=== PATIENT | female | born 1980 | race Caucasian/White ===

== ENCOUNTER 2016-07-13 12:38 | Outpatient (CLI) | payer OTHER, MEDICAID | END 2016-07-13 12:39 | disposition home or self-care (01) | DX: Z20.5 Contact with and (suspected) exposure to viral hepatitis (principal); E03.9 Hypothyroidism, unspecified; R53.83 Other fatigue; G60.9 Hereditary and idiopathic neuropathy, unspecified ==

== ENCOUNTER 2016-11-27 09:36 | Outpatient (CLI) | payer OTHER | END 2016-11-27 09:37 | disposition home or self-care (01) | LOC: LAB.F 09:36 | PROVIDERS: ATTEND Physician Assistant Medical | DX: R53.83 Other fatigue (principal) | CPT/HCPCS: 36415; 84443 ==

== ENCOUNTER 2016-12-10 17:34 | Outpatient (CLI) | payer OTHER ==
--- NOTE | 2016-12-11 09:21 | XRAY Report ---
THREE-VIEW THORACIC SPINE: 12/10/2016 CLINICAL INDICATION: Back pain. FINDINGS: AP, lateral, swimmer's views of the thoracic spine demonstrate mild degenerative disk dise ase. There is no evidence of fracture. No paraspinal hematoma is seen. IMPRESSION: MILD DEGENERATIVE DISK DISEASE. NO EVIDENCE OF FRACTURE. JOB #: [id number] EXT JOB #:[id number]
== END 2016-12-10 17:35 | disposition home or self-care (01) ==
LOC: DI 17:34
PROVIDERS: ATTEND Physician Assistant Medical
DX: M54.6 Pain in thoracic spine (principal)
CPT/HCPCS: 72072

== ENCOUNTER 2016-12-17 12:39 | Outpatient (CLI) | payer OTHER ==
--- NOTE | 2016-12-17 17:49 | XRAY Report ---
THREE-VIEW CERVICAL SPINE: 12/17/2016 CLINICAL INDICATION: Neck pain. FINDINGS: AP, lateral, odontoid views of the cervical spine demonstrate minimal degenerative disk di sease, with tiny osteophytes. There is no evidence of acute fracture or subluxation. The prevertebr al soft tissues are unremarkable. IMPRESSION: MINIMAL DEGENERATIVE CHANGES. JOB #: [id number] EXT JOB #:[id number]
== END 2016-12-17 12:40 | disposition home or self-care (01) ==
LOC: DI 12:39
PROVIDERS: ATTEND Physician Assistant Medical
DX: M54.2 Cervicalgia (principal)
CPT/HCPCS: 72040

== ENCOUNTER 2017-01-07 11:13 | Emergency (ER) | payer OTHER, MEDICAID ==
--- NOTE | 2017-01-07 12:55 | ED Physician Documentation ---
PD HPI SKIN - Stated complaint Stated Complaint: LUMP L CALF, PX - Chief complaint Chief Complaint: Ext Problem - History obtained from History obtained from: Patient - History of Present Illness Timing - duration: Days (2-3) Timing - details: Gradual onset (she has felt a small lump under skin in the area in recent past, without noted injury to the area. It is more tender, red, swollen the past couple of days. No skin sores.), Still present Location: LLE (anterolateral lower leg.) Quality / character: Painful, Discolored (red) Associated symptoms: No: Fever, Myalgias, Joint pain Contributing factors: No: Insect bite /sting Similar symptoms before: Has not had sx before Recently seen: Not recently seen Review of Systems Constitutional: denies: Fever, Chills, Myalgias GI: denies: Nausea, Vomiting Neurologic: denies: Focal weakness, Numbness PD PAST MEDICAL HISTORY - Past Medical History Cardiovascular: Atrial fibrillation, Other Respiratory: Asthma Neuro: None Endocrine/Autoimmune: HyPOthyroidism, Other GI: Other 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 : 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 HEENT: Chronic vision loss Psych: None Musculoskeletal: None Derm: Other - Past Surgical History Past Surgical History: Yes General: Cholecystectomy, 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 Derm: Other - Present Medications Home Medications: Ambulatory Orders Medication Instructions Recorded Confirmed Albuterol [Ventolin Hfa] 2 puffs INH Q4H PRN 11/27/14 01/07/17 Biotin [Norberto Biotin] 10,000 mcg PO DAILY 11/27/14 01/07/17 Cholecalciferol (Vitamin D3) 1,000 unit PO DAILY 11/27/14 01/07/17 [Vitamin D3] Folic Acid 400 mcg PO DAILY 11/27/14 01/07/17 Garlic 1 each PO BID 11/27/14 01/07/17 Goldenseal/Echinacea Purpurea 2 cap PO BID 11/27/14 01/07/17 [Echinacea & Goldenseal Cap] Levothyroxine [Synthroid] 125 mcg PO DAILY 11/27/14 01/07/17 Lisinopril 10 mg PO DAILY 11/27/14 01/07/17 Milk Thistle 150 mg PO DAILY 11/27/14 01/07/17 Multivitamin/Iron/Folic Acid 1 each PO DAILY 11/27/14 01/07/17 [Multi-Day Plus Iron Tablet] [place]-3/Dha/Epa/Fish Oil [Fish Oil] 200 mg PO DAILY 11/27/14 01/07/17 Vitamin E 400 unit PO DAILY 11/27/14 01/07/17 metFORMIN [Glucophage] 1,500 mg PO DAILY 11/27/14 01/07/17 Atenolol 12.5 mg PO BID 01/07/17 01/07/17 Azithromycin [Zithromax] 250 mg PO DAILY #4 tablet 01/07/17 HYDROcod/ACETAM 5/325 [[place] 5/325] 1 tab PO Q6H PRN #15 tablet 01/07/17 Omeprazole [PriLOSEC] 20 mg PO BID 01/07/17 01/07/17 - Allergies Allergies/Adverse Reactions: Allergies Allergy/AdvReac Type Severity Reaction Status Date / Time tetanus and diphtheria Allergy Anaphylaxis Verified 01/07/17 11:53 toxoids [tetanus & diphtheria toxoids] amoxicillin AdvReac Unknown Rash Verified 01/07/17 11:53 haloperidol [From Haldol] AdvReac Unknown Hallucinati Verified 01/07/17 11:53 ons haloperidol lactate * AdvReac Unknown Hallucinati Verified 01/07/17 11:53 [From Haldol] ons prochlorperazine edisylate * AdvReac Unknown Hallucinati Verified 01/07/17 11:53 [From Compazine] ons prochlorperazine maleate * AdvReac Unknown Hallucinati Verified 01/07/17 11:53 [From Compazine] ons cephalexin monohydrate * AdvReac Edema Verified 01/07/17 13:52 [From Keflex] - Social History Does the pt smoke?: No Smoking Status: Never smoker Does the pt drink ETOH?: No Does the pt have substance abuse?: No - Immunizations Immunizations are current?: Yes - POLST Patient has POLST: No PD ED PE NORMAL - Vitals Vital signs reviewed: Yes - General General: Alert and oriented X 3, Well developed/nourished - Neck Neck: Supple, no meningeal sign, No adenopathy - Derm Derm: Normal color, Warm and dry - Extremities Extremities: Other (left anterolateral lower leg with firm area of tissue under skin but moveable and no fluctuance. Likely lipoma. U/S has that appearance, but also some cellulitic look and there is redness and swelling locally on exam. No fluctuance and on U/S no fluid collection. ) - Neuro Neuro: Alert and oriented X 3, No motor deficit, No sensory deficit Results - Vitals Vitals: Vital Signs - 24 hr 01/07/17 01/07/17 11:18 13:47 Temperature 36.6 C 36.0 C L Heart Rate 61 62 Respiratory 16 18 Rate Blood Pressure 121/59 L 141/85 H O2 Saturation 100 97 Oxygen O2 Source Room air PD MEDICAL DECISION MAKING - ED course Complexity details: considered differential (on bedside U/S the lump looks like lipoma, but there is redness and tenderness around it so apparent cellulitis. Spot check of calf/popliteal veins show good compression and flow. ), d/w patient Departure - Departure Disposition: 01 Home, Self Care Clinical Impression: Subcutaneous lipoma Cellulitis Qualifiers: Site of cellulitis: extremity Site of cellulitis of extremity: lower extremity Laterality: left Qualified Code(s): L03.116 - Cellulitis of left lower limb Condition: Stable Record reviewed to determine appropriate education?: Yes Instructions: ED Infec Skin Cellulitis Follow-Up: Shaunna John PA-C [Primary Care Provider] - Prescriptions: HYDROcod/ACETAM 5/325 [[place] 5/325] 1 tab PO Q6H PRN #15 tablet PRN Reason: Pain Azithromycin [Zithromax] 250 mg PO DAILY #4 tablet Comments: Warm moist towels to the area a few times a day for good blood flow. I think there is some infection along with inflammation to the area. Use cephalexin as directed as antibiotic. Use Tylenol or hydrocodone if needed for pains. I think there may be a small lump of fatty tissue underneath as well and this may take several weeks or more to go away as the lump. However the tenderness and swelling of it should decrease over the next few days. Discharge Date/Time: 01/07/17 14:01
[2017-01-07] MEDS ORDERED: DEXAMETHASONE 10 MG/ML VIAL PO STA (13:22)
[2017-01-07] MEDS ORDERED: CEPHALEXIN 250 MG CAPSULE PO STA (13:22)
[2017-01-07 13:48] VITALS: BP 141/85
[2017-01-07] MEDS ORDERED: CEPHALEXIN 250 MG CAPSULE PO ONE (13:49)
[2017-01-07] MEDS ORDERED: DEXAMETHASONE 10 MG/ML VIAL ONE (13:49)
[2017-01-07] MEDS ORDERED: AZITHROMYCIN 250 MG TABLET PO STA (13:54)
[2017-01-07] MEDS ORDERED: AZITHROMYCIN 250 MG TABLET PO ONE (14:02)
== END 2017-01-07 14:01 | disposition home or self-care (01) ==
LOC: ED 11:13
DX: D17.24 Benign lipomatous neoplasm of skin and subcutaneous tissue of left leg (principal); L03.116 Cellulitis of left lower limb; I48.91 Unspecified atrial fibrillation; J45.909 Unspecified asthma, uncomplicated; E03.9 Hypothyroidism, unspecified
CPT/HCPCS: 99283; A9270

== ENCOUNTER 2017-02-23 14:06 | Outpatient (CLI) | payer OTHER, MEDICAID ==
[2017-02-23 17:52] LABS: BASOPHILS # (AUTO) 0.1 10^3/uL (0.0-0.1); BASOPHILS % (AUTO) 1.1 %; EOSINOPHILS # (AUTO) 0.4 10^3/uL (0.0-0.7); EOSINOPHILS % (AUTO) 4.3 %; HCT - HEMATOCRIT 37.3 % (37.0-47.0); HGB - HEMOGLOBIN 12.9 g/dL (12.0-16.0); LYMPHOCYTES # (AUTO) 2.2 10^3/uL (1.5-3.5); LYMPHOCYTES % (AUTO) 25.8 %; MEAN CORPUSCULAR HEMOGLOBIN 31.4 pg (27.0-31.0); MEAN CORPUSCULAR HGB CONC 34.6 g/dL (32.0-36.0); MEAN CORPUSCULAR VOLUME 90.8 fL (81.0-99.0); MEAN PLATELET VOLUME 7.6 fL (7.9-10.8); MONOCYTES # (AUTO) 0.6 10^3/uL (0.0-1.0); MONOCYTES % (AUTO) 6.8 %; NEUTROPHILS # (AUTO) 5.4 10^3/uL (1.5-6.6); RED CELL DISTRIBUTION WIDTH 12.8 % (12.0-15.0); UNCORRECTED WHITE BLOOD COUNT 8.7 x10^3/uL; WHITE BLOOD COUNT 8.7 x10^3/uL (4.8-10.8)
[2017-02-23 18:49] LABS: ALBUMIN/GLOBULIN RATIO 1.5 (1.0-2.2); BILIRUBIN,TOTAL 0.5 mg/dL (0.2-1.0); BUN - BLOOD UREA NITROGEN 14 mg/dL (6-20); CALCIUM 9.4 mg/dL (8.5-10.3); CARBON DIOXIDE - CO2 25 mmol/L (21-32); CHLORIDE 103 mmol/L (101-111); CREATININE 0.8 mg/dL (0.4-1.0); GFR - MDRD 82 (>89); GLUCOSE 102 mg/dL (70-100); POTASSIUM 3.7 mmol/L (3.5-5.0); SODIUM 137 mmol/L (135-145); TOTAL PROTEIN 7.4 g/dL (6.7-8.2)
[2017-02-25 17:07] LABS: TEST RESULT REPORT
== END 2017-02-23 14:07 | disposition home or self-care (01) ==
LOC: LAB.F 14:06
PROVIDERS: ATTEND Internal Medicine
DX: R22.9 Localized swelling, mass and lump, unspecified (principal); R53.83 Other fatigue; D64.9 Anemia, unspecified
CPT/HCPCS: 36415; 80053; 81599; 82784; 82785; 83516; 84443; 85025; 85651; 86140

== ENCOUNTER 2017-03-15 02:59 | Inpatient (IN) | payer OTHER, MEDICAID ==
[2017-03-15] MEDS ORDERED: SODIUM CHLORIDE 0.9% 1,000 ML IV ONE ×2 (03:16→04:42)
[2017-03-15] MEDS ORDERED: ONDANSETRON 4 MG/2 ML VIAL IVP STA (03:16)
[2017-03-15] MEDS ORDERED: ONDANSETRON 4 MG/2 ML VIAL ONE (03:25)
[2017-03-15 03:44] LABS: BASOPHILS % (AUTO) 0.2 %; EOSINOPHILS # (AUTO) 0.4 10^3/uL (0.0-0.7); HCT - HEMATOCRIT 35.8 % (37.0-47.0); HGB - HEMOGLOBIN 12.3 g/dL (12.0-16.0); LYMPHOCYTES # (AUTO) 1.8 10^3/uL (1.5-3.5); LYMPHOCYTES % (AUTO) 13.7 %; MEAN CORPUSCULAR HEMOGLOBIN 31.1 pg (27.0-31.0); MEAN CORPUSCULAR HGB CONC 34.4 g/dL (32.0-36.0); MEAN CORPUSCULAR VOLUME 90.3 fL (81.0-99.0); MONOCYTES # (AUTO) 0.9 10^3/uL (0.0-1.0); MONOCYTES % (AUTO) 6.5 %; NEUTROPHILS # (AUTO) 10.1 10^3/uL (1.5-6.6); NEUTROPHILS % (AUTO) 76.6 %; RED BLOOD COUNT 3.96 10^6/uL (4.20-5.40); RED CELL DISTRIBUTION WIDTH 12.6 % (12.0-15.0); UNCORRECTED WHITE BLOOD COUNT 13.2 x10^3/uL; WHITE BLOOD COUNT 13.2 x10^3/uL (4.8-10.8)
--- NOTE | 2017-03-15 03:53 | ED Physician Documentation ---
PD HPI NVD - Stated complaint Stated Complaint: DIARRHEA - Chief complaint Chief Complaint: Abd Pain - History obtained from History obtained from: Patient - History of Present Illness Timing - onset: How many days ago (3) Timing - duration: Days (3) Timing - details: Gradual onset, Still present Associated symptoms: Abdominal pain, Near syncope / syncope, Loss of appetite, Weight loss Contributing factors: Sick contact (daughter was sick with diarrhea for one day about one week ago.) Improved by: Laying still Worsened by: Eating Similar symptoms before: Has not had sx before Recently seen: Not recently seen - Additonal information Additional information: 36 y/o female with little other history has developed acute diarrhea 3 days ago and this has been profound. She did get some relief with the use of immodium but today this has not helped at all and she has been to the bathroom 16 times. She has watery flow through diarrhea. Review of Systems Constitutional: reports: Chills, Fatigue, Sweats. denies: Fever Eyes: denies: Decreased vision Ears: denies: Ear pain Nose: denies: Rhinorrhea / runny nose, Congestion Throat: denies: Sore throat Cardiac: denies: Chest pain / pressure, Palpitations Respiratory: denies: Dyspnea, Cough GI: reports: Abdominal Pain, Nausea, Diarrhea. denies: Vomiting : denies: Dysuria, Frequency Skin: denies: Rash Musculoskeletal: reports: Back pain. denies: Neck pain Neurologic: reports: Generalized weakness, Near syncope. 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 Derm: Other - Present Medications Home Medications: Ambulatory Orders Medication Instructions Recorded Confirmed Albuterol [Ventolin Hfa] 2 puffs INH Q4H PRN 11/27/14 03/15/17 Biotin [Norberto Biotin] 10,000 mcg PO DAILY 11/27/14 03/15/17 Cholecalciferol (Vitamin D3) 1,000 unit PO DAILY 11/27/14 03/15/17 [Vitamin D3] Folic Acid 400 mcg PO DAILY 11/27/14 03/15/17 Garlic 1 each PO BID 11/27/14 03/15/17 Goldenseal/Echinacea Purpurea 2 cap PO BID 11/27/14 03/15/17 [Echinacea & Goldenseal Cap] Levothyroxine [Synthroid] 125 mcg PO DAILY 11/27/14 03/15/17 Lisinopril 10 mg PO DAILY 11/27/14 03/15/17 Milk Thistle 150 mg PO DAILY 11/27/14 03/15/17 Multivitamin/Iron/Folic Acid 1 each PO DAILY 11/27/14 03/15/17 [Multi-Day Plus Iron Tablet] [place]-3/Dha/Epa/Fish Oil [Fish Oil] 200 mg PO DAILY 11/27/14 03/15/17 Vitamin E 400 unit PO DAILY 11/27/14 03/15/17 metFORMIN [Glucophage] 1,500 mg PO DAILY 11/27/14 03/15/17 Omeprazole [PriLOSEC] 20 mg PO DAILY 01/07/17 03/15/17 - Allergies Allergies/Adverse Reactions: Allergies Allergy/AdvReac Type Severity Reaction Status Date / Time tetanus and diphtheria Allergy Anaphylaxis Verified 03/15/17 03:10 toxoids [tetanus & diphtheria toxoids] amoxicillin AdvReac Unknown Rash Verified 03/15/17 03:10 haloperidol [From Haldol] AdvReac Unknown Hallucinati Verified 03/15/17 03:10 ons haloperidol lactate * AdvReac Unknown Hallucinati Verified 03/15/17 03:10 [From Haldol] ons prochlorperazine edisylate * AdvReac Unknown Hallucinati Verified 03/15/17 03:10 [From Compazine] ons prochlorperazine maleate * AdvReac Unknown Hallucinati Verified 03/15/17 03:10 [From Compazine] ons cephalexin monohydrate * AdvReac Edema Verified 03/15/17 03:10 [From Keflex] - Social History Does the pt smoke?: No Smoking Status: Never smoker Does the pt drink ETOH?: No Does the pt have substance abuse?: No - Immunizations Immunizations are current?: Yes - POLST Patient has POLST: No PD ED PE NORMAL - Vitals Vital signs reviewed: Yes (tachy ) - General General: Well developed/nourished, Other (The patient appears pale and dry) - HEENT HEENT: Atraumatic, PERRL, EOMI, Other (dry mucous membranes) - Neck Neck: Supple, no meningeal sign, No bony TTP - Cardiac Cardiac: No murmur, Other (tachy to 110) - Respiratory Respiratory: No respiratory distress, Clear bilaterally - Abdomen Abdomen: Soft, Other (mild epigastric tenderness) - Back Back: No CVA TTP, No spinal TTP - Derm Derm: Normal color, Warm and dry, No rash - Extremities Extremities: No deformity, No edema - Neuro Neuro: No motor deficit, No sensory deficit Eye Opening: Spontaneous Motor: Obeys Commands Verbal: Oriented GCS Score: 15 - Psych Psych: Normal mood, Normal affect Results - Vitals Vitals: Vital Signs - 24 hr 03/15/17 03/15/17 03:02 04:36 Temperature 35.6 C L 36.5 C Heart Rate 103 H 95 Respiratory 18 18 Rate Blood Pressure 109/83 H 111/74 O2 Saturation 100 98 Oxygen O2 Source Room air - Labs Labs: Microbiology 03/15/17 03:24 Clostridium difficile (PCR) - Final Stool Laboratory Tests 03/15/17 03/15/17 03/15/17 03:35 03:35 03:35 WBC 13.2 H RBC 3.96 L Hgb 12.3 Hct 35.8 L MCV 90.3 MCH 31.1 H MCHC 34.4 RDW 12.6 Plt Count 304 MPV 7.0 L Neut # 10.1 H Lymph # 1.8 [place] # 0.9 Eos # 0.4 Baso # 0.0 Absolute Nucleated RBC 0.00 Nucleated RBC % 0.0 Sodium 135 Potassium 3.7 Chloride 105 Carbon Dioxide 20 L Anion Gap 10.0 BUN 17 Creatinine 0.8 Estimated GFR (MDRD) 82 L Glucose 105 H Calcium 8.6 Total Bilirubin 0.8 AST 27 ALT 38 Alkaline Phosphatase 44 Total Protein 7.2 Albumin 4.2 Globulin 3.0 Albumin/Globulin Ratio 1.4 Lipase 16 L HCG, Quant < 0.60 Urine Color Urine Clarity Urine pH Ur Specific [place] Urine Protein Urine Glucose (UA) Urine Ketones Urine Occult Blood Urine Nitrite Urine Bilirubin Urine Urobilinogen Ur Leukocyte Esterase Urine RBC Urine WBC Ur Squamous Epith Cells Urine Bacteria Ur Microscopic Review Urine Culture Comments Urine HCG, Qual 03/15/17 04:00 WBC RBC Hgb Hct MCV MCH MCHC RDW Plt Count MPV Neut # Lymph # [place] # Eos # Baso # Absolute Nucleated RBC Nucleated RBC % Sodium Potassium Chloride Carbon Dioxide Anion Gap BUN Creatinine Estimated GFR (MDRD) Glucose Calcium Total Bilirubin AST ALT Alkaline Phosphatase Total Protein Albumin Globulin Albumin/Globulin Ratio Lipase HCG, Quant Urine Color YELLOW Urine Clarity HAZY Urine pH 5.5 Ur Specific [place] 1.025 Urine Protein NEGATIVE Urine Glucose (UA) NEGATIVE Urine Ketones NEGATIVE Urine Occult Blood MODERATE H Urine Nitrite NEGATIVE Urine Bilirubin NEGATIVE Urine Urobilinogen 0.2 (NORMAL) Ur Leukocyte Esterase NEGATIVE Urine RBC 0-5 Urine WBC 0-3 Ur Squamous Epith Cells MOD Squamous H Urine Bacteria None Seen Ur Microscopic Review INDICATED Urine Culture Comments NOT INDICATED Urine HCG, Qual TNP Procedures - IVC sono (time) 0315 Bedside IVC sono: IVC measures (cm) (0.87), IVC collapsed c insp (cm) (complete) , Dehydration PD MEDICAL DECISION MAKING - ED course Complexity details: reviewed old records, reviewed results, re-evaluated patient , considered differential, d/w patient ED course: 36 y/o female with acute flow through diarrhea is dehydrated and is given IV saline. She is given Lomotil without improvement in her diarrhea she has numerous episodes in the emergency department's test specimen is obtained and she continues to have frequent watery stool. She is given a second dose of Lomotil and 2 mg of morphine intravenously and continues to have diarrhea following that. The patient does appear to be in some misery and she is admitted to observation under the care of Dr. López. Departure - Departure Disposition: ED Place in Observation Clinical Impression: Dehydration Diarrhea Qualifiers: Diarrhea type: infectious Qualified Code(s): A09 - Infectious gastroenteritis and colitis, unspecified
[2017-03-15 03:54] LABS: ALBUMIN/GLOBULIN RATIO 1.4 (1.0-2.2); BILIRUBIN,TOTAL 0.8 mg/dL (0.2-1.0); CALCIUM 8.6 mg/dL (8.5-10.3); CREATININE 0.8 mg/dL (0.4-1.0); POTASSIUM 3.7 mmol/L (3.5-5.0); TOTAL PROTEIN 7.2 g/dL (6.7-8.2)
[2017-03-15] MEDS ORDERED: DIPHENOX/ATROPINE 2.5/0.025 MG TABLET PO STA ×2 (04:03→04:56)
[2017-03-15 04:11] LABS: BILIRUBIN,URINE NEGATIVE (NEGATIVE); PH,URINE 5.5 PH (5.0-7.5)
[2017-03-15] MEDS ORDERED: DIPHENOX/ATROPINE 2.5/0.025 MG TABLET PO ONE ×2 (04:12→05:02)
[2017-03-15 04:19] LABS: UA w/ MICROSCOPIC CHARGE YES; UR CULTURE IF IND NOT INDICATED; WBC,URINE 0-3 /HPF (0-5)
[2017-03-15] MEDS ORDERED: MORPHINE 2 MG/ML SYRINGE IVP STA (04:57)
[2017-03-15] MEDS ORDERED: MORPHINE 2 MG/ML SYRINGE ONE (05:02)
[2017-03-15] MEDS ORDERED: ACETAMINOPHEN 325 MG TABLET PO PRN (06:07)
[2017-03-15] MEDS ORDERED: ONDANSETRON ODT 4 MG TABLET TL PRN (06:07)
--- NOTE | 2017-03-15 06:20 | HISTORY & PHYSICAL EXAMINATION ---
Chief Complaint - Chief Complaint Chief Complaint: Unremitting diarrhea for the last few days History of Present Illness - Admitted From Admitted From:: Emergency room - History Obtained From Records Reviewed: [facility] History obtained from: Patient and Dr. 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 She said a week ago her youngest child came home with diarrhea and it was a self resolved illness of only about 12 hours duration. About 2 days after that she came down with diarrhea. She is having diarrhea too numerous to count times. She has no appetite. A salty metallic taste in her mouth. Nausea but no emesis. While the diarrhea is not bloody, her bottom is become quite irritated and she has bright red blood when she wipes now and she thinks she has fissures or hemorrhoids. Her anus is become very tender. She has had some chills but no fever. No body rashes. The diarrhea is watery and clear. Mild generalized abdominal pain. In the emergency room she was evaluated by Dr. Blackmon and is normotensive, afebrile. White cell count is 13,000. Potassium creatinine are normal. Chloride is normal. Urinalysis is normal. Stool is negative for C. difficile toxin. She is received 2 L of normal saline, a dose of Lomotil, Zofran, and a single dose of morphine. In spite of this she is still gotten up close to a dozen times to have frequent small watery bowel movements. Dr. Blackmon would like her placed under observation for continued hydration and continued use of antimotility agents to get her diarrhea to slow down. History - Past Medical History Cardiovascular: reports: Atrial fibrillation (Paroxysmal. In the past she was using atenolol because her heart rate go up to 180. When atenolol ceased being made by the certified control systems technician she was changed to metoprolol. However metoprolol resulted in too many episodes of bradycardia and that was discontinued.), Other (Orthostatic hypotension) Respiratory: reports: Asthma (Seasonal, due to allergies, occasional use of oral steroids. As needed use of albuterol no more than 2 times a week. She has never been intubated for it.) Neuro: reports: Other (Dysautonomia variant. Manifestations of been her tachycardia and orthostatic hypotension so far ) Endocrine/Autoimmune: reports: HyPOthyroidism (Viki's), Other (Polycystic ovarian disease with morbid obesity, metabolic syndrome, insulin resistance.) GI: reports: Other (JOSUE. Uncle has of cirrhosis from that) EKG MANAGER: reports: Ovarian cysts (Dad is 62 years old and has severe alcoholism, diabetes, hypertension and hyperlipidemia), Other () : reports: None HEENT: reports: Chronic vision loss (And needs lenses for far vision) Psych: reports: None Musculoskeletal: reports: Scoliosis Derm: reports: None MRSA Hx?: No Other Past Medical History: Hematologic: She has a chronic iron deficiency anemia with a low ferritin level. She has had an EGD and colonoscopy. 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 She is seen by Mateusz Dixon MD. She does not respond to oral iron therapy and asked that she has had several iron infusions. Bone marrow biopsies under discussion - Past Surgical History General: reports: Cholecystectomy, Colonoscopy, EGD /EKG MANAGER: reports: section - Family & Social History Living arrangement: At home Living Situation: With family Social History Notes: She was born in [place]. She works as an LOG SORTER at a local care home facility. [place] [facility] [place] years ago to leave [place] in the high cost of living as well as the unsafe neighborhood for her children. to her first . They live in their own home. She is still completely independent with activities of daily living in spite of the dysautonomia. She denies any history of recreational substance abuse. Specifically no cocaine, cannabis, heroin, LSD, or methamphetamines. She denies any history of smoking tobacco and denies any history of alcohol abuse - Substance History Use: Uses substance without health or social issues: NONE - POLST Patient has POLST: No POLST Status: Full Code Meds/Allgy - Home Medications Home Medications: Ambulatory Orders Medication Instructions Recorded Confirmed Albuterol [Ventolin Hfa] 2 puffs INH Q4H PRN 11/27/14 03/15/17 Biotin [Norberto Biotin] 10,000 mcg PO DAILY 11/27/14 03/15/17 Cholecalciferol (Vitamin D3) 1,000 unit PO DAILY 11/27/14 03/15/17 [Vitamin D3] Folic Acid 400 mcg PO DAILY 11/27/14 03/15/17 Garlic 1 each PO BID 11/27/14 03/15/17 Goldenseal/Echinacea Purpurea 2 cap PO BID 11/27/14 03/15/17 [Echinacea & Goldenseal Cap] Levothyroxine [Synthroid] 125 mcg PO DAILY 11/27/14 03/15/17 Lisinopril 10 mg PO DAILY 11/27/14 03/15/17 Milk Thistle 150 mg PO DAILY 11/27/14 03/15/17 Multivitamin/Iron/Folic Acid 1 each PO DAILY 11/27/14 03/15/17 [Multi-Day Plus Iron Tablet] [place]-3/Dha/Epa/Fish Oil [Fish Oil] 200 mg PO DAILY 11/27/14 03/15/17 Vitamin E 400 unit PO DAILY 11/27/14 03/15/17 metFORMIN [Glucophage] 1,500 mg PO DAILY 11/27/14 03/15/17 Omeprazole [PriLOSEC] 20 mg PO DAILY 01/07/17 03/15/17 - Allergies Allergies/Adverse Reactions: Allergies Allergy/AdvReac Type Severity Reaction Status Date / Time tetanus and diphtheria Allergy Anaphylaxis Verified 03/15/17 03:10 toxoids [tetanus & diphtheria toxoids] amoxicillin AdvReac Unknown Rash Verified 03/15/17 03:10 haloperidol [From Haldol] AdvReac Unknown Hallucinati Verified 03/15/17 03:10 ons haloperidol lactate * AdvReac Unknown Hallucinati Verified 03/15/17 03:10 [From Haldol] ons prochlorperazine edisylate * AdvReac Unknown Hallucinati Verified 03/15/17 03:10 [From Compazine] ons prochlorperazine maleate * AdvReac Unknown Hallucinati Verified 03/15/17 03:10 [From Compazine] ons cephalexin monohydrate * AdvReac Edema Verified 03/15/17 03:10 [From Keflex] Review of Systems - Constitutional Constitutional: reports: Fatigue, Chills, Weakness, Weight gain, Weight loss ( She sees saws between weight loss and weight gain) - Eyes Eyes: reports: Other (She cannot see for distance and wears lenses). denies: Pain, Irritation, Field loss - Ears, Nose & Throat Ears, Nose & Throat: reports: Nasal congestion, Postnasal drainage (Depending on the seat is in with her allergies). denies: Ear pain, Hearing loss, Vertigo - Cardiovascular Cariovascular: reports: Palpitations, Lightheadedness - Respiratory Respiratory: reports: Wheezing (With her asthma that comes and goes depending on the season and allergies.), SOB with exertion, Apnea (Has been seen by the sleep center in 2015 and she does not have obstructive sleep apnea but she feels like she does) - Gastrointestinal Gastrointestinal: reports: Abdominal pain, Diarrhea, Rectal bleeding (Scant with spots of blood on the toilet paper), Nausea, Reflux/heartburn, Poor appetite, Other (Although she has a history of gastric ulcers on EGD she denies melena) - Genitourinary Genitourinary: reports: Other (Vaginal lesions in the past. Was seen for biopsy pain in the emergency room in the last year. No history of STDs) - Musculoskeletal Musculoskeletal: reports: Back pain, Muscle weakness (At times) - Integumentary Integumentary: denies: Rash, Pruritis, Lesions - Neurological Neurological: reports: General weakness, Dizziness, Numbness (Starting in the last year). denies: Focal weakness, Headache, Memory problems, Pre-existing deficit, Abnormal gait, Seizures, Incoordination, Slurred speech - Psychiatric Psychiatric: denies: Depression, Anxiety, Suicidal - Endocrine Endocrine: denies: Polyuria, Polydypsia, Polyphagia - Hematologic/Lymphatic Hematologic/Lymphatic: reports: Anemia. denies: Bruising, Petechiae, Lymphadenopathy, Bleeding tendencies Exam - Vital Signs Reviewed Vital Signs: Yes Vital Signs: Vital Signs x48h Temp Pulse Resp BP Pulse Ox 03/15/17 05:50 35.7 C L 83 16 116/73 100 03/15/17 04:36 36.5 C 95 18 111/74 98 03/15/17 03:02 35.6 C L 103 H 18 109/83 H 100 - Physical Exam General Appearance: positive: No acute distress, Alert, Other (Mildly overweight young white female in no acute distress) Eyes Bilateral: positive: PERRL, EOMI ENT: positive: Dry mucous membranes. negative: Purulent nasal drainage, Pharyngeal erythema Neck: negative: No JVD, Lymphadenopathy (R), Lymphadenopathy (L), Stiff neck, Carotid bruit Respiratory: positive: Chest non-tender, No respiratory distress. negative: Wheezes, Rales, Rhonchi Cardiovascular: positive: Regular rate & rhythm. negative: Systolic murmur, Gallop/S4, Friction rub Peripheral Pulses: positive: 2+ Abdomen: positive: No organomegaly, Nml bowel sounds, No distention, Tenderness (Very mild and generalized). 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 difficile was appropriate to review. She was negative. She has a young child at home who was ill with this and now she is sick with it but no one else at home is sick with it. Stool culture has been done and pending for Salmonella Shigella enterotoxigenic E. coli. Continue with Lomotil every 3 hours. Change IV fluids to D5 normal saline. Add cholestyramine to see if we can slow down her frequency of bowel movements. (2) History of iron deficiency anemia Conclusion/Plan: Hemoglobin and hematocrit currently normal. She is followed by the medical ambulatory clinic oncologist. She states that she is due to have her iron studies done. Plan: Check with the [facility] to see what orders are in place and have those done while she was here. That is her request. - Lab Results Fish Bones: 03/15/17 03:35 03/15/17 03:35 Issues/Core Measures - Anticipated LOS Anticipated Stay Length: Less than 2 midnights - DVT/VTE - Prophylaxis VTE/DVT Device ordered at admit?: Yes VTE/DVT Prophylaxis med ordered at admit?: No Not Ordered - Medical Reason: Not indicated
[2017-03-15] MEDS ORDERED: ALBUTEROL NEB 2.5 MG/3 ML INH PRN (06:48)
[2017-03-15] MEDS: POLYETHYLENE GLYCOL 3350 17 GM PACKET PO SCH (07:13)
[2017-03-15] MEDS: SODIUM CHLORIDE FLUSH 0.9% 10 ML SYRINGE IVP SCH ×2 (07:13→22:26)
[2017-03-15] MEDS: DEXTROSE 5%-0.9% NACL 1,000 ML IV SCH ×3 (07:14→23:02)
[2017-03-15] MEDS: SODIUM CHLORIDE FLUSH 0.9% 10 ML SYRINGE IVP PRN (07:18)
[2017-03-15 07:19] LABS: IRON 56 ug/dL (28-170); TOTAL IRON BINDING CAPACITY 356 ug/dL (250-450); TRANSFERRIN 254 mg/dL (192-382)
[2017-03-15] MEDS: ONDANSETRON 4 MG/2 ML VIAL IVP PRN ×3 (07:36→20:14)
[2017-03-15] MEDS: KETOROLAC 15 MG/ML VIAL IVP PRN ×2 (07:36→16:18)
[2017-03-15] MEDS: CHOLESTYRAMINE 4 GM PACKET PO SCH ×2 (08:19→20:14)
[2017-03-15] MEDS: FOLIC ACID 1 MG TABLET PO SCH (08:19)
[2017-03-15] MEDS: DIPHENOX/ATROPINE 2.5/0.025 MG TABLET PO PRN ×4 (08:19→20:14)
[2017-03-15] MEDS: CHOLECALCIFEROL 1,000 UNIT TABLET PO SCH (08:19)
[2017-03-15] MEDS: LEVOTHYROXINE 125 MCG TABLET PO SCH (08:20)
[2017-03-15] MEDS: traMADol 50 MG TABLET PO PRN ×4 (08:43→22:25)
--- NOTE | 2017-03-15 14:58 | PROVIDER PROGRESS NOTE ---
Subjective - Prog Note Date Prog Note Date: 03/15/17 - Subjective Pt reports feeling: No change Subjective: pt state she still has some diarrhea, and right upper abdominal pain Current Medications - Current Medications Current Medications: Active Medications Acetaminophen (Tylenol) 650 mg PO Q4HR PRN PRN Reason: Pain 1 to 4 Albuterol () 2.5 mg INH RTQ4H PRN PRN Reason: Wheezing Cholecalciferol (Vitamin D3) 1,000 unit PO DAILY [facility] Last Admin: 03/15/17 08:19 Dose: 1,000 unit Cholestyramine/Sucrose (Questran) 4 gm PO BID [facility] Last Admin: 03/15/17 08:19 Dose: 4 gm Diphenoxylate HCl/Atropine (Lomotil) 1 tab PO Q3H PRN PRN Reason: Diarrhea Last Admin: 03/15/17 14:30 Dose: 1 tab Folic Acid () 0.5 mg PO DAILY [facility] Last Admin: 03/15/17 08:19 Dose: 0.5 mg Dextrose/Sodium Chloride (D5ns) 1,000 mls @ 150 mls/hr IV .Q6H40M [facility] Stop: 03/15/17 20:19 Last Infusion: 03/15/17 13:05 Dose: 150 mls/hr Ketorolac Tromethamine (Toradol Inj) 15 mg IVP Q6HR PRN PRN Reason: PAIN Stop: 03/20/17 07:03 Last Admin: 03/15/17 07:36 Dose: 15 mg Levothyroxine Sodium (Synthroid) 125 mcg PO QDAC [facility] Last Admin: 03/15/17 08:20 Dose: 125 mcg Ondansetron HCl (Zofran Inj) 4 mg IVP Q6HR PRN PRN Reason: Nausea / Vomiting Last Admin: 03/15/17 12:49 Dose: 4 mg Ondansetron HCl (Zofran Odt) 4 mg TL Q6HR PRN PRN Reason: Nausea / Vomiting Polyethylene Glycol (Miralax) 17 gm PO DAILY [facility] Last Admin: 03/15/17 07:13 Dose: Not Given Sodium Chloride (Normal Saline Flush 0.9%) 10 ml IVP PRN PRN PRN Reason: NEEDED PER PROVIDER ORDERS Last Admin: 03/15/17 07:18 Dose: 10 ml Sodium Chloride (Normal Saline Flush 0.9%) 10 ml IVP Q8HR MU Last Admin: 03/15/17 07:13 Dose: Not Given Tramadol HCl (Ultram) 50 mg PO Q4HR PRN PRN Reason: PAIN Last Admin: 03/15/17 12:49 Dose: 50 mg Albuterol [Ventolin Hfa] 2 puffs INH Q4H PRN 11/27/14 Biotin [Norberto Biotin] 10,000 mcg PO DAILY 11/27/14 Cholecalciferol (Vitamin D3) [Vitamin D3] 1,000 unit PO DAILY 11/27/14 Folic Acid 400 mcg PO DAILY 11/27/14 Garlic 1 each PO BID 11/27/14 Goldenseal/Echinacea Purpurea [Echinacea & Goldenseal Cap] 2 cap PO BID Levothyroxine [Synthroid] 125 mcg PO DAILY 11/27/14 Lisinopril 10 mg PO DAILY 11/27/14 Milk Thistle 150 mg PO DAILY 11/27/14 Multivitamin/Iron/Folic Acid [Multi-Day Plus Iron Tablet] 1 each PO DAILY [place]-3/Dha/Epa/Fish Oil [Fish Oil] 200 mg PO DAILY 11/27/14 Vitamin E 400 unit PO DAILY 11/27/14 metFORMIN [Glucophage] 500 mg PO TIDWM 11/27/14 Omeprazole [PriLOSEC] 20 mg PO DAILY 01/07/17 Objective - Vital Signs/Intake & Output Reviewed Vital Signs: Yes Vital Signs: Vital Signs x48h Temp Pulse Resp BP Pulse Ox 03/15/17 07:57 36.7 C 82 18 109/70 100 Intake & Output: Intake & Output 03/13/17 03/14/17 03/14/17 03/15/17 00:59 00:59 23:59 23:59 Intake Total 736.25 Output Total 1200 Balance -463.75 - Objective General Appearance: positive: No acute distress, Alert. negative: Lethargic Eyes Bilateral: negative: Normal inspection, PERRL, EOMI, No lid inflammation, Conjunctivae nml ENT: positive: ENT inspection nml, Pharynx nml, No signs of dehydration. negative: Purulent nasal drainage, Pharyngeal erythema, Oral lesions Neck: positive: Nml inspection, Thyroid nml, Trachea midline. negative: Thyromegaly, Lymphadenopathy (R), Lymphadenopathy (L), Stiff neck, Carotid bruit , Swelling/bruising, Tracheal deviation Respiratory: positive: Chest non-tender, No respiratory distress, Breath sounds nml. negative: Wheezes, Rales, Rhonchi Cardiovascular: positive: Regular rate & rhythm, No murmur, No gallop. negative : Irregularly irregular, Extrasystoles, Tachycardia, Bradycardia, Systolic murmur, Diastolic murmur Peripheral Pulses: 2+ Radial (R), 2+ Radial (L), 2+ Dorsalis pedis (R), 2+ Dorsalis pedis (L) Abdomen: positive: Non-tender, Nml bowel sounds, No distention, Other. negative : Tenderness, Guarding, Rebound Back: positive: Nml inspection. negative: CVA tenderness (R), CVA tenderness (L ) Skin: positive: Color nml, Warm, Dry. negative: Cyanosis, Diaphoresis, Pallor, Skin rash Extremities: positive: Non-tender, Full ROM, Nml appearance. negative: Pedal edema, Joint swelling, Jeanette's sign/cords Neurologic/Psychiatric: positive: Oriented x3, Motor nml, Sensation nml, Mood/ affect nml. negative: Weakness, Sensory loss, Facial droop, Slurred/abnml speech, Depressed mood/affect - Lab Results Fish Bones: 03/15/17 03:35 03/15/17 03:35 Assessment/Plan - Problem List (1) Diarrhea Impression: (1) diarrhea C.Diff is negative. pt still continue to have diarrhea, denies bloody stool. Lipase and TSH are unremarkable continue to have Lomotil continue IVF CT of abdomen, pt has elevated WBC, R/O colitis, will follow up (2) Viral gastroenteritis Conclusion/Plan: continue IVF, continue current treatment She is an employee of a [employer] facility and C. difficile was appropriate to review. She was negative. She has a young child at home who was ill with this and now she is sick with it but no one else at home is sick with it. Stool culture has been done and pending for Salmonella Shigella enterotoxigenic E. coli. Continue with Lomotil every 3 hours. Change IV fluids to D5 normal saline. Add cholestyramine to see if we can slow down her frequency of bowel movements. (3) History of iron deficiency anemia Conclusion/Plan: Hemoglobin and hematocrit currently normal. She is followed by the medical ambulatory clinic oncologist. She states that she is due to have her iron studies done. (4) right upper abdominal pain Lipase is unremarkable US of abd to R/O bile obstruction or inflammation, will follow up Qualifiers: Qualified Code(s): A09 - Infectious gastroenteritis and colitis, unspecified
--- NOTE | 2017-03-15 17:50 | Ultrasound Preliminary Report ---
Exam: US ABDOMEN COMPLETE IMPRESSION: 1. Severe fatty liver, worse than the prior. 2. New mild right hydronephrosis. 3. Small exophytic left mid renal cyst, measures smaller than the prior and appears simple. [facility] SITE ID: [id number]
--- NOTE | 2017-03-15 17:53 | Ultrasound Report ---
EXAM: ABDOMEN ULTRASOUND EXAM DATE: 03/15/2017 04:49 PM. CLINICAL HISTORY: Right upper and some diffuse abdominal pain. COMPARISON: Abdomen ultrasound 12/21/2014. TECHNIQUE: Real-time scanning was performed with static images obtained. FINDINGS: Liver: Severe fatty liver. Liver length 18.8 cm. Main portal vein flow: Hepatopetal. Gallbladder: Surgically absent. Biliary System: Common duct measures 6.6 mm. No intrahepatic or extrahepatic ductal dilatation. Pancreas: Visualized portion is unremarkable. Limited visualization. Kidneys: Right: 11.9 cm longitudinally. Mild hydronephrosis. No renal calculi seen. Renal cortical thickness a nd echotexture appear within normal limits. There is limited visualization due to limited penetration . Left: 11.8 cm longitudinally. Exophytic left mid renal cyst measuring 1.2 x 1.3 x 1.2 cm, measures sm aller than the prior. No complex renal cystic features seen. Renal cortical thickness and echotexture appear within normal limits. No hydronephrosis. No renal calculi seen. Spleen: 15.2 cm. splenomegaly. Aorta and Inferior Vena Cava: The visualized portions appear unremarkable. IMPRESSION: 1. Severe fatty liver, worse than the prior. 2. New mild right hydronephrosis. 3. Small exophytic left mid renal cyst, measures smaller than the prior and appears simple. [facility] Referring Provider Line: [phone] SITE ID: [id number]
[2017-03-15] MEDS ORDERED: IOPAMIDOL-300 50 ML VIAL PO ONE (18:07)
[2017-03-15] MEDS ORDERED: IOPAMIDOL-300 100 ML VIAL IVP ONE (18:07)
--- NOTE | 2017-03-15 20:01 | CT Preliminary Report ---
Exam: CT ABDOMEN/PELVIS W/ IMPRESSION: 1. No localizing acute inflammatory process. 2. Small fat-containing umbilical hernia. [facility] SITE ID: [id number]
--- NOTE | 2017-03-15 20:03 | CT Report ---
EXAM: CT ABDOMEN AND PELVIS EXAM DATE: 03/15/2017 06:14 PM. CLINICAL HISTORY: Abdominal pain and diarrhea. COMPARISONS: None. TECHNIQUE: Routine helical CT imaging was performed through the abdomen and pelvis. IV contrast: 100 cc Isovue-300 IV. Enteric contrast: Yes. Reconstructions: Coronal and sagittal. In accordance with CT protocol optimization, one or more of the following dose reduction techniques w ere utilized for this exam: automated exposure control, adjustment of mA and/or KV based on patient s ize, or use of iterative reconstructive technique. FINDINGS: Lung Bases: Unremarkable. Liver: No focal liver lesion or intrahepatic biliary dilatation. Gallbladder/Bile Ducts: Surgically absent. Spleen: Normal. Pancreas: Normal. Adrenal Glands: Normal. Kidneys: Normal. No masses or hydronephrosis. Peritoneal Cavity/Bowel: There is a small fat-containing umbilical hernia. The bowel is normal in gracia iber without transition zone. No abnormal fluid or gas collection. The appendix is well visualized an d normal. Pelvic Organs: Uterus is anteverted. Urinary bladder is unremarkable. Vasculature: No aneurysms or other significant abnormality. Bones: No significant abnormality. Other: None. IMPRESSION: 1. No localizing acute inflammatory process. 2. Small fat-containing umbilical hernia. [facility] Referring Provider Line: [phone] SITE ID: [id number]
[2017-03-16] MEDS: traMADol 50 MG TABLET PO PRN ×4 (02:06→21:45)
[2017-03-16] MEDS: DIPHENOX/ATROPINE 2.5/0.025 MG TABLET PO PRN ×2 (02:07→17:15)
[2017-03-16] MEDS: ONDANSETRON 4 MG/2 ML VIAL IVP PRN ×4 (02:23→23:20)
[2017-03-16 05:22] LABS: BASOPHILS % (AUTO) 0.5 %; EOSINOPHILS # (AUTO) 0.4 10^3/uL (0.0-0.7); EOSINOPHILS % (AUTO) 5.4 %; HCT - HEMATOCRIT 30.9 % (37.0-47.0); HGB - HEMOGLOBIN 10.6 g/dL (12.0-16.0); LYMPHOCYTES # (AUTO) 1.2 10^3/uL (1.5-3.5); LYMPHOCYTES % (AUTO) 16.4 %; MEAN CORPUSCULAR HEMOGLOBIN 31.9 pg (27.0-31.0); MEAN CORPUSCULAR HGB CONC 34.3 g/dL (32.0-36.0); MEAN CORPUSCULAR VOLUME 93.1 fL (81.0-99.0); MONOCYTES # (AUTO) 0.4 10^3/uL (0.0-1.0); MONOCYTES % (AUTO) 6.1 %; NEUTROPHILS # (AUTO) 5.2 10^3/uL (1.5-6.6); NEUTROPHILS % (AUTO) 71.6 %; NUCLEATED RED BLOOD CELLS AUTO 0.1 /100WBC; RED BLOOD COUNT 3.32 10^6/uL (4.20-5.40); RED CELL DISTRIBUTION WIDTH 12.5 % (12.0-15.0); UNCORRECTED WHITE BLOOD COUNT 7.3 x10^3/uL; WHITE BLOOD COUNT 7.3 x10^3/uL (4.8-10.8)
[2017-03-16 05:32] LABS: ALBUMIN/GLOBULIN RATIO 1.4 (1.0-2.2); BILIRUBIN,TOTAL 0.6 mg/dL (0.2-1.0); CALCIUM 7.3 mg/dL (8.5-10.3); CREATININE 0.8 mg/dL (0.4-1.0); MAGNESIUM 1.4 mg/dL (1.7-2.8); POTASSIUM 3.6 mmol/L (3.5-5.0); TOTAL PROTEIN 5.6 g/dL (6.7-8.2)
[2017-03-16] MEDS: SODIUM CHLORIDE FLUSH 0.9% 10 ML SYRINGE IVP SCH ×3 (05:49→17:15)
[2017-03-16] MEDS: LEVOTHYROXINE 125 MCG TABLET PO SCH (06:13)
[2017-03-16] MEDS: DEXTROSE 5%-0.9% NACL 1,000 ML IV SCH ×3 (06:23→19:15)
--- NOTE | 2017-03-16 06:51 | PROVIDER PROGRESS NOTE ---
Subjective - Prog Note Date Prog Note Date: 03/16/17 Prog Note Time: 06:49 - Subjective Pt reports feeling: Worse Subjective: Ana Maria continues to have uncontrolled diarrhea, N/V and now has a headache in her posterior scalp extending into her neck. Current Medications - Current Medications Current Medications: Active Medications Generic Name Dose Route Start Last Admin Trade Name Freq PRN Reason Stop Dose Admin Acetaminophen 650 mg 03/15/17 06:07 Tylenol PO Q4HR PRN Pain 1 to 4 Albuterol 2.5 mg 03/15/17 06:48 INH RTQ4H PRN Wheezing Cholecalciferol 1,000 unit 03/15/17 09:00 03/15/17 08:19 Vitamin D3 PO 1,000 unit DAILY MU Administration Cholestyramine/Sucrose 4 gm 03/15/17 07:00 03/15/17 20:14 Questran PO 4 gm BID MU Administration Diphenoxylate HCl/Atropine 1 tab 03/15/17 06:07 03/16/17 02:07 Lomotil PO 1 tab Q3H PRN Administration Diarrhea Folic Acid 0.5 mg 03/15/17 09:00 03/15/17 08:19 PO 0.5 mg DAILY MU Administration Dextrose/Sodium Chloride 1,000 mls @ 125 mls/hr 03/15/17 23:00 03/16/17 06:23 D5ns IV 125 mls/hr .Q8H MU Administration Ketorolac Tromethamine 15 mg 03/15/17 07:04 03/15/17 16:18 Toradol Inj IVP 03/20/17 07:03 15 mg Q6HR PRN Administration PAIN Levothyroxine Sodium 125 mcg 03/15/17 07:00 03/16/17 06:13 Synthroid PO 125 mcg QDAC MU Administration Ondansetron HCl 4 mg 03/15/17 06:07 03/16/17 02:23 Zofran Inj IVP 4 mg Q6HR PRN Administration Nausea / Vomiting Ondansetron HCl 4 mg 03/15/17 06:07 Zofran Odt TL Q6HR PRN Nausea / Vomiting Polyethylene Glycol 17 gm 03/15/17 09:00 03/15/17 07:13 Miralax PO Not Given DAILY MU Sodium Chloride 10 ml 03/15/17 06:07 03/15/17 07:18 Normal Saline Flush 0.9% IVP 10 ml PRN PRN Administration NEEDED PER PROVIDER ORDERS Sodium Chloride 10 ml 03/15/17 14:00 03/16/17 05:49 Normal Saline Flush 0.9% IVP Not Given Q8HR MU Tramadol HCl 50 mg 03/15/17 07:04 03/16/17 06:13 Ultram PO 50 mg Q4HR PRN Administration PAIN Albuterol [Ventolin Hfa] 2 puffs INH Q4H PRN 11/27/14 Biotin [Norberto Biotin] 10,000 mcg PO DAILY 11/27/14 Cholecalciferol (Vitamin D3) [Vitamin D3] 1,000 unit PO DAILY 11/27/14 Folic Acid 400 mcg PO DAILY 11/27/14 Garlic 1 each PO BID 11/27/14 Goldenseal/Echinacea Purpurea [Echinacea & Goldenseal Cap] 2 cap PO BID Levothyroxine [Synthroid] 125 mcg PO DAILY 11/27/14 Lisinopril 10 mg PO DAILY 11/27/14 Milk Thistle 150 mg PO DAILY 11/27/14 Multivitamin/Iron/Folic Acid [Multi-Day Plus Iron Tablet] 1 each PO DAILY [place]-3/Dha/Epa/Fish Oil [Fish Oil] 200 mg PO DAILY 11/27/14 Vitamin E 400 unit PO DAILY 11/27/14 metFORMIN [Glucophage] 500 mg PO TIDWM 11/27/14 Omeprazole [PriLOSEC] 20 mg PO DAILY 01/07/17 Objective - Vital Signs/Intake & Output Reviewed Vital Signs: Yes Vital Signs: Vital Signs x48h Temp Pulse Resp BP Pulse Ox 03/16/17 05:00 37.0 C 74 18 98/55 L 100 03/16/17 00:40 36.6 C 89 17 93/61 100 Intake & Output: Intake & Output 03/14/17 03/14/17 03/15/17 03/16/17 00:59 23:59 23:59 23:59 Intake Total 2880.00 1270 Output Total 2075 1180 Balance 805.00 90 - Objective General Appearance: positive: Alert, Moderate distress, Anxious (at times) Eyes Bilateral: positive: Normal inspection, PERRL ENT: positive: ENT inspection nml, Pharynx nml Neck: positive: Nml inspection, Thyroid nml, No JVD, Trachea midline, Stiff neck (mild due to newly located BOONE, posterior/neck.) Respiratory: positive: Chest non-tender Cardiovascular: positive: Regular rate & rhythm, No murmur Peripheral Pulses: 2+ Radial (R), 2+ Radial (L), 2+ Dorsalis pedis (R), 2+ Dorsalis pedis (L) Abdomen: positive: Tenderness, Guarding, Hepatomegaly, Splenomegaly, Abnml bowel sounds (Hyperactive-diffuse) Rectal: positive: Tenderness (excoriated anus, A & D ointment ordered.) Skin: positive: Warm, Dry, Pallor Extremities: positive: Non-tender, Full ROM, Nml appearance, Pedal edema (trace , BLE) Neurologic/Psychiatric: positive: Oriented x3, Motor nml, Sensation nml, Weakness, Depressed mood/affect Reflexes: Bicep (R): 3+, Bicep (L): 3+ - Lab Results Fish Bones: 03/17/17 05:17 03/17/17 05:17 Other Labs: Lab Results x24hrs 03/16/17 03/16/17 Range/Units 05:05 05:05 WBC 7.3 (4.8-10.8) x10^3/uL RBC 3.32 L (4.20-5.40) 10^6/uL Hgb 10.6 L (12.0-16.0) g/dL Hct 30.9 L (37.0-47.0) % MCV 93.1 (81.0-99.0) fL MCH 31.9 H (27.0-31.0) pg MCHC 34.3 (32.0-36.0) g/dL RDW 12.5 (12.0-15.0) % Plt Count 224 (130-450) 10^3/uL MPV 7.0 L (7.9-10.8) fL Neut # 5.2 (1.5-6.6) 10^3/uL Lymph # 1.2 L (1.5-3.5) 10^3/uL [place] # 0.4 (0.0-1.0) 10^3/uL Eos # 0.4 (0.0-0.7) 10^3/uL Baso # 0.0 (0.0-0.1) 10^3/uL Absolute Nucleated RBC 0.00 x10^3/uL Nucleated RBC % 0.1 /100WBC Sodium 138 (135-145) mmol/L Potassium 3.6 (3.5-5.0) mmol/L Chloride 114 H (101-111) mmol/L Carbon Dioxide 20 L (21-32) mmol/L Anion Gap 4.0 L (6-13) BUN 7 (6-20) mg/dL Creatinine 0.8 (0.4-1.0) mg/dL Estimated GFR (MDRD) 82 L (>89) Glucose 102 H (70-100) mg/dL Calcium 7.3 L (8.5-10.3) mg/dL Magnesium 1.4 L (1.7-2.8) mg/dL Total Bilirubin 0.6 (0.2-1.0) mg/dL AST 29 (10-42) IU/L ALT 51 (10-60) IU/L Alkaline Phosphatase 38 L (42-121) IU/L Total Protein 5.6 L (6.7-8.2) g/dL Albumin 3.3 (3.2-5.5) g/dL Globulin 2.3 (2.1-4.2) g/dL Albumin/Globulin Ratio 1.4 (1.0-2.2) - Diagnostic Imaging Diagnostic Imaging Results: positive: Final report reviewed Diagnostic Imaging Comments: CT abdomen 03/15/17:IMPRESSION: 1. No localizing acute inflammatory process. 2. Small fat-containing umbilical hernia. Abdominal US 03/15/17: IMPRESSION: 1. Severe fatty liver, worse than the prior. 2. New mild right hydronephrosis. 3. Small exophytic left mid renal cyst, measures smaller than the prior and appears simple. Ordered for complaints of new posterior headache that became worse throughout the day. Head CT 03/16/17: FINDINGS: Parenchyma: No intraparenchymal hemorrhage. No evidence of mass, midline shift, or CT findings of infarction. Crowley-white differentiation is distinct. Extraaxial Spaces: Normal for age. No subdural or epidural collections identified. Ventricles: Normal in size and position. Sinuses and Orbits: Imaged paranasal sinuses, orbits, and mastoids show no significant abnormality. Bones: No evidence of fracture or calvarial defect. IMPRESSION: 1.Negative nonenhanced head CT. Cervical spine CT 03/16/17: FINDINGS: Alignment: No subluxation or scoliosis. Bones: Negative for fracture. No destructive bony abnormality. Interspace Levels/Facets: Disk height is maintained. Facet joints appear normal in alignment. No bony central spinal canal stenosis. Musculature: Normal. No fatty atrophy. Other: The paravertebral and prevertebral soft tissues are normal. The lung apices are clear. IMPRESSION: 1.Negative cervical spine CT. Assessment/Plan - Problem List (1) Diarrhea with dehydration Impression: Patient reports over "39 bouts of diarrhea" since the time of admission. She recalls the exact number and has been keeping tally low on the dry erase board. She also complains of excoriated anus. General surgery consulted for further evaluation. Plan for EGD/colonoscopy later today-pending. Patient prescribed Golytely bowel prep and has been updated. We will continue antiemetics, and Metimucil, & lomotil (2) Headache in back of head Impression: New onset headache that has been worsening. History of migraines, but not usually located on posterior neck and head. PLAN: Spoke with radiologist who recommended CT scan without contrast of cervical spine and head. Results all negative. Continue IV pain medication. (3) Moderate nausea and vomiting Impression: Patient continues symptoms despite medical therapy and IVF. PLAN: Colonoscopy scheduled for 03/17/17 with General surgery. Continue with antiemetic. Lorazepam added for added relief. (4) Viral gastroenteritis Impression: Spleen is noted to be mildly enlarged per imaging reports. The nature of illness was abrupt onset with vomiting and diarrhea. PLAN: continue to control symptoms with medications, IVF and colonoscopy on 03/17. (5) History of iron deficiency anemia Impression: Iron studies checked and WNL except for sat% (low). Anemia suspected to become worse in light of acute illness PLAN: continue to monitor labs. (6) JOSUE (nonalcoholic steatohepatitis) Impression: Patient notes to have had this disease since childhood but denies ever seeing a Steam Flattener. PLAN: Will likely have a transfer to a higher level of care after planned colonoscopy procedure for appropriate follow up with recent radiology results of now a severe fatty liver. Greater than 60 minutes was spent for a comprehensive exam, patient counseling and new problems.
[2017-03-16] MEDS: POLYETHYLENE GLYCOL 3350 17 GM PACKET PO SCH (07:42)
[2017-03-16] MEDS ORDERED: MORPHINE 2 MG/ML SYRINGE IVP PRN (09:11)
[2017-03-16] MEDS: PSYLLIUM PACKET PO SCH (09:18)
[2017-03-16] MEDS: CHOLECALCIFEROL 1,000 UNIT TABLET PO SCH (09:19)
[2017-03-16] MEDS: FOLIC ACID 1 MG TABLET PO SCH (09:19)
[2017-03-16] MEDS: CHOLESTYRAMINE 4 GM PACKET PO SCH ×2 (09:22→21:26)
[2017-03-16] MEDS: LEVOTHYROXINE 100 MCG VIAL IVP SCH (10:54)
[2017-03-16] MEDS: SODIUM CHLORIDE FLUSH 0.9% 10 ML SYRINGE IVP PRN ×2 (10:55→17:58)
[2017-03-16] MEDS: SACCHAROMYCES BOULARDII 250 MG CAPSULE PO SCH ×2 (11:04→17:15)
[2017-03-16] MEDS: fentaNYL 12 MCG PATCH TOP SCH (11:04)
[2017-03-16] MEDS ORDERED: PEG 3350/NA SULF,BICARB,CL/KCL 4,000 ML BOTTLE PO SCH (12:00)
[2017-03-16] MEDS: LORazepam 2 MG/ML SYRINGE IVP PRN ×3 (14:57→23:59)
[2017-03-16 16:08] LABS: HCT - HEMATOCRIT 32.6 % (37.0-47.0); HGB - HEMOGLOBIN 11.1 g/dL (12.0-16.0); MEAN CORPUSCULAR HEMOGLOBIN 31.7 pg (27.0-31.0); MEAN CORPUSCULAR HGB CONC 34.1 g/dL (32.0-36.0); MEAN CORPUSCULAR VOLUME 92.8 fL (81.0-99.0); RED BLOOD COUNT 3.52 10^6/uL (4.20-5.40); RED CELL DISTRIBUTION WIDTH 12.8 % (12.0-15.0)
[2017-03-16 16:33] LABS: ALBUMIN/GLOBULIN RATIO 1.2 (1.0-2.2); AMYLASE 31 U/L (28-100); BILIRUBIN,TOTAL 0.4 mg/dL (0.2-1.0); BUN - BLOOD UREA NITROGEN < 5 mg/dL (6-20); CALCIUM 7.8 mg/dL (8.5-10.3); CARBON DIOXIDE - CO2 18 mmol/L (21-32); CHLORIDE 115 mmol/L (101-111); CHOLESTEROL 152 mg/dL; CREATININE 0.8 mg/dL (0.4-1.0); GFR - MDRD 82 (>89); GLUCOSE 98 mg/dL (70-100); HDL CHOLESTEROL 30 mg/dL; LDL CHOLESTEROL,DIRECT 111 mg/dL; POTASSIUM 3.6 mmol/L (3.5-5.0); SODIUM 139 mmol/L (135-145); TOTAL PROTEIN 6.5 g/dL (6.7-8.2)
--- NOTE | 2017-03-16 16:56 | CT Preliminary Report ---
Exam: CT HEAD W/O IMPRESSION: 1.Negative nonenhanced head CT. [facility] SITE ID: [id number]
--- NOTE | 2017-03-16 16:59 | CT Report ---
EXAM: CT HEAD EXAM DATE: 03/16/2017 04:35 PM. CLINICAL HISTORY: Headache COMPARISON: 11/12/2015. TECHNIQUE: Multiaxial CT images were obtained from the foramen magnum to the vertex. Reformats: Coron al. IV contrast: None. In accordance with CT protocol optimization, one or more of the following dose reduction techniques w ere utilized for this exam: automated exposure control, adjustment of mA and/or KV based on patient s ize, or use of iterative reconstructive technique. FINDINGS: Parenchyma: No intraparenchymal hemorrhage. No evidence of mass, midline shift, or CT findings of inf arction. Crowley-white differentiation is distinct. Extraaxial Spaces: Normal for age. No subdural or epidural collections identified. Ventricles: Normal in size and position. Sinuses and Orbits: Imaged paranasal sinuses, orbits, and mastoids show no significant abnormality. Bones: No evidence of fracture or calvarial defect. Other: None. IMPRESSION: 1.Negative nonenhanced head CT. [facility] Referring Provider Line: [phone] SITE ID: [id number]
--- NOTE | 2017-03-16 17:01 | CT Preliminary Report ---
Exam: CT CERVICAL SPINE W/O IMPRESSION: 1.Negative cervical spine CT. [facility] SITE ID: [id number]
--- NOTE | 2017-03-16 17:04 | CT Report ---
EXAM: CT CERVICAL SPINE WITHOUT CONTRAST DATE: 03/16/2017 04:34 PM. HISTORY: Worsening headache.. COMPARISONS: None. TECHNIQUE: Thin-section axial images were acquired of the cervical spine without contrast. Post-proce ssing: Coronal and sagittal reformats. Other: None. In accordance with CT protocol optimization, one or more of the following dose reduction techniques w ere utilized for this exam: automated exposure control, adjustment of mA and/or KV based on patient s ize, or use of iterative reconstructive technique. FINDINGS: Alignment: No subluxation or scoliosis. Bones: Negative for fracture. No destructive bony abnormality. Interspace Levels/Facets: Disk height is maintained. Facet joints appear normal in alignment. No bony central spinal canal sten osis. Musculature: Normal. No fatty atrophy. Other: The paravertebral and prevertebral soft tissues are normal. The lung apices are clear. IMPRESSION: 1.Negative cervical spine CT. [facility] Referring Provider Line: [phone] SITE ID: [id number]
[2017-03-16] MEDS ORDERED: MAGNESIUM CITRATE 296 ML BOTTLE PO SCH (17:11)
[2017-03-16] MEDS ORDERED: MAGNESIUM CITRATE 296 ML BOTTLE PO PRN (20:58)
[2017-03-17] MEDS: DEXTROSE 5%-0.9% NACL 1,000 ML IV SCH ×5 (00:58→19:36)
[2017-03-17] MEDS: LORazepam 2 MG/ML SYRINGE IVP PRN ×3 (04:36→17:42)
[2017-03-17 05:26] LABS: BASOPHILS % (AUTO) 0.5 %; EOSINOPHILS # (AUTO) 0.3 10^3/uL (0.0-0.7); EOSINOPHILS % (AUTO) 5.1 %; HCT - HEMATOCRIT 30.2 % (37.0-47.0); HGB - HEMOGLOBIN 10.5 g/dL (12.0-16.0); LYMPHOCYTES # (AUTO) 1.1 10^3/uL (1.5-3.5); LYMPHOCYTES % (AUTO) 20.7 %; MEAN CORPUSCULAR HGB CONC 34.8 g/dL (32.0-36.0); MEAN CORPUSCULAR VOLUME 91.8 fL (81.0-99.0); MEAN PLATELET VOLUME 6.6 fL (7.9-10.8); MONOCYTES # (AUTO) 0.4 10^3/uL (0.0-1.0); NEUTROPHILS # (AUTO) 3.5 10^3/uL (1.5-6.6); NEUTROPHILS % (AUTO) 65.7 %; RED BLOOD COUNT 3.29 10^6/uL (4.20-5.40); RED CELL DISTRIBUTION WIDTH 12.6 % (12.0-15.0); UNCORRECTED WHITE BLOOD COUNT 5.3 x10^3/uL; WHITE BLOOD COUNT 5.3 x10^3/uL (4.8-10.8)
[2017-03-17 05:42] LABS: ALBUMIN/GLOBULIN RATIO 1.4 (1.0-2.2); BILIRUBIN,TOTAL 0.4 mg/dL (0.2-1.0); BUN - BLOOD UREA NITROGEN < 5 mg/dL (6-20); CALCIUM 7.6 mg/dL (8.5-10.3); CARBON DIOXIDE - CO2 21 mmol/L (21-32); CHLORIDE 111 mmol/L (101-111); CREATININE 0.7 mg/dL (0.4-1.0); GFR - MDRD 95 (>89); GLUCOSE 115 mg/dL (70-100); POTASSIUM 3.1 mmol/L (3.5-5.0); SODIUM 140 mmol/L (135-145); TOTAL PROTEIN 5.7 g/dL (6.7-8.2)
[2017-03-17] MEDS: LEVOTHYROXINE 100 MCG VIAL IVP SCH (06:41)
[2017-03-17] MEDS: SODIUM CHLORIDE FLUSH 0.9% 10 ML SYRINGE IVP SCH ×4 (06:41→21:02)
[2017-03-17] MEDS: ONDANSETRON 4 MG/2 ML VIAL IVP PRN ×2 (08:22→14:31)
[2017-03-17] MEDS: CHOLECALCIFEROL 1,000 UNIT TABLET PO SCH (09:55)
[2017-03-17] MEDS: SACCHAROMYCES BOULARDII 250 MG CAPSULE PO SCH ×2 (09:55→17:42)
[2017-03-17] MEDS: CHOLESTYRAMINE 4 GM PACKET PO SCH ×2 (09:55→21:01)
[2017-03-17] MEDS: FOLIC ACID 1 MG TABLET PO SCH (09:55)
[2017-03-17] MEDS: PSYLLIUM PACKET PO SCH (09:56)
[2017-03-17] MEDS: HYDROmorphone 0.5 MG/0.5 ML SYRINGE IVP PRN ×3 (10:39→21:07)
[2017-03-17] MEDS ORDERED: BENZOCAINE/TETRACAINE/BUTAMBEN SPRAY 56 GM TOP ONE (11:45)
[2017-03-17] MEDS ORDERED: LIDO GARGLE 30 ML BOTTLE TOP ONE (11:45)
[2017-03-17] MEDS ORDERED: LACTATED RINGERS 1,000 ML IV ONE (11:46)
[2017-03-17] MEDS ORDERED: LIDOCAINE-MPF 2% 5 ML VIAL IM ONE (12:00)
[2017-03-17] MEDS ORDERED: PROPOFOL 200 MG/20 ML VIAL IVP ONE (12:00)
[2017-03-17] MEDS ORDERED: KETAMINE 500 MG/10 ML VIAL IVP ONE (12:00)
[2017-03-17] MEDS ORDERED: ONDANSETRON 4 MG/2 ML VIAL IVP ONE (12:00)
[2017-03-17] MEDS ORDERED: MIDAZOLAM 2 MG/2 ML VIAL IVP ONE (12:00)
[2017-03-17] MEDS ORDERED: BENZOCAINE/MENTHOL LOZENGE MM PRN (14:14)
--- NOTE | 2017-03-17 16:24 | PROVIDER PROGRESS NOTE ---
Subjective - Prog Note Date Prog Note Date: 03/17/17 Prog Note Time: 08:00 - Subjective Pt reports feeling: No change Subjective: Ana Maria has no new complaints, but complains of ongoing N/V/D that is still somewhat uncontrolled. She is looking forward to upcoming colonoscopy. She denies SOB, fever, chest pain, or new cough. Current Medications - Current Medications Current Medications: Active Medications Generic Name Dose Route Start Last Admin Trade Name Freq PRN Reason Stop Dose Admin Albuterol 2.5 mg 03/15/17 06:48 INH RTQ4H PRN Wheezing Cholecalciferol 1,000 unit 03/15/17 09:00 03/17/17 09:55 Vitamin D3 PO Not Given DAILY MU Cholestyramine/Sucrose 4 gm 03/15/17 07:00 03/17/17 09:55 Questran PO Not Given BID MU Diphenoxylate HCl/Atropine 1 tab 03/15/17 06:07 03/16/17 17:15 Lomotil PO 1 tab Q3H PRN Administration Diarrhea Fentanyl 1 patch 03/16/17 11:00 03/16/17 11:04 Duragesic TOP 1 patch Q3D MU Administration Folic Acid 0.5 mg 03/15/17 09:00 03/17/17 09:55 PO Not Given DAILY MU Hydromorphone HCl 0.5 mg 03/17/17 10:17 03/17/17 14:17 Dilaudid Inj Syringe IVP 0.5 mg Q2H PRN Administration PAIN Dextrose/Sodium Chloride 1,000 mls @ 175 mls/hr 03/16/17 12:56 03/17/17 13:35 D5ns IV 175 mls/hr .Q5H43M MU Administration Potassium Chloride 10 meq in 100 mls @ 100 mls/hr 03/17/17 16:00 Potassium Chloride IV 03/17/17 19:59 Q1H MU Ketorolac Tromethamine 15 mg 03/15/17 07:04 03/15/17 16:18 Toradol Inj IVP 03/20/17 07:03 15 mg Q6HR PRN Administration PAIN Levothyroxine Sodium 62 mcg 03/16/17 10:00 03/17/17 06:41 Synthroid Inj IVP 62 mcg QDAC MU Administration Lorazepam 0.5 mg 03/16/17 14:35 03/17/17 09:52 Ativan Inj IVP 0.5 mg Q2HR PRN Administration Anxiety Magnesium Citrate 296 ml 03/16/17 20:58 03/16/17 21:26 PO 03/17/17 20:57 296 ml ONCE PRN Administration Constipation Ondansetron HCl 4 mg 03/15/17 06:07 03/17/17 14:31 Zofran Inj IVP 4 mg Q6HR PRN Administration Nausea / Vomiting Ondansetron HCl 4 mg 03/15/17 06:07 Zofran Odt TL Q6HR PRN Nausea / Vomiting Psyllium Hydrophilic Mucilloid 1 packet 03/16/17 09:00 03/17/17 09:56 Metamucil PO Not Given DAILY MU Saccharomyces Boulardii 250 mg 03/16/17 11:00 03/17/17 09:55 Florastor PO Not Given BIDWM MU Sodium Chloride 10 ml 03/15/17 06:07 03/16/17 17:58 Normal Saline Flush 0.9% IVP 10 ml PRN PRN Administration NEEDED PER PROVIDER ORDERS Sodium Chloride 10 ml 03/15/17 14:00 03/17/17 14:31 Normal Saline Flush 0.9% IVP 10 ml Q8HR MU Administration Throat Lozenges 1 lozenge 03/17/17 14:14 03/17/17 14:26 Cepacol MM 1 lozenge Q2HR PRN Administration Mouth Sore Pain Tramadol HCl 50 mg 03/15/17 07:04 03/16/17 21:45 Ultram PO 50 mg Q4HR PRN Administration PAIN Albuterol [Ventolin Hfa] 2 puffs INH Q4H PRN 11/27/14 Biotin [Norberto Biotin] 10,000 mcg PO DAILY 11/27/14 Cholecalciferol (Vitamin D3) [Vitamin D3] 1,000 unit PO DAILY 11/27/14 Folic Acid 400 mcg PO DAILY 11/27/14 Garlic 1 each PO BID 11/27/14 Goldenseal/Echinacea Purpurea [Echinacea & Goldenseal Cap] 2 cap PO BID Levothyroxine [Synthroid] 125 mcg PO DAILY 11/27/14 Lisinopril 10 mg PO DAILY 11/27/14 Milk Thistle 150 mg PO DAILY 11/27/14 Multivitamin/Iron/Folic Acid [Multi-Day Plus Iron Tablet] 1 each PO DAILY [place]-3/Dha/Epa/Fish Oil [Fish Oil] 200 mg PO DAILY 11/27/14 Vitamin E 400 unit PO DAILY 11/27/14 metFORMIN [Glucophage] 500 mg PO TIDWM 11/27/14 Omeprazole [PriLOSEC] 20 mg PO DAILY 01/07/17 Objective - Vital Signs/Intake & Output Reviewed Vital Signs: Yes Vital Signs: Vital Signs x48h Temp Pulse Resp BP Pulse Ox 03/17/17 15:50 36.6 C 97 16 115/76 98 03/17/17 13:50 37.1 C 102 H 18 122/78 93 03/17/17 13:20 36.9 C 102 H 16 119/72 97 03/17/17 12:57 98 03/17/17 12:45 98 03/17/17 12:35 95 03/17/17 12:30 96 03/17/17 12:25 97 03/17/17 12:22 97 Intake & Output: Intake & Output 03/14/17 03/15/17 03/16/17 03/17/17 23:59 23:59 23:59 23:59 Intake Total 1000 Balance 1000 - Objective General Appearance: positive: Moderate distress Eyes Bilateral: positive: Normal inspection ENT: positive: ENT inspection nml, Pharynx nml, Dry mucous membranes, Other ( fullness in face increased from previous.) Neck: positive: Nml inspection, Thyroid nml, No JVD, Trachea midline Respiratory: positive: Chest non-tender, No respiratory distress, Breath sounds nml Cardiovascular: positive: Regular rate & rhythm, No murmur Peripheral Pulses: 2+ Radial (R), 2+ Radial (L), 2+ Dorsalis pedis (R), 2+ Dorsalis pedis (L) Abdomen: positive: Tenderness, Guarding, Hepatomegaly, Splenomegaly, Abnml bowel sounds (hyperactive.) Rectal: positive: Other (ongoing diarrhea.) Back: positive: Nml inspection Skin: positive: Color nml, No rash, Warm, Dry, Pallor Neurologic/Psychiatric: positive: Oriented x3, CN's nml (2-12), Motor nml, Sensation nml, Mood/affect nml - Lab Results Fish Bones: 03/17/17 05:17 03/18/17 06:19 - Diagnostic Imaging Diagnostic Imaging Results: positive: Final report reviewed Assessment/Plan - Problem List (1) Diarrhea with dehydration Impression: Impression: Patient reports over "over 40 bouts of diarrhea" since the time of admission. She recalls the exact number and has been keeping tally low on the dry erase board. She also complains of excoriated anus that is slowly improving. General surgery consulted for further evaluation. Plan for EGD/colonoscopy later today-that showed no evidence of esophageal varacies or polyps-grossly normal test both EGD and colonoscopy. Plan: [facility] GI department contacted via phone to evaluate for direct admission given patient's uncontrolled N/V/D. Recommend against octreotide injections as this is indicated for diarrhea that is chronic in nature. We will continue antiemetics, and Metimucil, & lomotil and monitor VS and electrolyte balance. (2) Headache in back of head Impression: New onset headache that has been worsening. History of migraines, but not usually located on posterior neck and head. PLAN: Spoke with radiologist who recommended CT scan without contrast of cervical spine and head. Results all negative. Continue IV pain medication that was changed from morphine to hydromorphone IV per patient request. (3) Moderate nausea and vomiting Impression: Patient continues symptoms despite medical therapy and IVF. PLAN: Colonoscopy scheduled for 03/17/17 with General surgery-that was grossly normal. Continue with antiemetic. Lorazepam added for added relief. (4) Viral gastroenteritis Impression: Spleen is noted to be mildly enlarged per imaging reports. The nature of illness was abrupt onset with vomiting and diarrhea. N/V/D is persistent so a call to [facility] Hepatology was made in hopes of a direct admit to manage symptoms and for a full work-up of acute illness. PLAN: continue to control symptoms with medications, IVF and colonoscopy on 03/17. Hepatology consulted via phone [facility] in [place], [place] who recommend follow up as outpatient with Dr. Winsome Navarro, Hepatology. Office phone # [phone] and fax # [phone], records will be forwarded and patient should follow up in the next 2 weeks for splenemegly and worsening fatty liver. (5) History of iron deficiency anemia Impression: Iron studies checked and WNL except for sat% (low). Anemia suspected to become worse in light of acute illness PLAN: continue to monitor labs. (6) JOSUE (nonalcoholic steatohepatitis) Impression: Patient notes to have had this disease since childhood but denies ever seeing a Data Modeling Specialist. Upon admission abdominal US notes now a severe fatty liver, and splenomegly. PLAN: Hepatology consulted via phone [facility] in [place], [place] who recommend follow up as outpatient (as LFTs remain normal), with Dr. Winsome Navarro, Hepatology. Office phone # [phone] and fax # [phone], records will be forwarded and patient should follow up in the next 2 weeks for splenemegly and worsening fatty liver. Greater than 30 minutes was spent for exam, patient counseling and new problems.
[2017-03-17 16:59] LABS: INR 1.2 (0.8-1.2); PT - PROTHROMBIN TIME 13.7 secs (9.9-12.6)
[2017-03-17] MEDS: POTASSIUM CHLOR 10 MEQ/100 ML 10 MEQ/100 ML BAG IV SCH ×4 (17:33→21:01)
--- NOTE | 2017-03-17 18:33 | HISTORY & PHYSICAL EXAMINATION ---
DATE OF ADMISSION: 03/17/2017 REQUESTING PROVIDER: Jessica Caraballo HISTORY OF PRESENT ILLNESS: I am called on consultation by Trevor Caraballo to evaluate this 36-year-old f emamarcela for persistent diarrhea. 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 The diarrhea is to the point where it is essentially continuous liquid stool. She has had nausea acco mpanying this, but there has been no emesis. The diarrhea is not bloody, but her rear-end is sore fro m wiping it so many times. She has also had some chills, but no fever. She is known to have JOSUE. She states she has had it since she was a child. She does not drink alcohol and she is not that morbidly obese to suggest that it is the primary source of her JOSUE. In other words, she has had it since she was a child, it is unlikely that caloric intake is the sole reason for her JOSUE. ALLERGIES: 1. TETANUS AND DIPHTHERIA TOXOIDS. 2. AMOXICILLIN. 3. HALOPERIDOL. 4. COMPAZINE. 5. KEFLEX. MEDICATIONS: 1. Albuterol inhaler 2 puffs every 4 hours as needed. 2. Biotin 10,000 mcg daily. 3. Vitamin D3 at 1000 units p.o. daily. 4. Folic acid 400 mcg p.o. daily. 5. Garlic 1 tablet b.i.d. 6. Echinacea goldenseal capsule, 2 capsules p.o. b.i.d.. 7. Levothyroxine 125 mcg p.o. daily. 8. Lisinopril 10 mg p.o. daily. 9. Milk thistle 150 mg p.o. daily. 10. Multivitamin with iron and folic acid 1 tablet p.o. daily. 11. [place] 3 fish oil 200 mg p.o. daily. 12. Vitamin E 400 units p.o. daily. 13. Glucose 1500 mg p.o. daily. 14. Prilosec 20 mg p.o. daily. PAST MEDICAL AND SURGICAL HISTORY: 1. Atrial fibrillation. 2. Asthma. 3. Dysautonomia or variant. 4. Hypothyroidism (Viki's). 5. Polycystic ovarian disease with morbid obesity. 5. Metabolic syndrome. 6. Insulin resistance. 7. JOSUE, and the patient's uncle as a result of cirrhosis from that. 8. Ovarian cysts. 9. Chronic vision loss. 10. Scoliosis. 11. Chronic iron deficiency anemia secondary to small bowel malabsorption and not GI blood loss despi te a history of small gastric ulcers. FAMILY HISTORY: Significant for a family member who has of cirrhosis secondary to JOSUE, otherwis e noncontributory. SOCIAL HISTORY: Tobacco, none. Alcohol, none. Recreational drug use, none. REVIEW OF SYSTEMS: Diffusely positive. PHYSICAL EXAMINATION: GENERAL: This patient was evaluated in room 2208 at [facility]'s observation unit. She is alert and oriented to person, place and time. She is in no acute distress. VITAL SIGNS: Please refer to nurses' notes. HEENT: She is normocephalic, atraumatic. Sclerae are noninjected, nonicteric. Mucous membranes are pi nk and slightly dry. NECK: Supple without mass or bruits. HEART: Regular rate and rhythm without rub, murmur or gallop. LUNGS: Clear to auscultation bilaterally. ABDOMEN: Soft, nontender, nondistended, with no peritoneal findings. I cannot appreciate any hepatome beena or splenomegaly. SKIN: Warm and dry. EXTREMITIES: Show no clubbing, cyanosis, or edema. GAIT: Not evaluated. LABORATORY: Abnormalities include a chloride of 114, carbon dioxide 20, anion gap of 4, GFR of 82, gl ucose 102, calcium 7.3, magnesium 1.4, alkaline phosphatase 3.8, total protein of 5.6. Abnormalities on Hematology including RBCs 3.32, hemoglobin of 10.6, hematocrit 30.9, MCH 31.9, MCV of 7.0, and lym phocyte count 1.2. CT scan of her abdomen and pelvis as well as ultrasound show worsening cirrhosis with the beginning o f splenomegaly. ASSESSMENT: The patient has a longstanding history of anemia, likely secondary to malabsorption. PLAN: I have been asked to perform an esophagogastroduodenoscopy and colonoscopy. The indications, pr ocedure, alternatives and possible complications including, but not limited to perforation requiring operative repair, bleeding with all of its possible complications, and were fully explained to the patient and all questions were answered. Verbal and written consent was obtained. I have asked he r to let us know if there is any way we can make her stay at [facility] more comfo rtable, to please let us know. Of great importance is the fact that she has worsening liver disease at such a young age. This spleno megaly is not profound, but it will be and by the time it occurs, she will have developed cirrhosis h erself. I explained to the patient that JOSUE is the #1 cause for liver transplant in this country at this point in time. She is definitely on her way towards consideration of a liver transplant if she c ontinues on this pathway. I have not seen anywhere that her liver storage disease, which I think is t he primary cause of her JOSUE has been fully worked up and the patient is unaware of it at this point in time. Following her EGD and colonoscopy if they are normal, as they are likely to be as they have been in the past, I would strongly recommend followup with a epitaxial reactor technician who is well versed on stora ge diseases of the liver. Forty-five minutes of [id number] time was spent with the patient. JOB #: [id number] EXT JOB #:[id number]
[2017-03-18] MEDS: LORazepam 2 MG/ML SYRINGE IVP PRN (00:20)
[2017-03-18] MEDS: SODIUM CHLORIDE FLUSH 0.9% 10 ML SYRINGE IVP SCH ×3 (00:21→17:40)
[2017-03-18] MEDS: HYDROmorphone 0.5 MG/0.5 ML SYRINGE IVP PRN ×5 (01:09→23:00)
[2017-03-18] MEDS: DEXTROSE 5%-0.9% NACL 1,000 ML IV SCH ×4 (01:10→23:00)
[2017-03-18] MEDS: traMADol 50 MG TABLET PO PRN ×2 (06:31→23:48)
[2017-03-18] MEDS: ONDANSETRON 4 MG/2 ML VIAL IVP PRN ×3 (06:31→17:38)
[2017-03-18] MEDS: LEVOTHYROXINE 100 MCG VIAL IVP SCH (06:32)
[2017-03-18 06:37] LABS: BUN - BLOOD UREA NITROGEN < 5 mg/dL (6-20); CALCIUM 7.5 mg/dL (8.5-10.3); CARBON DIOXIDE - CO2 22 mmol/L (21-32); CHLORIDE 112 mmol/L (101-111); CREATININE 0.7 mg/dL (0.4-1.0); GFR - MDRD 95 (>89); GLUCOSE 97 mg/dL (70-100); POTASSIUM 3.2 mmol/L (3.5-5.0); SODIUM 138 mmol/L (135-145)
[2017-03-18] MEDS ORDERED: LORazepam 0.5 MG TABLET PO PRN (09:05)
--- NOTE | 2017-03-18 09:08 | PROVIDER PROGRESS NOTE ---
Subjective - Prog Note Date Prog Note Date: 03/18/17 Prog Note Time: 09:06 - Subjective Pt reports feeling: Improved Subjective: Patient admits to getting some extra sleep overnight. She denies SOB, chest pain, less nausea, less frequent stools and no new cough. Current Medications - Current Medications Current Medications: Active Medications Generic Name Dose Route Start Last Admin Trade Name Freq PRN Reason Stop Dose Admin Albuterol 2.5 mg 03/15/17 06:48 INH RTQ4H PRN Wheezing Cholecalciferol 1,000 unit 03/15/17 09:00 03/17/17 09:55 Vitamin D3 PO Not Given DAILY [facility] Cholestyramine/Sucrose 4 gm 03/15/17 07:00 03/17/17 21:01 Questran PO Not Given BID MU Diphenoxylate HCl/Atropine 1 tab 03/15/17 06:07 03/16/17 17:15 Lomotil PO 1 tab Q3H PRN Administration Diarrhea Fentanyl 1 patch 03/16/17 11:00 03/16/17 11:04 Duragesic TOP 1 patch Q3D MU Administration Folic Acid 0.5 mg 03/15/17 09:00 03/17/17 09:55 PO Not Given DAILY MU Hydromorphone HCl 0.5 mg 03/17/17 10:17 03/18/17 08:11 Dilaudid Inj Syringe IVP 0.5 mg Q2H PRN Administration PAIN Potassium Chloride 40 meq/ 500 mls @ 125 mls/hr 03/18/17 09:02 Sodium Chloride IV 03/18/17 13:01 ONCE ONE Dextrose/Sodium Chloride 1,000 mls @ 100 mls/hr 03/18/17 09:04 D5ns IV .Q10H MU Ketorolac Tromethamine 15 mg 03/15/17 07:04 03/15/17 16:18 Toradol Inj IVP 03/20/17 07:03 15 mg Q6HR PRN Administration PAIN Levothyroxine Sodium 62 mcg 03/16/17 10:00 03/18/17 06:32 Synthroid Inj IVP 62 mcg QDAC MU Administration Lorazepam 0.5 mg 03/18/17 09:05 Ativan PO Q4HR PRN Anxiety Ondansetron HCl 4 mg 03/15/17 06:07 03/18/17 06:31 Zofran Inj IVP 4 mg Q6HR PRN Administration Nausea / Vomiting Ondansetron HCl 4 mg 03/15/17 06:07 Zofran Odt TL Q6HR PRN Nausea / Vomiting Psyllium Hydrophilic Mucilloid 1 packet 03/16/17 09:00 03/17/17 09:56 Metamucil PO Not Given DAILY MU Saccharomyces Boulardii 250 mg 03/16/17 11:00 03/17/17 17:42 Florastor PO 250 mg BIDWM MU Administration Sodium Chloride 10 ml 03/15/17 06:07 03/16/17 17:58 Normal Saline Flush 0.9% IVP 10 ml PRN PRN Administration NEEDED PER PROVIDER ORDERS Sodium Chloride 10 ml 03/15/17 14:00 03/18/17 00:21 Normal Saline Flush 0.9% IVP 10 ml Q8HR MU Administration Throat Lozenges 1 lozenge 03/17/17 14:14 03/17/17 14:26 Cepacol MM 1 lozenge Q2HR PRN Administration Mouth Sore Pain Tramadol HCl 50 mg 03/15/17 07:04 03/18/17 06:31 Ultram PO 50 mg Q4HR PRN Administration PAIN Albuterol [Ventolin Hfa] 2 puffs INH Q4H PRN 11/27/14 Biotin [Norberto Biotin] 10,000 mcg PO DAILY 11/27/14 Cholecalciferol (Vitamin D3) [Vitamin D3] 1,000 unit PO DAILY 11/27/14 Folic Acid 400 mcg PO DAILY 11/27/14 Garlic 1 each PO BID 11/27/14 Goldenseal/Echinacea Purpurea [Echinacea & Goldenseal Cap] 2 cap PO BID Levothyroxine [Synthroid] 125 mcg PO DAILY 11/27/14 Lisinopril 10 mg PO DAILY 11/27/14 Milk Thistle 150 mg PO DAILY 11/27/14 Multivitamin/Iron/Folic Acid [Multi-Day Plus Iron Tablet] 1 each PO DAILY [place]-3/Dha/Epa/Fish Oil [Fish Oil] 200 mg PO DAILY 11/27/14 Vitamin E 400 unit PO DAILY 11/27/14 metFORMIN [Glucophage] 500 mg PO TIDWM 11/27/14 Omeprazole [PriLOSEC] 20 mg PO DAILY 01/07/17 Objective - Vital Signs/Intake & Output Reviewed Vital Signs: Yes Vital Signs: Vital Signs x48h Temp Pulse Resp BP Pulse Ox 03/18/17 01:57 37.1 C 86 16 122/79 99 Intake & Output: Intake & Output 03/15/17 03/16/17 03/17/17 03/18/17 23:59 23:59 23:59 23:59 Intake Total 2391.667 1913.334 Output Total 600 700 Balance 5997.398 4526.334 - Objective General Appearance: positive: No acute distress Eyes Bilateral: positive: Normal inspection, PERRL ENT: positive: ENT inspection nml, Pharynx nml, Dry mucous membranes Neck: positive: Nml inspection, Thyroid nml, No JVD, Trachea midline Respiratory: positive: Chest non-tender, No respiratory distress, Breath sounds nml Cardiovascular: positive: Regular rate & rhythm, No murmur, No gallop Peripheral Pulses: 2+ Radial (R), 2+ Radial (L) Abdomen: positive: Tenderness, Hepatomegaly, Splenomegaly, Abnml bowel sounds ( hyperactive) Rectal: positive: Other (improved anal irritation due to frequent stools) Back: positive: Nml inspection Skin: positive: Color nml (cheeks and lips more milvia today.), No rash, Warm, Dry Extremities: positive: Non-tender, Full ROM, Nml appearance, No pedal edema Neurologic/Psychiatric: positive: Oriented x3, CN's nml (2-12), Motor nml, Sensation nml, Mood/affect nml - Lab Results Fish Bones: 03/17/17 05:17 03/18/17 06:19 Other Labs: Lab Results x24hrs 03/18/17 03/17/17 Range/Units 06:19 16:43 PT 13.7 H (9.9-12.6) secs INR 1.2 (0.8-1.2) Sodium 138 (135-145) mmol/L Potassium 3.2 L (3.5-5.0) mmol/L Chloride 112 H (101-111) mmol/L Carbon Dioxide 22 (21-32) mmol/L Anion Gap 4.0 L (6-13) BUN < 5 L (6-20) mg/dL Creatinine 0.7 (0.4-1.0) mg/dL Estimated GFR (MDRD) 95 (>89) Glucose 97 (70-100) mg/dL Calcium 7.5 L (8.5-10.3) mg/dL - Diagnostic Imaging Diagnostic Imaging Results: positive: Prelim report reviewed Assessment/Plan - Problem List (1) Diarrhea with dehydration Impression: Patient reports over "over 40 bouts of diarrhea" since the time of admission, now admits to remarkably less frequent and had only 2 since midnight. She also complains of mild irritation of anus that is slowly improving. General surgery consulted for further evaluation. EGD/colonoscopy on 03/17/17-that showed no evidence of esophageal varacies or polyps-grossly normal test both EGD and colonoscopy. Plan: [facility] GI department contacted via phone to evaluate for direct admission given patient's uncontrolled N/V/D. Recommend against octreotide injections as this is indicated for diarrhea that is chronic in nature. We will continue antiemetics, and Metimucil, & lomotil and monitor VS and electrolyte balance. (2) Headache in back of head Impression: New onset (on this admission) headache that has been ongoing. History of migraines, but not usually located on posterior neck and head. PLAN: CT scan without contrast of cervical spine and head completed on 03/16. Results all negative. Continue IV pain medication that was changed from morphine to hydromorphone IV per patient request with extra coverage using fentanyl patch 12mcg. (3) Moderate nausea and vomiting Impression: Patient continues symptoms despite medical therapy and IVF. Patient notes that her nausea is ongoing, but vomiting is resolved today with her last episode yesterday while prepping for colonoscopy. PLAN: Colonoscopy scheduled for 03/17/17 with General surgery-that was grossly normal. Continue with antiemetic. Lorazepam changed to oral today added for added relief. (4) Viral gastroenteritis Impression: Spleen is noted to be mildly enlarged per imaging reports. The nature of illness was abrupt onset with vomiting and diarrhea. N/V/D is persistent so a call to [facility] Hepatology was made in hopes of a direct admit to manage symptoms and for a full work-up of acute illness. PLAN: continue to control symptoms with medications, IVF and colonoscopy on 03/17. Hepatology consulted via phone [facility] in [place], [place] who recommend follow up as outpatient with Dr. Winsome Navarro, Hepatology. Office phone # [phone] and fax # [phone], records will be forwarded and patient should follow up in the next 2 weeks for splenemegly and worsening fatty liver. (5) History of iron deficiency anemia Impression: Iron studies checked and WNL except for sat% (low). Anemia suspected to become worse in light of acute illness PLAN: continue to monitor labs. (6) JOSUE (nonalcoholic steatohepatitis) Impression: Patient notes to have had this disease since childhood but denies ever seeing a Filemaker Developer. Upon admission abdominal US notes now a severe fatty liver, and splenomegly. PLAN: Hepatology consulted via phone [facility] in [place], [place] who recommend follow up as outpatient (as LFTs remain normal), with Dr. Winsome Navarro, Hepatology. Office phone # [phone] and fax # [phone], records will be forwarded and patient should follow up in the next 2 weeks for splenemegly and worsening fatty liver. Less than 30 minutes was spent for exam, patient counseling and new problems. (7) Hypokalemia Impression: Potassium levels declining from 3.8 to 3.1. Plan: 40mEq IV ordered and we will continue to monitor labs and work to slow diarrhea episodes.
[2017-03-18] MEDS ORDERED: POTASSIUM CHLORIDE INJ 40 MEQ in SODIUM CHLORIDE 0.9% 480 ML IV SCH (09:30)
[2017-03-18] MEDS: CHOLECALCIFEROL 1,000 UNIT TABLET PO SCH (10:12)
[2017-03-18] MEDS: SACCHAROMYCES BOULARDII 250 MG CAPSULE PO SCH ×2 (10:12→18:19)
[2017-03-18] MEDS: PSYLLIUM PACKET PO SCH (10:13)
[2017-03-18] MEDS: FOLIC ACID 1 MG TABLET PO SCH (10:13)
[2017-03-18] MEDS: CHOLESTYRAMINE 4 GM PACKET PO SCH ×2 (10:13→20:30)
[2017-03-18] MEDS: SODIUM CHLORIDE FLUSH 0.9% 10 ML SYRINGE IVP PRN ×2 (18:20→23:00)
[2017-03-19] MEDS: HYDROmorphone 0.5 MG/0.5 ML SYRINGE IVP PRN (06:55)
[2017-03-19] MEDS: LEVOTHYROXINE 100 MCG VIAL IVP SCH (06:55)
[2017-03-19] MEDS: SODIUM CHLORIDE FLUSH 0.9% 10 ML SYRINGE IVP SCH ×2 (06:55→07:28)
[2017-03-19] MEDS: PSYLLIUM PACKET PO SCH (07:28)
[2017-03-19] MEDS: CHOLESTYRAMINE 4 GM PACKET PO SCH (07:28)
[2017-03-19] MEDS: SACCHAROMYCES BOULARDII 250 MG CAPSULE PO SCH ×2 (08:36→17:30)
[2017-03-19] MEDS: FOLIC ACID 1 MG TABLET PO SCH (08:36)
[2017-03-19] MEDS: CHOLECALCIFEROL 1,000 UNIT TABLET PO SCH (08:36)
[2017-03-19] MEDS: fentaNYL 12 MCG PATCH TOP SCH (11:55)
--- NOTE | 2017-03-19 12:30 | Ultrasound Preliminary Report ---
Exam: US RETROPERITONEAL IMPRESSION: 1. Normal renal echotexture. 2. Mild right renal hydronephrosis, unchanged. 3. Lower pole left renal 1.8 cm cyst. 4. Small post void urinary bladder volume residual. [facility] SITE ID: [id number]
--- NOTE | 2017-03-19 12:32 | Ultrasound Report ---
EXAM: RENAL ULTRASOUND EXAM DATE: 03/19/2017 10:53 AM. CLINICAL HISTORY: Prior hydronephrosis. Evaluate. COMPARISON: 03/15/2017. 12/21/2014. TECHNIQUE: Real-time scanning was performed with static images obtained. FINDINGS: Right Kidney: 13.1 x 5.7 x 5.8 cm. Normal echotexture. Mild right hydronephrosis. Findings are stable . No renal calculi. No renal masses. Left Kidney: 12.7 x 5.5 x 5.4 cm. Normal echotexture. No hydronephrosis. Exophytic mid lateral renal cyst is again seen measuring 1.7 x 1.5 x 1.8 cm. Bladder: Bilateral jets seen. The prevoid bladder volume was 201 cc. The postvoid bladder volume was 19.5 cc. IMPRESSION: 1. Normal renal echotexture. 2. Mild right renal hydronephrosis, unchanged. 3. Lower pole left renal 1.8 cm cyst. 4. Small post void urinary bladder volume residual. [facility] Referring Provider Line: [phone] SITE ID: [id number]
[2017-03-19] MEDS ORDERED: CIPROFLOXACIN 250 MG TABLET PO SCH (13:00)
--- NOTE | 2017-03-19 13:26 | PROVIDER PROGRESS NOTE ---
Subjective - Prog Note Date Prog Note Date: 03/19/17 Prog Note Time: 13:22 - Subjective Pt reports feeling: Improved Subjective: Patient is encouraged to go home, but complains that she cannot tolerate food yet today. She denies SOB, chest pain, vomiting or new cough. Will re-assess for discharge later today. Upon re-evaluation, patient notes to have ongoing headaches and not eating regular meals yet. Plan for discharge in AM. Current Medications - Current Medications Current Medications: Active Medications Generic Name Dose Route Start Last Admin Trade Name Freq PRN Reason Stop Dose Admin Albuterol 2.5 mg 03/15/17 06:48 INH RTQ4H PRN Wheezing Cholecalciferol 1,000 unit 03/15/17 09:00 03/19/17 08:36 Vitamin D3 PO 1,000 unit DAILY MU Administration Ciprofloxacin 500 mg 03/19/17 13:00 Cipro PO BID MU Diphenoxylate HCl/Atropine 1 tab 03/15/17 06:07 03/16/17 17:15 Lomotil PO 1 tab Q3H PRN Administration Diarrhea Fentanyl 1 patch 03/16/17 11:00 03/19/17 11:55 Duragesic TOP 1 patch Q3D MU Administration Folic Acid 0.5 mg 03/15/17 09:00 03/19/17 08:36 PO 0.5 mg DAILY MU Administration Lorazepam 0.5 mg 03/18/17 09:05 03/18/17 10:12 Ativan PO 0.5 mg Q4HR PRN Administration Anxiety Ondansetron HCl 4 mg 03/15/17 06:07 03/19/17 12:19 Zofran Odt TL 4 mg Q6HR PRN Administration Nausea / Vomiting Saccharomyces Boulardii 250 mg 03/16/17 11:00 03/19/17 08:36 Florastor PO 250 mg BIDWM MU Administration Throat Lozenges 1 lozenge 03/17/17 14:14 03/17/17 14:26 Cepacol MM 1 lozenge Q2HR PRN Administration Mouth Sore Pain Tramadol HCl 50 mg 03/15/17 07:04 03/18/17 23:48 Ultram PO 50 mg Q4HR PRN Administration PAIN Albuterol [Ventolin Hfa] 2 puffs INH Q4H PRN 11/27/14 Biotin [Norberto Biotin] 10,000 mcg PO DAILY 11/27/14 Cholecalciferol (Vitamin D3) [Vitamin D3] 1,000 unit PO DAILY 11/27/14 Folic Acid 400 mcg PO DAILY 11/27/14 Garlic 1 each PO BID 11/27/14 Goldenseal/Echinacea Purpurea [Echinacea & Goldenseal Cap] 2 cap PO BID Levothyroxine [Synthroid] 125 mcg PO DAILY 11/27/14 Lisinopril 10 mg PO DAILY 11/27/14 Milk Thistle 150 mg PO DAILY 11/27/14 Multivitamin/Iron/Folic Acid [Multi-Day Plus Iron Tablet] 1 each PO DAILY [place]-3/Dha/Epa/Fish Oil [Fish Oil] 200 mg PO DAILY 11/27/14 Vitamin E 400 unit PO DAILY 11/27/14 metFORMIN [Glucophage] 500 mg PO TIDWM 11/27/14 Omeprazole [PriLOSEC] 20 mg PO DAILY 01/07/17 Objective - Vital Signs/Intake & Output Reviewed Vital Signs: Yes Vital Signs: Vital Signs x48h Temp Pulse Resp BP Pulse Ox 03/19/17 12:28 65 16 127/78 99 03/19/17 09:00 36.9 C 85 14 112/74 98 Intake & Output: Intake & Output 03/16/17 03/17/17 03/18/17 03/19/17 23:59 23:59 23:59 23:59 Intake Total 2391.667 4988.334 2043.333 Output Total 600 1325 2850 Balance 4921.310 7519.334 -806.667 - Objective General Appearance: positive: No acute distress, Alert Eyes Bilateral: positive: Normal inspection, PERRL, EOMI ENT: positive: ENT inspection nml, Pharynx nml, No signs of dehydration Neck: positive: Nml inspection, Thyroid nml, No JVD, Trachea midline Respiratory: positive: Chest non-tender, No respiratory distress, Breath sounds nml Cardiovascular: positive: Regular rate & rhythm, No murmur, No gallop Abdomen: positive: Non-tender, Nml bowel sounds, Hepatomegaly, Splenomegaly Back: positive: Nml inspection Skin: positive: Color nml, No rash, Warm, Dry Extremities: positive: Non-tender, Full ROM, Nml appearance, No pedal edema Neurologic/Psychiatric: positive: Oriented x3, CN's nml (2-12), Motor nml, Sensation nml, Mood/affect nml - Lab Results Fish Bones: 03/19/17 14:07 03/19/17 14:07 Other Labs: Lab Results x24hrs 03/17/17 03/17/17 03/17/17 Range/Units 16:43 16:43 16:43 Hep Bs Antigen NON-REACTIVE (NON-REACTIVE) Hep Bs Immunity Index <5 L (> OR = 10) mIU/mL Hepatitis C Antibody NON-REACTIVE (NON-REACTIVE) Hep C Ab Signal/Cutoff 0.00 (<1.00) - Diagnostic Imaging Diagnostic Imaging Results: positive: Prelim report reviewed Diagnostic Imaging Comments: Retroperitoneal US: IMPRESSION: 1. Normal renal echotexture. 2. Mild right renal hydronephrosis, unchanged. 3. Lower pole left renal 1.8 cm cyst. 4. Small post void urinary bladder volume residual Assessment/Plan - Problem List (1) Diarrhea with dehydration Impression: Patient is noted to have minimal stools today. Plan: Patient reports over "over 40 bouts of diarrhea" since the time of admission, now admits to remarkably less frequent and had only 2 since midnight. She also complains of mild irritation of anus that is slowly improving. General surgery consulted for further evaluation. EGD/colonoscopy on 03/17/17-that showed no evidence of esophageal varacies or polyps-grossly normal test both EGD and colonoscopy. Plan: (2) Headache in back of head Impression: New onset (on this admission) headache that has been ongoing. History of migraines, but not usually located on posterior neck and head. PLAN: CT scan without contrast of cervical spine and head completed on 03/16. Results all negative. IV pain medication changed to PO today in preparation for discharge. Will discontinue Fentanyl patch before discharge. (3) Moderate nausea and vomiting Impression: Patient continues symptoms despite medical therapy and IVF. Patient notes that her nausea is ongoing, but vomiting was resolved while prepping for colonoscopy. PLAN: Colonoscopy completed on 03/17/17 with General surgery-that was grossly normal. Continue with antiemetic. Lorazepam changed to oral today added for added relief. (4) Viral gastroenteritis Impression: Spleen is noted to be mildly enlarged per imaging reports. The nature of illness was abrupt onset with vomiting and diarrhea. N/V/D is persistent so a call to [facility] Hepatology was made in hopes of a direct admit to manage symptoms and for a full work-up of acute illness. PLAN: continue to control symptoms with medications, IVF and colonoscopy on 03/17. Hepatology consulted via phone [facility] in [place], [place] who recommend follow up as outpatient with Dr. Winsome Navarro, Hepatology. Office phone # [phone] and fax # [phone], records will be forwarded and patient should follow up on 03/24, for splenemegly and worsening fatty liver. (5) History of iron deficiency anemia Impression: Iron studies checked and WNL except for sat% (low). Anemia suspected to become worse in light of acute illness, and now resolved. PLAN: continue to monitor labs. (6) JOSUE (nonalcoholic steatohepatitis) Impression: Patient notes to have had this disease since childhood (age 14 years) but denies ever seeing a Director Of Dance due to financial contraints and her mother's dis-trust of the healthcare system. Upon admission abdominal US notes now a severe fatty liver, and splenomegly. PLAN: Hepatology consulted via phone [facility] in [place], [place] who recommend follow up as outpatient (as LFTs remain normal), with Dr. Winsome Navarro, Hepatology. Follow up with VANDANA Asher on 03/24/17 at the Hepatology clinic. (7) Hypokalemia Impression: Potassium levels declined from 3.8 to 3.1, now normal greater than 3.5. Plan: 40mEq IV ordered and we will continue to monitor labs.
[2017-03-19] MEDS ORDERED: HYDROmorphone 2 MG TABLET PO PRN (13:29)
[2017-03-19] MEDS ORDERED: CIPROFLOXACIN 400 MG/200 ML 200 ML IV SCH (14:00)
[2017-03-19] MEDS ORDERED: SODIUM CHLORIDE 0.9% 250 ML IV ONE (14:01)
[2017-03-19] MEDS ORDERED: SODIUM CHLORIDE FLUSH 0.9% 10 ML SYRINGE IVP ONE (14:01)
[2017-03-19 14:12] LABS: HCT - HEMATOCRIT 29.7 % (37.0-47.0); HGB - HEMOGLOBIN 10.4 g/dL (12.0-16.0); MEAN CORPUSCULAR HEMOGLOBIN 31.8 pg (27.0-31.0); MEAN CORPUSCULAR HGB CONC 35.1 g/dL (32.0-36.0); MEAN CORPUSCULAR VOLUME 90.4 fL (81.0-99.0); MEAN PLATELET VOLUME 6.7 fL (7.9-10.8); RED BLOOD COUNT 3.28 10^6/uL (4.20-5.40); RED CELL DISTRIBUTION WIDTH 12.8 % (12.0-15.0); WHITE BLOOD COUNT 6.5 x10^3/uL (4.8-10.8)
[2017-03-19 14:25] LABS: ALBUMIN/GLOBULIN RATIO 1.3 (1.0-2.2); BILIRUBIN,TOTAL 0.4 mg/dL (0.2-1.0); CALCIUM 8.4 mg/dL (8.5-10.3); CREATININE 0.8 mg/dL (0.4-1.0); POTASSIUM 3.5 mmol/L (3.5-5.0); TOTAL PROTEIN 5.8 g/dL (6.7-8.2)
[2017-03-19] MEDS ORDERED: diphenhydrAMINE 25 MG CAPSULE PO PRN (15:12)
[2017-03-19] MEDS: traMADol 50 MG TABLET PO PRN (17:30)
[2017-03-19] MEDS ORDERED: KETOROLAC 15 MG/ML VIAL IVP SCH (21:21)
[2017-03-19] MEDS: NITROFURANTOIN MACRO 100 MG CAPSULE PO SCH (21:56)
[2017-03-19] MEDS: SUCRALFATE 1 GM/10 ML UDC PO SCH (21:56)
[2017-03-20] MEDS: SUCRALFATE 1 GM/10 ML UDC PO SCH ×2 (06:36→13:33)
[2017-03-20] MEDS: traMADol 50 MG TABLET PO PRN ×2 (06:40→13:33)
[2017-03-20] MEDS ORDERED: LEVOTHYROXINE 125 MCG TABLET PO SCH (07:00)
[2017-03-20 10:03] LABS: HEPATITIS C VIRAL RNA GENOTYPE NOT DETECTED
[2017-03-20] MEDS: FOLIC ACID 1 MG TABLET PO SCH (10:17)
[2017-03-20] MEDS: NITROFURANTOIN MACRO 100 MG CAPSULE PO SCH (10:19)
[2017-03-20] MEDS: SACCHAROMYCES BOULARDII 250 MG CAPSULE PO SCH (10:19)
[2017-03-20] MEDS: CHOLECALCIFEROL 1,000 UNIT TABLET PO SCH (10:19)
[2017-03-20] MEDS ORDERED: HYDROcod/ACETAM 5/325 MG TABLET PO PRN (10:55)
--- NOTE | 2017-03-20 11:00 | Discharge Plan ---
Discharge Plan Disposition: 01 Home, Self Care Diet: Regular Activity Restrictions: No Restrictions Shower Restrictions: No Driving Restrictions: No Weight Bearing: Full Weight Additional Instructions or Follow Up instructions: Please see PCP in the next few days as a follow up to this hospital stay. Please see VANDANA Asher, Hepatology on 03/24/17 @ 9:15am. Address is [address] [place] [address]. Records will be faxed by me before your appointment. Please take medications as prescribed and resume all home medications. Please rest at home and refrain from school/work responsibilities until seen by PCP for further recommendations, Work/school note attached. No Smoking: If you smoke, Please STOP! Call for help. Follow-up with: Shaunna John PA-C [Primary Care Provider] -
--- NOTE | 2017-03-20 11:00 | DISCHARGE SUMMARY ---
Discharge Summary Admit Date: 03/17/17 Discharge Date: 03/20/17 Discharging Provider: VANDANA King Primary Care Provider: Jose Ledesma Condition at Discharge: Good Discharge Disposition: 01 Home, Self Care - DIAGNOSES Admission Diagnoses: Viral gastroenteritis History of iron deficiency anemia Diarrhea with dehydration History of JOSUE Discharge Diagnoses with Status of Each Condition: Problem List (1) Viral gastroenteritis Impression: Spleen is noted to be mildly enlarged per imaging reports. The nature of illness was abrupt onset with vomiting and diarrhea. N/V/D is persistent so a call to [facility] Hepatology was made in hopes of a direct admit to manage symptoms and for a full work-up of acute illness. PLAN: Continued to control symptoms with medications, IVF and colonoscopy on 03/17/17. Hepatology consulted via phone [facility] in [place], [place] who recommend follow up as outpatient with Dr. Winsome Navarro, Hepatology. Office phone # [phone] and fax # [phone], records will be forwarded and patient should follow up on 03/24/17 for splenemegly and worsening fatty liver (VANDANA Asher-Hepatology). A hand-written prescription of [place] 5/325mg PO ( quantity #10) to take one tablet every 4 hours, PRN, was given per patient request due to residual mid epi-gastric pain that was unrelieved with other means of pain management. She is to follow up in the next few days with PCP. (2) Diarrhea with dehydration-RESOLVED Impression: Patient reports over "over 40 bouts of diarrhea" since the time of admission, that gradually decreased and subsided by the time of discharge home. She also complained of mild irritation of anus that is now resolved. General surgery consulted for further evaluation. EGD/colonoscopy on 03/17/17-that showed no evidence of esophageal varacies or polyps-grossly normal test both EGD and colonoscopy. Plan: [facility] GI department contacted via phone to evaluate for direct admission given patient's uncontrolled N/V/D. Recommend against octreotide injections as this is indicated for diarrhea that is chronic in nature. Continue antiemetics, and Metimucil, & lomotil and monitor VS and electrolyte balance. (3) Headache in back of head-RESOLVED Impression: New onset (on this admission) headache that has been ongoing. History of migraines, but not usually located on posterior neck and head. PLAN: CT scan without contrast of cervical spine and head completed on 03/16. Results all negative. Continue IV pain medication that was changed from morphine to hydromorphone IV per patient request with extra coverage using fentanyl patch 12mcg, which was discontinued the evening before discharge and may have contributed to headaches since BOONE are gone at the time of discharge. (4) Moderate nausea and vomiting-RESOLVED Impression: Patient continued symptoms despite medical therapy and IVF early in her hospitalization. Patient notes that her nausea is ongoing, but vomiting is resolved with her last episode a few days ago while prepping for colonoscopy. PLAN: Colonoscopy completed on 03/17/17 with General surgery-that was grossly normal. Continue with antiemetics. Lorazepam changed to oral for added relief and not continued for discharge home. (5) History of iron deficiency anemia Impression: Iron studies checked and WNL except for sat% (low). Anemia suspected to become worse in light of acute illness, but back to base line at the time of discharge. PLAN: Continued to monitor labs. (6) JOSUE (nonalcoholic steatohepatitis) Impression: Patient notes to have had this disease since childhood (age 14 years) but denies ever seeing a Customs Director due to Mother's distrust in healthcare system and financial barriers at the time. Upon admission abdominal US notes now a severe fatty liver (which is worse than prior), and splenomegly. PLAN: Hepatology consulted via phone [facility] in [place], [place] who recommend follow up as outpatient (as LFTs remain normal), with Dr. Winsome Navarro, Hepatology. Follow up scheduled before discharge. Appointment information forwarded to patient. (7) Hypokalemia-RESOLVED Impression: Potassium levels declined from 3.8 to 3.1. Plan: 40mEq IV ordered and we continued to monitor labs and replace as needed. - HPI History of Present Illness: HPI per Dr. 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 She said a week ago her youngest child came home with diarrhea and it was a self resolved illness of only about 12 hours duration. About 2 days after that she came down with diarrhea. She is having diarrhea too numerous to count times. She has no appetite. A salty metallic taste in her mouth. Nausea but no emesis. While the diarrhea is not bloody, her bottom is become quite irritated and she has bright red blood when she wipes now and she thinks she has fissures or hemorrhoids. Her anus is become very tender. She has had some chills but no fever. No body rashes. The diarrhea is watery and clear. Mild generalized abdominal pain. In the emergency room she was evaluated by Dr. Blackmon and is normotensive, afebrile. White cell count is 13,000. Potassium creatinine are normal. Chloride is normal. Urinalysis is normal. Stool is negative for C. difficile toxin. She is received 2 L of normal saline, a dose of Lomotil, Zofran, and a single dose of morphine. In spite of this she is still gotten up close to a dozen times to have frequent small watery bowel movements. Dr. Blackmon would like her placed under observation for continued hydration and continued use of antimotility agents to get her diarrhea to slow down. - CONSULTS | PROCEDURES Consultations: General surgery Procedures: Colonoscopy EGD - HOSPITAL COURSE Hospital Course: Ana Maria was acutely ill from likely viral gastroenteritis which was evidenced by acute onset of illness with uncontrolled N/V/D and anorexia. After IVF, images, testing, colonoscopy, EGD and regular nursing care all symptoms resolved and patient was discharged home via private car with and 4 children. - ALLERGIES Allergies/Adverse Reactions: Allergies Allergy/AdvReac Type Severity Reaction Status Date / Time tetanus and diphtheria Allergy Anaphylaxis Verified 03/15/17 03:10 toxoids [tetanus & diphtheria toxoids] amoxicillin AdvReac Unknown Rash Verified 03/15/17 03:10 haloperidol [From Haldol] AdvReac Unknown Hallucinati Verified 03/15/17 03:10 ons haloperidol lactate * AdvReac Unknown Hallucinati Verified 03/15/17 03:10 [From Haldol] ons prochlorperazine edisylate * AdvReac Unknown Hallucinati Verified 03/15/17 03:10 [From Compazine] ons prochlorperazine maleate * AdvReac Unknown Hallucinati Verified 03/15/17 03:10 [From Compazine] ons cephalexin monohydrate * AdvReac Edema Verified 03/15/17 03:10 [From Keflex] - MEDICATIONS Home Medications: Ambulatory Orders Medication Instructions Recorded Confirmed Albuterol [Ventolin Hfa] 2 puffs INH Q4H PRN 11/27/14 03/15/17 Biotin [Norberto Biotin] 10,000 mcg PO DAILY 11/27/14 03/15/17 Cholecalciferol (Vitamin D3) 1,000 unit PO DAILY 11/27/14 03/15/17 [Vitamin D3] Folic Acid 400 mcg PO DAILY 11/27/14 03/15/17 Garlic 1 each PO BID 11/27/14 03/15/17 Goldenseal/Echinacea Purpurea 2 cap PO BID 11/27/14 03/15/17 [Echinacea & Goldenseal Cap] Levothyroxine [Synthroid] 125 mcg PO DAILY 11/27/14 03/15/17 Lisinopril 10 mg PO DAILY 11/27/14 03/15/17 Milk Thistle 150 mg PO DAILY 11/27/14 03/15/17 Multivitamin/Iron/Folic Acid 1 each PO DAILY 11/27/14 03/15/17 [Multi-Day Plus Iron Tablet] [place]-3/Dha/Epa/Fish Oil [Fish Oil] 200 mg PO DAILY 11/27/14 03/15/17 Vitamin E 400 unit PO DAILY 11/27/14 03/15/17 metFORMIN [Glucophage] 500 mg PO TIDWM 11/27/14 03/15/17 Omeprazole [PriLOSEC] 20 mg PO DAILY 01/07/17 03/15/17 - PHYSICAL EXAM AT DISCHARGE General Appearance: positive: No acute distress, Alert Eyes Bilateral: positive: Normal inspection, PERRL, EOMI ENT: positive: ENT inspection nml, Pharynx nml, No signs of dehydration Neck: positive: Nml inspection, Thyroid nml, No JVD, Trachea midline Respiratory: positive: Chest non-tender, No respiratory distress, Breath sounds nml Cardiovascular: positive: Regular rate & rhythm, No murmur, No gallop Peripheral Pulses: positive: 2+ Abdomen: positive: Non-tender, Nml bowel sounds, Hepatomegaly, Splenomegaly Back: positive: Nml inspection Skin: positive: Color nml, No rash, Warm, Dry Extremities: positive: Non-tender, Full ROM, Nml appearance Neurologic/Psychiatric: positive: Oriented x3, CN's nml (2-12), Motor nml, Sensation nml, Mood/affect nml - LABS Result Diagrams: 03/19/17 14:07 03/19/17 14:07 - DIAGNOSTIC IMAGING Diagnostic Imaging Results: Final report reviewed Diagnostic Imaging Results Comments: Abdominal US on admit: FINDINGS: Liver: Severe fatty liver. Liver length 18.8 cm. Main portal vein flow: Hepatopetal. Gallbladder: Surgically absent. Biliary System: Common duct measures 6.6 mm. No intrahepatic or extrahepatic ductal dilatation. Pancreas: Visualized portion is unremarkable. Limited visualization. Kidneys: Right: 11.9 cm longitudinally. Mild hydronephrosis. No renal calculi seen. Renal cortical thickness and echotexture appear within normal limits. There is limited visualization due to limited penetration. Left: 11.8 cm longitudinally. Exophytic left mid renal cyst measuring 1.2 x 1.3 x 1.2 cm, measures smaller than the prior. No complex renal cystic features seen. Renal cortical thickness and echotexture appear within normal limits. No hydronephrosis. No renal calculi seen. Spleen: 15.2 cm. splenomegaly. Aorta and Inferior Vena Cava: The visualized portions appear unremarkable. IMPRESSION: 1. Severe fatty liver, worse than the prior. 2. New mild right hydronephrosis. 3. Small exophytic left mid renal cyst, measures smaller than the prior and appears simple. Abdomen/Pelvis CT on ADMIT: FINDINGS: Lung Bases: Unremarkable. Liver: No focal liver lesion or intrahepatic biliary dilatation. Gallbladder/Bile Ducts: Surgically absent. Spleen: Normal. Pancreas: Normal. Adrenal Glands: Normal. Kidneys: Normal. No masses or hydronephrosis. Peritoneal Cavity/Bowel: There is a small fat-containing umbilical hernia. The bowel is normal in caliber without transition zone. No abnormal fluid or gas collection. The appendix is well visualized and normal. Pelvic Organs: Uterus is anteverted. Urinary bladder is unremarkable. Vasculature: No aneurysms or other significant abnormality. Bones: No significant abnormality. IMPRESSION: 1. No localizing acute inflammatory process. 2. Small fat-containing umbilical hernia. Head CT after c/o OBONE 03/16/17: FINDINGS: Parenchyma: No intraparenchymal hemorrhage. No evidence of mass, midline shift, or CT findings of infarction. Crowley-white differentiation is distinct. Extraaxial Spaces: Normal for age. No subdural or epidural collections identified. Ventricles: Normal in size and position. Sinuses and Orbits: Imaged paranasal sinuses, orbits, and mastoids show no significant abnormality. Bones: No evidence of fracture or calvarial defect. IMPRESSION: 1.Negative nonenhanced head CT. Cervical spine CT after c/o BOONE 03/16/17: FINDINGS: Alignment: No subluxation or scoliosis. Bones: Negative for fracture. No destructive bony abnormality. Interspace Levels/Facets: Disk height is maintained. Facet joints appear normal in alignment. No bony central spinal canal stenosis. Musculature: Normal. No fatty atrophy. Other: The paravertebral and prevertebral soft tissues are normal. The lung apices are clear. IMPRESSION: 1.Negative cervical spine CT. Retriperitineal US for prior hydronephrosis on 03/19/17: FINDINGS: Right Kidney: 13.1 x 5.7 x 5.8 cm. Normal echotexture. Mild right hydronephrosis. Findings are stable. No renal calculi. No renal masses. Left Kidney: 12.7 x 5.5 x 5.4 cm. Normal echotexture. No hydronephrosis. Exophytic mid lateral renal cyst is again seen measuring 1.7 x 1.5 x 1.8 cm. Bladder: Bilateral jets seen. The prevoid bladder volume was 201 cc. The postvoid bladder volume was 19.5 cc. IMPRESSION: 1. Normal renal echotexture. 2. Mild right renal hydronephrosis, unchanged. 3. Lower pole left renal 1.8 cm cyst. 4. Small post void urinary bladder volume residual. - FOLLOW UP Follow Up: Please see PCP in the next few days as a follow up to this hospital stay. Please see VANDANA Asher, Hepatology on 03/24/17 @ 9:15am. Address is [address] [place] [address]. Records will be faxed by me before your appointment. Please take medications as prescribed and resume all home medications. Please rest at home and refrain from school/work responsibilities until seen by PCP for further recommendations, Work/school note attached. - TIME SPENT Time Spent in Discharge (Minutes): 90
[2017-03-20] MEDS ORDERED: ALBUTEROL INH PRN (11:16)
[2017-03-20 12:56] VITALS: BP 121/74
[2017-03-20] MEDS ORDERED: metFORMIN 500 MG TABLET PO SCH (17:00)
[2017-03-20] MEDS ORDERED: GOLDENSEAL PO SCH (21:00)
[2017-03-20] MEDS ORDERED: [UNRECOGNIZED DRUG - OTHER] PO SCH (21:00)
[2017-03-20] MEDS ORDERED: GARLIC PO SCH (21:00)
[2017-03-21] MEDS ORDERED: PANTOPRAZOLE 40 MG TABLET PO SCH (07:00)
[2017-03-21] MEDS ORDERED: MULTIVITAMIN W/MINERALS TABLET PO SCH (08:00)
[2017-03-21] MEDS ORDERED: OMEGA PO SCH (09:00)
[2017-03-21] MEDS ORDERED: LISINOPRIL 5 MG TABLET PO SCH (09:00)
[2017-03-21] MEDS ORDERED: FISH OIL PO SCH (09:00)
[2017-03-21] MEDS ORDERED: MILK THISTLE 150 MG PO SCH (09:00)
[2017-03-21] MEDS ORDERED: EPA PO SCH (09:00)
[2017-03-21] MEDS ORDERED: DHA PO SCH (09:00)
[2017-03-21] MEDS ORDERED: BIOTIN 10000 MCG PO SCH (09:00)
[2017-03-21] MEDS ORDERED: TOCOPHERYL 400 UNIT CAPSULE PO SCH (09:00)
== END 2017-03-20 13:39 | disposition home or self-care (01) | DRG 392 ==
LOC: ED 02:59 → MS2 06:07 → OBS 06:37 → OBSVTOIN 03-17 12:07 → MS2 03-17 12:21
PROVIDERS: ADMIT Specialist; ATTEND Nurse Practitioner
PROC: 0DJ08ZZ Inspection of Upper Intestinal Tract, Via Natural or Artificial Opening Endoscopic (ICD-10-PCS; principal; 2017-03-17 12:00)
PROC: 0DJD8ZZ Inspection of Lower Intestinal Tract, Via Natural or Artificial Opening Endoscopic (ICD-10-PCS; 2017-03-17 12:00)
DX: A08.4 Viral intestinal infection, unspecified (principal); N13.30 Unspecified hydronephrosis; D50.9 Iron deficiency anemia, unspecified; E86.0 Dehydration; K75.81 Nonalcoholic steatohepatitis (NASH); E87.6 Hypokalemia; S30.817A Abrasion of anus, initial encounter; X58.XXXA Exposure to other specified factors, initial encounter; E06.3 Autoimmune thyroiditis; I48.0 Paroxysmal atrial fibrillation; J45.909 Unspecified asthma, uncomplicated; R16.1 Splenomegaly, not elsewhere classified; G43.909 Migraine, unspecified, not intractable, without status migrainosus; G90.1 Familial dysautonomia [Riley-Day]; E28.2 Polycystic ovarian syndrome; E88.81 Metabolic syndrome and other insulin resistance; E66.01 Morbid (severe) obesity due to excess calories; Z87.11 Personal history of peptic ulcer disease; Z68.38 Body mass index [BMI] 38.0-38.9, adult
CPT/HCPCS: 36415; 70450; 72125; 74177; 76700; 76770; 80048; 80053; 81001; 81003; 81025; 82140; 82150; 82465; 82550; 82728; 83540; 83690; 83718; 83735; 84443; 84466; 84484; 84702; 85025; 85610; 86317; 86707; 86708; 86709; 86803; 87045; 87046; 87086; 87340; 87350; 87493; 87522; 87798; 87902; 96361; 96374; 96375; 96376; 99283; 99284

== ENCOUNTER 2017-04-04 08:42 | Emergency (ER) | payer OTHER, MEDICAID ==
[2017-04-04 09:16] LABS: BILIRUBIN,URINE NEGATIVE (NEGATIVE)
[2017-04-04 09:20] LABS: UA w/ MICROSCOPIC CHARGE YES
[2017-04-04 09:27] LABS: UR CULTURE IF IND NOT INDICATED; WBC,URINE 0-3 /HPF (0-5)
[2017-04-04] MEDS ORDERED: SODIUM CHLORIDE 0.9% 1,000 ML IV ONE ×2 (09:38→13:22)
[2017-04-04 09:48] LABS: BASOPHILS # (AUTO) 0.1 10^3/uL (0.0-0.1); BASOPHILS % (AUTO) 1.1 %; EOSINOPHILS # (AUTO) 0.1 10^3/uL (0.0-0.7); HCT - HEMATOCRIT 40.4 % (37.0-47.0); HGB - HEMOGLOBIN 14.1 g/dL (12.0-16.0); LYMPHOCYTES # (AUTO) 1.8 10^3/uL (1.5-3.5); LYMPHOCYTES % (AUTO) 15.4 %; MEAN CORPUSCULAR HEMOGLOBIN 31.3 pg (27.0-31.0); MEAN CORPUSCULAR HGB CONC 34.8 g/dL (32.0-36.0); MEAN CORPUSCULAR VOLUME 89.9 fL (81.0-99.0); MEAN PLATELET VOLUME 7.2 fL (7.9-10.8); MONOCYTES # (AUTO) 0.7 10^3/uL (0.0-1.0); MONOCYTES % (AUTO) 5.8 %; NEUTROPHILS % (AUTO) 76.7 %; NUCLEATED RED BLOOD CELLS AUTO 0.1 /100WBC; RED BLOOD COUNT 4.49 10^6/uL (4.20-5.40); RED CELL DISTRIBUTION WIDTH 13.4 % (12.0-15.0); UNCORRECTED WHITE BLOOD COUNT 11.8 x10^3/uL; WHITE BLOOD COUNT 11.8 x10^3/uL (4.8-10.8)
--- NOTE | 2017-04-04 09:48 | ED Physician Documentation ---
PD HPI NVD - Stated complaint Stated Complaint: V/D - Chief complaint Chief Complaint: Abd Pain - History obtained from History obtained from: Patient - History of Present Illness Timing - onset: Today Timing - duration: Hours Timing - details: Abrupt onset, Still present, Intermittant Associated symptoms: Abdominal pain Contributing factors: No: Sick contact, Bad food, Travel, Recent antibiotics, Alcohol use, Anticoagulated, Diabetes Improved by: Other (standing) Worsened by: Other (lying) Similar symptoms before: No diagnosis Recently seen: Admitted - Additonal information Additional information: 37-year-old female was admitted at the beginning of this month for 6 days to the hospital with excessive diarrhea and dehydration. She does have Josue and she has been in to see the director supply at the [facility] following her admission here. She has continued to have loose stool 3-4 times per day since her discharge from the hospital. Today she developed sudden onset of severe diarrhea and nausea and vomiting. She did have some blood in her vomitus. Review of Systems Constitutional: reports: Fatigue. denies: Fever, Chills Eyes: denies: Decreased vision Ears: denies: Ear pain Nose: denies: Rhinorrhea / runny nose, Congestion Throat: denies: Sore throat Cardiac: denies: Chest pain / pressure, Palpitations Respiratory: denies: Dyspnea, Cough GI: reports: Abdominal Pain, Nausea, Vomiting, Diarrhea : denies: Dysuria, Frequency Skin: denies: Rash Musculoskeletal: denies: Neck pain, Back pain, Extremity pain Neurologic: reports: Generalized weakness. denies: Focal weakness, Numbness PD PAST MEDICAL HISTORY - Past Medical History Cardiovascular: Atrial fibrillation (Paroxysmal. In the past she was using atenolol because her heart rate go up to 180. When atenolol ceased being made by the onsite health coach she was changed to metoprolol. However metoprolol resulted in too many episodes of bradycardia and that was discontinued.), Other ( Orthostatic hypotension) Respiratory: Asthma (Seasonal, due to allergies, occasional use of oral steroids. As needed use of albuterol no more than 2 times a week. She has never been intubated for it.) Neuro: Other (Dysautonomia variant. Manifestations of been her tachycardia and orthostatic hypotension so far ) Endocrine/Autoimmune: HyPOthyroidism (Viki's), Other (Polycystic ovarian disease with morbid obesity, metabolic syndrome, insulin resistance.) GI: Other (JOSUE. Uncle has of cirrhosis from that) VETERINARY MEDICINE DOCTOR: Ovarian cysts (Dad is 62 years old and has severe alcoholism, diabetes, hypertension and hyperlipidemia), Other () : None HEENT: Chronic vision loss (And needs lenses for far vision) Psych: None Musculoskeletal: Scoliosis Derm: None - Past Surgical History Past Surgical History: Yes General: Cholecystectomy, Colonoscopy, EGD /VETERINARY MEDICINE DOCTOR: section Derm: Other - Present Medications Home Medications: Ambulatory Orders Medication Instructions Recorded Confirmed Albuterol [Ventolin Hfa] 2 puffs INH Q4H PRN 11/27/14 04/04/17 Biotin [Norberto Biotin] 10,000 mcg PO DAILY 11/27/14 04/04/17 Cholecalciferol (Vitamin D3) 1,000 unit PO DAILY 11/27/14 04/04/17 [Vitamin D3] Folic Acid 400 mcg PO DAILY 11/27/14 04/04/17 Garlic 1 each PO BID 11/27/14 04/04/17 Goldenseal/Echinacea Purpurea 2 cap PO BID 11/27/14 04/04/17 [Echinacea & Goldenseal Cap] Levothyroxine [Synthroid] 125 mcg PO DAILY 11/27/14 04/04/17 Lisinopril 10 mg PO DAILY 11/27/14 04/04/17 Milk Thistle 150 mg PO DAILY 11/27/14 04/04/17 Multivitamin/Iron/Folic Acid 1 each PO DAILY 11/27/14 04/04/17 [Multi-Day Plus Iron Tablet] [place]-3/Dha/Epa/Fish Oil [Fish Oil] 200 mg PO DAILY 11/27/14 04/04/17 Vitamin E 400 unit PO DAILY 11/27/14 04/04/17 metFORMIN [Glucophage] 500 mg PO TIDWM 11/27/14 04/04/17 Omeprazole [PriLOSEC] 20 mg PO DAILY 01/07/17 04/04/17 traMADol [Ultram] 50 mg PO Q4-6H 04/04/17 04/04/17 - Allergies Allergies/Adverse Reactions: Allergies Allergy/AdvReac Type Severity Reaction Status Date / Time ciprofloxacin [From Cipro] Allergy Rash Verified 04/04/17 08:50 tetanus and diphtheria Allergy Anaphylaxis Verified 04/04/17 08:50 toxoids [tetanus & diphtheria toxoids] amoxicillin AdvReac Unknown Rash Verified 04/04/17 08:50 haloperidol [From Haldol] AdvReac Unknown Hallucinati Verified 04/04/17 08:50 ons haloperidol lactate * AdvReac Unknown Hallucinati Verified 04/04/17 08:50 [From Haldol] ons prochlorperazine edisylate * AdvReac Unknown Hallucinati Verified 04/04/17 08:50 [From Compazine] ons prochlorperazine maleate * AdvReac Unknown Hallucinati Verified 04/04/17 08:50 [From Compazine] ons cephalexin monohydrate * AdvReac Edema Verified 04/04/17 08:50 [From Keflex] - Social History Does the pt smoke?: No Smoking Status: Never smoker Does the pt drink ETOH?: No Does the pt have substance abuse?: No - Immunizations Immunizations are current?: Yes - POLST Patient has POLST: No POLST Status: Full Code PD ED PE NORMAL - Vitals Vital signs reviewed: Yes (hypertensive) - General General: Well developed/nourished, Other (The patient appears anxious ) - HEENT HEENT: Atraumatic, PERRL, EOMI, Other (dry mucous membranes) - Neck Neck: Supple, no meningeal sign, No bony TTP - Cardiac Cardiac: RRR, No murmur - Respiratory Respiratory: No respiratory distress, Clear bilaterally - Abdomen Abdomen: Soft, Other (mild generalized tenderness without focality to the exam ) - Back Back: No CVA TTP, No spinal TTP - Derm Derm: Normal color, Warm and dry, No rash - Extremities Extremities: No deformity, No edema - Neuro Neuro: Alert and oriented X 3, stripper black and white 2-12 intact, No motor deficit, No sensory deficit, Normal speech Eye Opening: Spontaneous Motor: Obeys Commands Verbal: Oriented GCS Score: 15 - Psych Psych: Normal mood, Normal affect Results - Vitals Vitals: Vital Signs - 24 hr 04/04/17 04/04/17 08:45 13:38 Temperature 35.3 C L Heart Rate 98 68 Respiratory 16 16 Rate Blood Pressure 150/94 H 106/77 O2 Saturation 98 98 Oxygen O2 Source Room air - Labs Labs: Microbiology 04/04/17 09:02 Campylobacter Antigen Assay - Final Stool Laboratory Tests 04/04/17 04/04/17 04/04/17 09:02 09:37 09:39 WBC 11.8 H RBC 4.49 Hgb 14.1 Hct 40.4 MCV 89.9 MCH 31.3 H MCHC 34.8 RDW 13.4 Plt Count 365 MPV 7.2 L Neut # 9.0 H Lymph # 1.8 Mobile # 0.7 Eos # 0.1 Baso # 0.1 Absolute Nucleated RBC 0.01 Nucleated RBC % 0.1 Sodium Potassium Chloride Carbon Dioxide Anion Gap BUN Creatinine Estimated GFR (MDRD) Glucose Calcium Total Bilirubin AST ALT Alkaline Phosphatase Total Protein Albumin Globulin Albumin/Globulin Ratio Lipase HCG, Quant < 0.60 Urine Color YELLOW Urine Clarity HAZY Urine pH 6.0 Ur Specific [place] >=1.030 H Urine Protein 30 H Urine Glucose (UA) NEGATIVE Urine Ketones NEGATIVE Urine Occult Blood NEGATIVE Urine Nitrite NEGATIVE Urine Bilirubin NEGATIVE Urine Urobilinogen 0.2 (NORMAL) Ur Leukocyte Esterase NEGATIVE Urine RBC 0-5 Urine WBC 0-3 Ur Squamous Epith Cells MANY Squamous H Urine Bacteria Moderate H Urine Mucus Few Strands Ur Microscopic Review INDICATED Urine Culture Comments NOT INDICATED Urine HCG, Qual 04/04/17 09:39 WBC RBC Hgb Hct MCV MCH MCHC RDW Plt Count MPV Neut # Lymph # Mobile # Eos # Baso # Absolute Nucleated RBC Nucleated RBC % Sodium 136 Potassium 4.2 Chloride 106 Carbon Dioxide 18 L Anion Gap 12.0 BUN 21 H Creatinine 0.9 Estimated GFR (MDRD) 71 L Glucose 124 H Calcium 10.0 Total Bilirubin 0.5 AST 27 ALT 45 Alkaline Phosphatase 44 Total Protein 8.7 H Albumin 4.9 Globulin 3.8 Albumin/Globulin Ratio 1.3 Lipase 26 HCG, Quant Urine Color Urine Clarity Urine pH Ur Specific [place] Urine Protein Urine Glucose (UA) Urine Ketones Urine Occult Blood Urine Nitrite Urine Bilirubin Urine Urobilinogen Ur Leukocyte Esterase Urine RBC Urine WBC Ur Squamous Epith Cells Urine Bacteria Urine Mucus Ur Microscopic Review Urine Culture Comments Urine HCG, Qual PD MEDICAL DECISION MAKING - ED course Complexity details: reviewed old records, reviewed results, re-evaluated patient , considered differential, d/w patient ED course: 37-year-old female with a recent admission to the hospital for severe diarrhea that lasted 6 days had some improvement at the time of discharge and then developed loose stool again since that time and today has developed profuse diarrhea again. Here in the ED she is dehydrated and she is given IV saline and lomotil without effect. She is given Departure - Departure Disposition: ED Place in Observation Clinical Impression: Diarrhea with dehydration Condition: Fair
[2017-04-04] MEDS ORDERED: ONDANSETRON 4 MG/2 ML VIAL IVP STA ×2 (09:51→16:39)
[2017-04-04] MEDS ORDERED: ONDANSETRON 4 MG/2 ML VIAL ONE ×2 (09:52→16:46)
[2017-04-04 10:01] LABS: ALBUMIN/GLOBULIN RATIO 1.3 (1.0-2.2); BILIRUBIN,TOTAL 0.5 mg/dL (0.2-1.0); CREATININE 0.9 mg/dL (0.4-1.0); POTASSIUM 4.2 mmol/L (3.5-5.0); TOTAL PROTEIN 8.7 g/dL (6.7-8.2)
[2017-04-04] MEDS ORDERED: DIPHENOX/ATROPINE 2.5/0.025 MG TABLET PO STA (12:15)
[2017-04-04] MEDS ORDERED: DIPHENOX/ATROPINE 2.5/0.025 MG TABLET PO ONE (12:32)
[2017-04-04] MEDS ORDERED: HYDROmorphone 1 MG/ML SYRINGE IVP STA (13:22)
[2017-04-04] MEDS ORDERED: AZITHROMYCIN 250 MG TABLET PO STA (13:22)
[2017-04-04] MEDS ORDERED: HYDROmorphone 1 MG/ML SYRINGE ONE (13:37)
[2017-04-04] MEDS ORDERED: AZITHROMYCIN 250 MG TABLET PO ONE (13:37)
--- NOTE | 2017-04-04 18:30 | ED Physician Documentation ---
History of Present Illness - Stated complaint Stated Complaint: V/D - Chief complaint Chief Complaint: Abd Pain PD PAST MEDICAL HISTORY - Past Medical History Past Medical History: Yes Cardiovascular: Atrial fibrillation (Paroxysmal. In the past she was using atenolol because her heart rate go up to 180. When atenolol ceased being made by the countersinker balance screw hole she was changed to metoprolol. However metoprolol resulted in too many episodes of bradycardia and that was discontinued.), Other ( Orthostatic hypotension) Respiratory: Asthma (Seasonal, due to allergies, occasional use of oral steroids. As needed use of albuterol no more than 2 times a week. She has never been intubated for it.) Neuro: Other (Dysautonomia variant. Manifestations of been her tachycardia and orthostatic hypotension so far ) Endocrine/Autoimmune: HyPOthyroidism (Viki's), Other (Polycystic ovarian disease with morbid obesity, metabolic syndrome, insulin resistance.) GI: Other (JOSUE. 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: Ovarian cysts (Dad is 62 years old and has severe alcoholism, diabetes, hypertension and hyperlipidemia), Other () : None HEENT: Chronic vision loss (And needs lenses for far vision) Psych: None Musculoskeletal: Scoliosis Derm: None Other Past Medical History: JOSUE - Past Surgical History Past Surgical History: Yes General: Cholecystectomy, Colonoscopy, EGD /REMOTE SENSING SPECIALIST: section Derm: Other - Present Medications Home Medications: Ambulatory Orders Medication Instructions Recorded Confirmed Albuterol [Ventolin Hfa] 2 puffs INH Q4H PRN 11/27/14 04/04/17 Biotin [Norberto Biotin] 10,000 mcg PO DAILY 11/27/14 04/04/17 Cholecalciferol (Vitamin D3) 1,000 unit PO DAILY 11/27/14 04/04/17 [Vitamin D3] Folic Acid 400 mcg PO DAILY 11/27/14 04/04/17 Garlic 1 each PO BID 11/27/14 04/04/17 Goldenseal/Echinacea Purpurea 2 cap PO BID 11/27/14 04/04/17 [Echinacea & Goldenseal Cap] Levothyroxine [Synthroid] 125 mcg PO DAILY 11/27/14 04/04/17 Lisinopril 10 mg PO DAILY 11/27/14 04/04/17 Milk Thistle 150 mg PO DAILY 11/27/14 04/04/17 Multivitamin/Iron/Folic Acid 1 each PO DAILY 11/27/14 04/04/17 [Multi-Day Plus Iron Tablet] [place]-3/Dha/Epa/Fish Oil [Fish Oil] 200 mg PO DAILY 11/27/14 04/04/17 Vitamin E 400 unit PO DAILY 11/27/14 04/04/17 metFORMIN [Glucophage] 500 mg PO TIDWM 11/27/14 04/04/17 Omeprazole [PriLOSEC] 20 mg PO DAILY 01/07/17 04/04/17 Ondansetron Odt [Zofran] 4 mg TL Q6H PRN #10 tablet 04/04/17 traMADol [Ultram] 50 mg PO Q4-6H 04/04/17 04/04/17 - Allergies Allergies/Adverse Reactions: Allergies Allergy/AdvReac Type Severity Reaction Status Date / Time ciprofloxacin [From Cipro] Allergy Rash Verified 04/04/17 08:50 tetanus and diphtheria Allergy Anaphylaxis Verified 04/04/17 08:50 toxoids [tetanus & diphtheria toxoids] amoxicillin AdvReac Unknown Rash Verified 04/04/17 08:50 haloperidol [From Haldol] AdvReac Unknown Hallucinati Verified 04/04/17 08:50 ons haloperidol lactate * AdvReac Unknown Hallucinati Verified 04/04/17 08:50 [From Haldol] ons prochlorperazine edisylate * AdvReac Unknown Hallucinati Verified 04/04/17 08:50 [From Compazine] ons prochlorperazine maleate * AdvReac Unknown Hallucinati Verified 04/04/17 08:50 [From Compazine] ons cephalexin monohydrate * AdvReac Edema Verified 04/04/17 08:50 [From Keflex] - Social History Does the pt smoke?: No Smoking Status: Never smoker Does the pt drink ETOH?: No Does the pt have substance abuse?: No - Immunizations Immunizations are current?: Yes - POLST Patient has POLST: No POLST Status: Full Code Results - Vitals Vitals: Vital Signs - 24 hr 04/04/17 04/04/17 04/04/17 08:45 13:38 15:57 Temperature 35.3 C L Heart Rate 98 68 86 Respiratory 16 16 16 Rate Blood Pressure 150/94 H 106/77 118/69 O2 Saturation 98 98 100 Oxygen O2 Source Room air - Labs Labs: Microbiology 04/04/17 09:02 Campylobacter Antigen Assay - Final Stool Laboratory Tests 04/04/17 04/04/17 04/04/17 09:02 09:37 09:39 WBC 11.8 H RBC 4.49 Hgb 14.1 Hct 40.4 MCV 89.9 MCH 31.3 H MCHC 34.8 RDW 13.4 Plt Count 365 MPV 7.2 L Neut # 9.0 H Lymph # 1.8 [place] # 0.7 Eos # 0.1 Baso # 0.1 Absolute Nucleated RBC 0.01 Nucleated RBC % 0.1 Sodium Potassium Chloride Carbon Dioxide Anion Gap BUN Creatinine Estimated GFR (MDRD) Glucose Calcium Total Bilirubin AST ALT Alkaline Phosphatase Total Protein Albumin Globulin Albumin/Globulin Ratio Lipase HCG, Quant < 0.60 Urine Color YELLOW Urine Clarity HAZY Urine pH 6.0 Ur Specific [place] >=1.030 H Urine Protein 30 H Urine Glucose (UA) NEGATIVE Urine Ketones NEGATIVE Urine Occult Blood NEGATIVE Urine Nitrite NEGATIVE Urine Bilirubin NEGATIVE Urine Urobilinogen 0.2 (NORMAL) Ur Leukocyte Esterase NEGATIVE Urine RBC 0-5 Urine WBC 0-3 Ur Squamous Epith Cells MANY Squamous H Urine Bacteria Moderate H Urine Mucus Few Strands Ur Microscopic Review INDICATED Urine Culture Comments NOT INDICATED Urine HCG, Qual 04/04/17 09:39 WBC RBC Hgb Hct MCV MCH MCHC RDW Plt Count MPV Neut # Lymph # [place] # Eos # Baso # Absolute Nucleated RBC Nucleated RBC % Sodium 136 Potassium 4.2 Chloride 106 Carbon Dioxide 18 L Anion Gap 12.0 BUN 21 H Creatinine 0.9 Estimated GFR (MDRD) 71 L Glucose 124 H Calcium 10.0 Total Bilirubin 0.5 AST 27 ALT 45 Alkaline Phosphatase 44 Total Protein 8.7 H Albumin 4.9 Globulin 3.8 Albumin/Globulin Ratio 1.3 Lipase 26 HCG, Quant Urine Color Urine Clarity Urine pH Ur Specific [place] Urine Protein Urine Glucose (UA) Urine Ketones Urine Occult Blood Urine Nitrite Urine Bilirubin Urine Urobilinogen Ur Leukocyte Esterase Urine RBC Urine WBC Ur Squamous Epith Cells Urine Bacteria Urine Mucus Ur Microscopic Review Urine Culture Comments Urine HCG, Qual PD MEDICAL DECISION MAKING - ED course ED course: pt was seen by day ER provider and a consult was made for admission for diarrhea and dehydration. The IM (Dr Kevin) provider evaluated to the pt in the ER and stated that she did not think that the needed admission. I went in to do my evaluation of the pt and reviewed the pt's labs. She has tolerated PO intake in the ER. has had multiple fluid bolus in the ER. has a elevated WBC count but this is a non-specific finding. has a soft benign abd. has no electrolyte abnormalities. pt has been admitted in the past for this and has had a scope and multiple other tests. After my evaluation I feel that the pt is Ok for discharge. She was instructed to follow up with her GI provider. will send home with a rx for zofran. Informed her that if she was unable to maintain hydration then she could return to the ER. She seemed upset about going home but I explained to her that she did not meet admission criteria even for dehydration. She expressed understanding. Departure - Departure Disposition: 01 Home, Self Care Clinical Impression: Diarrhea with dehydration Condition: Good Instructions: ED Diet Vomiting Diarrhea Follow-Up: Shaunna John PA-C [Primary Care Provider] - Prescriptions: Ondansetron Odt [Zofran] 4 mg TL Q6H PRN #10 tablet PRN Reason: Nausea / Vomiting Comments: Increase your fluid intake. You need to call your GI provider tomorrow for a follow up this week.
[2017-04-04 18:45] VITALS: BP 111/68
[2017-04-04] MEDS ORDERED: ONDANSETRON ODT 4 MG Prepack 2 TL PRN (18:45)
[2017-04-04] MEDS ORDERED: ONDANSETRON ODT 4 MG Prepack 2 TL ONE (18:53)
== END 2017-04-04 19:05 | disposition home or self-care (01) ==
LOC: ED 08:42
DX: E86.0 Dehydration (principal); R19.7 Diarrhea, unspecified; K75.81 Nonalcoholic steatohepatitis (NASH); I48.0 Paroxysmal atrial fibrillation; J45.909 Unspecified asthma, uncomplicated; E03.9 Hypothyroidism, unspecified; E66.01 Morbid (severe) obesity due to excess calories; E28.2 Polycystic ovarian syndrome
CPT/HCPCS: 36415; 80053; 81001; 81025; 83690; 84702; 85025; 87045; 87046; 96361; 96374; 96375; 96376; 99284; 99285; A9270; J1170; 81003; 87077; 87086

== ENCOUNTER 2017-05-07 11:06 | Emergency (ER) | payer OTHER, MEDICAID ==
[2017-05-07 12:44] LABS: BASOPHILS % (AUTO) 0.3 %; EOSINOPHILS # (AUTO) 0.2 10^3/uL (0.0-0.7); EOSINOPHILS % (AUTO) 1.7 %; HGB - HEMOGLOBIN 13.2 g/dL (12.0-16.0); LYMPHOCYTES # (AUTO) 1.7 10^3/uL (1.5-3.5); LYMPHOCYTES % (AUTO) 18.3 %; MEAN CORPUSCULAR HEMOGLOBIN 31.2 pg (27.0-31.0); MEAN CORPUSCULAR HGB CONC 34.6 g/dL (32.0-36.0); MEAN CORPUSCULAR VOLUME 90.3 fL (81.0-99.0); MEAN PLATELET VOLUME 7.1 fL (7.9-10.8); MONOCYTES # (AUTO) 0.6 10^3/uL (0.0-1.0); MONOCYTES % (AUTO) 6.1 %; NEUTROPHILS # (AUTO) 6.9 10^3/uL (1.5-6.6); NEUTROPHILS % (AUTO) 73.6 %; PLT - PLATELET COUNT 287 10^3/uL (130-450); RED BLOOD COUNT 4.22 10^6/uL (4.20-5.40); RED CELL DISTRIBUTION WIDTH 12.3 % (12.0-15.0); WHITE BLOOD COUNT 9.4 x10^3/uL (4.8-10.8)
[2017-05-07 12:57] LABS: ALBUMIN 4.5 g/dL (3.2-5.5); ALBUMIN/GLOBULIN RATIO 1.4 (1.0-2.2); BILIRUBIN,TOTAL 0.6 mg/dL (0.2-1.0); CALCIUM 9.7 mg/dL (8.5-10.3); CREATININE 0.8 mg/dL (0.4-1.0); TOTAL PROTEIN 7.8 g/dL (6.7-8.2)
[2017-05-07] MEDS ORDERED: MORPHINE 2 MG/ML SYRINGE IVP STA (14:12)
--- NOTE | 2017-05-07 14:18 | ED Physician Documentation ---
History of Present Illness - Stated complaint Stated Complaint: DIFFICULTY BREATHING - Chief complaint Chief Complaint: Abd Pain - Additonal information Additional information: hx from pt 37 f s/p liver bx at [facility] yesterday to work up non alcoholic non hepatitis liver dz had pain within 10 min of procedure was kept at [facility] until late evening gettign serial H/H then deemed stable and dced this AM still having pain and called [facility] and was told to go to the ER pain is to lower R chest and upper abd worse with breathing Review of Systems Constitutional: denies: Fever, Chills Cardiac: reports: Chest pain / pressure Respiratory: reports: Dyspnea GI: reports: Abdominal Pain Endocrine: denies: Easy bruising / bleeding Immunocompromised: denies: Immunocompromised PD PAST MEDICAL HISTORY - Past Medical History Cardiovascular: Atrial fibrillation (Paroxysmal. In the past she was using atenolol because her heart rate go up to 180. When atenolol ceased being made by the special officer automat she was changed to metoprolol. However metoprolol resulted in too many episodes of bradycardia and that was discontinued.), Other ( Orthostatic hypotension) Respiratory: Asthma (Seasonal, due to allergies, occasional use of oral steroids. As needed use of albuterol no more than 2 times a week. She has never been intubated for it.) Neuro: Other (Dysautonomia variant. Manifestations of been her tachycardia and orthostatic hypotension so far ) Endocrine/Autoimmune: HyPOthyroidism (Viki's), Other (Polycystic ovarian disease with morbid obesity, metabolic syndrome, insulin resistance.) GI: Other (JOSUE. 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: Ovarian cysts (Dad is 62 years old and has severe alcoholism, diabetes, hypertension and hyperlipidemia), Other () : None HEENT: Chronic vision loss (And needs lenses for far vision) Psych: None Musculoskeletal: Scoliosis Derm: None - Past Surgical History Past Surgical History: Yes General: Cholecystectomy, Colonoscopy, EGD /LEAD FORMER: section Derm: Other - Present Medications Home Medications: Ambulatory Orders Medication Instructions Recorded Confirmed Albuterol [Ventolin Hfa] 2 puffs INH Q4H PRN 11/27/14 05/07/17 Biotin [Norberto Biotin] 10,000 mcg PO DAILY 11/27/14 05/07/17 Cholecalciferol (Vitamin D3) 1,000 unit PO DAILY 11/27/14 05/07/17 [Vitamin D3] Folic Acid 400 mcg PO DAILY 11/27/14 05/07/17 Garlic 1 each PO BID 11/27/14 05/07/17 Goldenseal/Echinacea Purpurea 2 cap PO BID 11/27/14 05/07/17 [Echinacea & Goldenseal Cap] Levothyroxine [Synthroid] 125 mcg PO DAILY 11/27/14 05/07/17 Lisinopril 10 mg PO DAILY 11/27/14 05/07/17 Milk Thistle 150 mg PO DAILY 11/27/14 05/07/17 Multivitamin/Iron/Folic Acid 1 each PO DAILY 11/27/14 05/07/17 [Multi-Day Plus Iron Tablet] [place]-3/Dha/Epa/Fish Oil [Fish Oil] 200 mg PO DAILY 11/27/14 05/07/17 Vitamin E 400 unit PO DAILY 11/27/14 05/07/17 metFORMIN [Glucophage] 500 mg PO TIDWM 11/27/14 05/07/17 Omeprazole [PriLOSEC] 20 mg PO DAILY 01/07/17 05/07/17 Ondansetron Odt [Zofran] 4 mg TL Q6H PRN #10 tablet 04/04/17 05/07/17 traMADol [Ultram] 50 mg PO Q4-6H 04/04/17 05/07/17 Oxycodone HCl/Acetaminophen 7.5 mg pe PO Q6HR 05/07/17 05/07/17 [Percocet 5-325 mg Tablet] Venlafaxine HCl [Venlafaxine HCl 37.5 mg PO BID 05/07/17 05/07/17 ER] - Allergies Allergies/Adverse Reactions: Allergies Allergy/AdvReac Type Severity Reaction Status Date / Time ciprofloxacin [From Cipro] Allergy Rash Verified 05/07/17 13:43 tetanus and diphtheria Allergy Anaphylaxis Verified 05/07/17 13:43 toxoids [tetanus & diphtheria toxoids] amoxicillin AdvReac Unknown Rash Verified 05/07/17 13:43 haloperidol [From Haldol] AdvReac Unknown Hallucinati Verified 05/07/17 13:43 ons haloperidol lactate * AdvReac Unknown Hallucinati Verified 05/07/17 13:43 [From Haldol] ons prochlorperazine edisylate * AdvReac Unknown Hallucinati Verified 05/07/17 13:43 [From Compazine] ons prochlorperazine maleate * AdvReac Unknown Hallucinati Verified 05/07/17 13:43 [From Compazine] ons cephalexin monohydrate * AdvReac Edema Verified 05/07/17 13:43 [From Keflex] - Social History Does the pt smoke?: No Smoking Status: Never smoker Does the pt drink ETOH?: No Does the pt have substance abuse?: No - Immunizations Immunizations are current?: Yes - POLST Patient has POLST: No POLST Status: Full Code PD ED PE NORMAL - Vitals Vital signs reviewed: Yes - Cardiac Cardiac: RRR - Respiratory Respiratory: Clear bilaterally, Other (limited insp 2/2 pain) - Abdomen Abdomen: Soft, Other (TTP RUQ no sig distension, small heamtoma posterior high R flank region in vicinity of lower ribs) - Derm Derm: Normal color - Extremities Extremities: No deformity, No tenderness to palpate, Normal ROM s pain, No edema , No calf tenderness / cord - Neuro Neuro: Alert and oriented X 3 Results - Vitals Vitals: Vital Signs - 24 hr 05/07/17 05/07/17 05/07/17 11:16 15:38 17:49 Temperature 35.9 C L 36.6 C 35.9 C L Heart Rate 77 73 73 Respiratory 18 22 16 Rate Blood Pressure 126/84 H 105/60 96/56 L O2 Saturation 100 100 96 05/07/17 18:03 Temperature Heart Rate 68 Respiratory 16 Rate Blood Pressure 109/74 O2 Saturation 100 Oxygen O2 Source Room air - Labs Labs: Laboratory Tests 05/07/17 05/07/17 05/07/17 12:40 12:40 12:40 WBC 9.4 RBC 4.22 Hgb 13.2 Hct 38.1 MCV 90.3 MCH 31.2 H MCHC 34.6 RDW 12.3 Plt Count 287 MPV 7.1 L Neut # 6.9 H Lymph # 1.7 [place] # 0.6 Eos # 0.2 Baso # 0.0 Absolute Nucleated RBC 0.00 Nucleated RBC % 0.0 Sodium 136 Potassium 4.1 Chloride 99 L Carbon Dioxide 26 Anion Gap 11.0 BUN 11 Creatinine 0.8 Estimated GFR (MDRD) 81 L Glucose 95 Calcium 9.7 Total Bilirubin 0.6 AST 33 ALT 50 Alkaline Phosphatase 43 Total Protein 7.8 Albumin 4.5 Globulin 3.3 Albumin/Globulin Ratio 1.4 Lipase 23 Serum HCG, Qual NEGATIVE Urine Color Urine Clarity Urine pH Ur Specific [place] Urine Protein Urine Glucose (UA) Urine Ketones Urine Occult Blood Urine Nitrite Urine Bilirubin Urine Urobilinogen Ur Leukocyte Esterase Ur Microscopic Review Urine Culture Comments 05/07/17 17:10 WBC RBC Hgb Hct MCV MCH MCHC RDW Plt Count MPV Neut # Lymph # [place] # Eos # Baso # Absolute Nucleated RBC Nucleated RBC % Sodium Potassium Chloride Carbon Dioxide Anion Gap BUN Creatinine Estimated GFR (MDRD) Glucose Calcium Total Bilirubin AST ALT Alkaline Phosphatase Total Protein Albumin Globulin Albumin/Globulin Ratio Lipase Serum HCG, Qual Urine Color YELLOW Urine Clarity CLEAR Urine pH 6.0 Ur Specific [place] 1.015 Urine Protein NEGATIVE Urine Glucose (UA) NEGATIVE Urine Ketones NEGATIVE Urine Occult Blood NEGATIVE Urine Nitrite NEGATIVE Urine Bilirubin NEGATIVE Urine Urobilinogen 0.2 (NORMAL) Ur Leukocyte Esterase NEGATIVE Ur Microscopic Review NOT INDICATED Urine Culture Comments NOT INDICATED - Rads (name of study) CXR Radiology: See rad report (neg) abd sono Radiology: See rad report (no FF) PD MEDICAL DECISION MAKING - ED course ED course: pt pain is her primary concern states she cannot take apap 2/2 liver dz states toradol never work states percocet at home not helping gave morphine in the ER and she states it made her worse request dilaudid - gave 1 mg while waiting for test results test results neg and plan to dc pt she is requesting more dilaudid but there is a nation wide shortage and I do not feel it is best used for a pt with a neg work up now being discharged, offered oxycodone instead, she understands and proceeded with discharge Departure - Departure Disposition: Home, Self Care Clinical Impression: Post-op pain Condition: Good Instructions: Biopsy Liver Comments: Your blood count is better than yesterday. The xray does not show a collapsed lung The ultrasound does not show internal bleeding I think it is safe for you to go home. We gave you pain medication in the ER - if the pain comes back after you get home take the medication recommended by your surgeon. Follow up with your specialist next week if the symptoms persist Return to the ER if worse over the weekend Discharge Date/Time: 05/07/17 18:05
[2017-05-07 14:39] LABS: HCG,QUALITATIVE BLOOD NEGATIVE
--- NOTE | 2017-05-07 14:42 | XRAY Report ---
EXAM: CHEST RADIOGRAPHY EXAM DATE: 05/07/2017 02:35 PM. CLINICAL HISTORY: Short of breath. COMPARISON: 08/10/2013. TECHNIQUE: 2 views. FINDINGS: Lungs/Pleura: Clear. No effusion or pneumothorax. Mediastinum: Heart and mediastinal contours are unremarkable. Upper lobe vessels not distended. Other: No free intraperitoneal air. IMPRESSION: No acute disease. [facility] Referring Provider Line: [phone] SITE ID: [id number]
[2017-05-07] MEDS ORDERED: SODIUM CHLORIDE 0.9% 1,000 ML IV ONE (15:34)
[2017-05-07] MEDS ORDERED: HYDROmorphone 1 MG/ML SYRINGE IVP STA (15:34)
--- NOTE | 2017-05-07 17:24 | Ultrasound Report ---
EXAM: ABDOMEN ULTRASOUND LIMITED, RUQ EXAM DATE: 05/07/2017 05:07 PM. CLINICAL HISTORY: Ruq pain after liver bx 05/06. COMPARISON: 03/15/2017. TECHNIQUE: Real-time scanning was performed with static images obtained. FINDINGS: Liver: Submitted images of liver demonstrate no focal lesions. Other: There is no evidence of intra-abdominal free fluid. IMPRESSION: No evidence of intraperitoneal free fluid. [facility] Referring Provider Line: [phone] SITE ID: [id number]
[2017-05-07 17:33] LABS: BILIRUBIN,URINE NEGATIVE (NEGATIVE); GLUCOSE, URINE (UA) NEGATIVE (NEGATIVE); KETONES,URINE (UA) NEGATIVE (NEGATIVE); LEUKOCYTE ESTERASE, URINE NEGATIVE (NEGATIVE); NITRITE,URINE NEGATIVE (NEGATIVE); OCCULT BLOOD,URINE NEGATIVE (NEGATIVE); PROTEIN,URINE NEGATIVE (NEGATIVE); UROBILINOGEN,URINE 0.2 (NORMAL) E.U./dL (NORMAL)
[2017-05-07 17:40] LABS: CLARITY,URINE CLEAR (CLEAR)
[2017-05-07] MEDS ORDERED: oxyCODONE 5 MG TABLET PO STA (17:51)
[2017-05-07 18:04] VITALS: BP 109/74
== END 2017-05-07 18:05 | disposition home or self-care (01) ==
LOC: ED 11:06
DX: G89.18 Other acute postprocedural pain (principal); I48.0 Paroxysmal atrial fibrillation; E66.01 Morbid (severe) obesity due to excess calories; E03.9 Hypothyroidism, unspecified; E88.81 Metabolic syndrome and other insulin resistance
CPT/HCPCS: 36415; 71020; 76705; 80053; 81003; 83690; 84703; 85025; 96361; 96374; 96375; 99283; 99284; A9270; J1170; J2270; 81001; 87086

== ENCOUNTER 2018-05-19 08:05 | Outpatient (CLI) | payer OTHER ==
[2018-05-19 11:42] LABS: BASOPHILS # (AUTO) 0.1 10^3/uL (0.0-0.1); BASOPHILS % (AUTO) 0.7 %; EOSINOPHILS # (AUTO) 0.3 10^3/uL (0.0-0.7); EOSINOPHILS % (AUTO) 3.4 %; HGB - HEMOGLOBIN 12.4 g/dL (12.0-16.0); LYMPHOCYTES # (AUTO) 2.6 10^3/uL (1.5-3.5); LYMPHOCYTES % (AUTO) 32.6 %; MEAN CORPUSCULAR HEMOGLOBIN 31.2 pg (27.0-31.0); MEAN CORPUSCULAR HGB CONC 35.2 g/dL (32.0-36.0); MEAN CORPUSCULAR VOLUME 88.5 fL (81.0-99.0); MEAN PLATELET VOLUME 7.7 fL (7.9-10.8); MONOCYTES # (AUTO) 0.5 10^3/uL (0.0-1.0); MONOCYTES % (AUTO) 6.6 %; NEUTROPHILS # (AUTO) 4.6 10^3/uL (1.5-6.6); NEUTROPHILS % (AUTO) 56.7 %; PLT - PLATELET COUNT 327 10^3/uL (130-450); RED BLOOD COUNT 3.98 10^6/uL (4.20-5.40); RED CELL DISTRIBUTION WIDTH 12.3 % (12.0-15.0); WHITE BLOOD COUNT 8.1 x10^3/uL (4.8-10.8)
[2018-05-19 12:12] LABS: ALBUMIN 4.3 g/dL (3.2-5.5); ALBUMIN/GLOBULIN RATIO 1.5 (1.0-2.2); ALKALINE PHOSPHATASE 51 IU/L (42-121); ALT ALANINE AMINOTRANSFERASE 61 IU/L (10-60); AST ASPARTATE AMINOTRANSFERASE 37 IU/L (10-42); BILIRUBIN,TOTAL 0.5 mg/dL (0.2-1.0); BUN - BLOOD UREA NITROGEN 17 mg/dL (6-20); CALCIUM 9.1 mg/dL (8.5-10.3); CARBON DIOXIDE - CO2 26 mmol/L (21-32); CHLORIDE 103 mmol/L (101-111); CHOL/HDL RATIO 4.7 (<4.4); CHOLESTEROL 168 mg/dL; CREATININE 0.7 mg/dL (0.4-1.0); GFR - MDRD 94 (>89); GLUCOSE 81 mg/dL (70-100); HDL CHOLESTEROL 36 mg/dL; LDL CHOLESTEROL,CALCULATED 108 mg/dL; SODIUM 136 mmol/L (135-145); TOTAL PROTEIN 7.1 g/dL (6.7-8.2); VLDL CHOLESTEROL 24 mg/dL
[2018-05-19 12:41] LABS: THYROID STIMULATING HORMONE 0.21 uIU/mL (0.34-5.60)
[2018-05-19 12:43] LABS: FREE T4 (FREE THYROXINE) 1.1 ng/dL (0.58-1.64)
[2018-05-19 12:53] LABS: HB2 TOTAL 13.1 g/dL; HEMOGLOBIN A1C 0.46 g/dL; HEMOGLOBIN A1C % 5.4 % (4.6-6.2)
== END 2018-05-19 08:06 | disposition home or self-care (01) ==
LOC: LAB.F 08:05
PROVIDERS: ATTEND Nurse Practitioner Family
DX: E88.81 Metabolic syndrome and other insulin resistance (principal); Z13.220 Encounter for screening for lipoid disorders; E03.9 Hypothyroidism, unspecified
CPT/HCPCS: 36415; 80053; 80061; 83036; 83721; 84439; 84443; 85025

== ENCOUNTER 2018-05-26 14:48 | Outpatient (CLI) | payer BC, OTHER ==
--- NOTE | 2018-05-27 10:01 | Mammography Report ---
Reason: SCREENING MAMMO, FAMILY HX BREAST CANCER Procedure Date: 05/26/2018 Accession Number: [id number] / [id number] Procedure: TANA - Screening Mammo w/Sunny CPT Code: FULL RESULT: EXAM: Screening Mammo w/Sunny DATE: 05/26/2018 3:25 PM CLINICAL HISTORY: Routine screening TECHNIQUE: Bilateral CC and MLO views were obtained. COMPARISON: 11/05/2011 FINDINGS: There are scattered fibroglandular densities. There is been progressive fatty replacement of the breast tissue since the prior study. No suspicious masses, clustered microcalcifications, or regions of architectural distortion are identified. IMPRESSION: Benign findings RECOMMENDATION: Routine annual screening unless otherwise clinically indicated. BIRADS CATEGORY 2: Benign findings STANDARD QUALIFYING STATEMENTS: 1. This examination was not reviewed with the aid of Computer-Aided Detection (CAD). 2. A negative or benign imaging report should not delay biopsy if clinically suspicious findings are present. Consider surgical consultation if warrented. More than 5% of cancers are not identified by imaging. 3. Dense breasts may obscure an underlying neoplasm. 4. This examination was reviewed with the aid of 3D breast imaging (tomosynthesis).
== END 2018-05-26 14:49 | disposition home or self-care (01) ==
LOC: DI 14:48
PROVIDERS: ATTEND Nurse Practitioner Family
DX: Z12.31 Encounter for screening mammogram for malignant neoplasm of breast (principal); Z80.3 Family history of malignant neoplasm of breast
CPT/HCPCS: 77063; 77067

== ENCOUNTER 2018-11-03 21:48 | Emergency (ER) | payer BC, OTHER ==
--- NOTE | 2018-11-03 22:45 | ED Physician Documentation ---
PD HPI HEAD INJURY - Stated complaint Stated Complaint: LFT FACIAL INJ - Chief complaint Chief Complaint: Trauma Hd/Nk - History obtained from History obtained from: Patient - History of Present Illness Mechanism of head injury: Blow Where head injury occurred: [place] Timing - onset: Enter time (17:00) Pain level now: 8 Location of injury: Left Quality of pain: Pain Associated symptoms: No: LOC, AMS, Nausea / vomiting, Neck pain Symptoms improve with: Nothing Symptoms worsen with: Palpation Contributing factors: No: Anticoagulated, Intoxicated Similar symptoms before: Has not had sx before Recently seen: Not recently seen - Additional information Additional information: while playing baseball this afternoon at approximately 5 PM, patient was struck by baseball to left side of face, c/o sudden onset pain, gradually worsening Review of Systems Eyes: reports: Reviewed and negative Ears: reports: Reviewed and negative Nose: reports: Reviewed and negative Throat: reports: Reviewed and negative Neurologic: reports: Head injury. denies: Headache, LOC PD PAST MEDICAL HISTORY - Past Medical History Cardiovascular: Atrial fibrillation, Other Respiratory: Asthma Endocrine/Autoimmune: HyPOthyroidism, Other GI: Other JACK OF ALL TRADES: Ovarian cysts, Other : None HEENT: Chronic vision loss Psych: None Musculoskeletal: Scoliosis Derm: None - Past Surgical History Past Surgical History: Yes General: Cholecystectomy, Colonoscopy, EGD /JACK OF ALL TRADES: section Derm: Other - Present Medications Home Medications: Ambulatory Orders Medication Instructions Recorded Confirmed Albuterol [Ventolin Hfa] 2 puffs INH Q4H PRN 11/27/14 11/03/18 Levothyroxine [Synthroid] 125 mcg PO DAILY 11/27/14 11/03/18 Lisinopril 5 mg PO DAILY 11/27/14 01/11/18 Multivitamin/Iron/Folic Acid 1 each PO DAILY 11/27/14 11/03/18 [Multi-Day Plus Iron Tablet] metFORMIN [Glucophage] 500 mg PO BID 11/27/14 11/03/18 Venlafaxine HCl [Venlafaxine HCl 37.5 mg PO DAILY 05/07/17 11/03/18 ER] Oxycodone HCl/Acetaminophen 1 - 2 each PO Q6H PRN #14 tablet 11/04/18 [Percocet 5-325 mg Tablet] - Allergies Allergies/Adverse Reactions: Allergies Allergy/AdvReac Type Severity Reaction Status Date / Time ciprofloxacin [From Cipro] Allergy Rash Verified 11/03/18 22:06 tetanus and diphtheria Allergy Anaphylaxis Verified 11/03/18 22:06 toxoids [tetanus & diphtheria toxoids] amoxicillin AdvReac Unknown Rash Verified 11/03/18 22:06 haloperidol [From Haldol] AdvReac Unknown Hallucinati Verified 11/03/18 22:06 ons haloperidol lactate * AdvReac Unknown Hallucinati Verified 11/03/18 22:06 [From Haldol] ons prochlorperazine edisylate * AdvReac Unknown Hallucinati Verified 11/03/18 22:06 [From Compazine] ons prochlorperazine maleate * AdvReac Unknown Hallucinati Verified 11/03/18 22:06 [From Compazine] ons cephalexin monohydrate * AdvReac Edema Verified 11/03/18 22:06 [From Keflex] - Social History Does the pt smoke?: No Smoking Status: Never smoker Does the pt drink ETOH?: No Does the pt have substance abuse?: No - Immunizations Immunizations are current?: Yes - POLST Patient has POLST: No POLST Status: Full Code PD ED PE NORMAL - Vitals Vital signs reviewed: Yes - General General: Alert and oriented X 3, No acute distress, Well developed/nourished - HEENT HEENT: PERRL, EOMI, Ears normal, Moist mucous membranes PD ED PE EXPANDED - HEENT HEENT Visual: 1 - swelling, tenderness Results - Vitals Vitals: Vital Signs - 24 hr 11/04/18 01:18 Temperature 36.7 C Heart Rate 85 Respiratory 18 Rate Blood Pressure 128/74 O2 Saturation 97 Oxygen O2 Source Room air - Rads (name of study) [facility] Radiology: Prelim report reviewed, See rad report Departure - Departure Disposition: 01 Home, Self Care Clinical Impression: Facial contusion Condition: Good Health Concerns: head/face injury, pain Plan of Treatment: rest, prescription pain medication, follow up with primary care provider Care Goals: symptoms control Assessment: see diagnoses Instructions: ED Head Injury Closed Sleep Mon Prescriptions: Oxycodone HCl/Acetaminophen [Percocet 5-325 mg Tablet] 1 - 2 each PO Q6H PRN #14 tablet PRN Reason: pain Forms: Activity restrictions Discharge Date/Time: 11/04/18 01:19
[2018-11-03] MEDS ORDERED: HYDROmorphone 1 MG/ML CARPUJECT IM STA (23:03)
[2018-11-03] MEDS ORDERED: oxyCODONE 5 MG TABLET PO STA (23:48)
--- NOTE | 2018-11-03 23:52 | CT Report ---
Reason: facial injury, left jaw pain Procedure Date: 11/03/2018 Accession Number: [id number] / [id number] Procedure: CT - MAXILLOFACIAL WO CPT Code: FULL RESULT: EXAM: CT MAXILLOFACIAL WITHOUT CONTRAST EXAM DATE: 11/03/2018 11:31 PM. CLINICAL HISTORY: Facial injury, left jaw pain. COMPARISONS: None. TECHNIQUE: Thin-section axial images were acquired of the face without contrast. Post-processing: Coronal and sagittal reformats. Other: None. In accordance with CT protocol optimization, one or more of the following dose reduction techniques were utilized for this exam: automated exposure control, adjustment of mA and/or KV based on patient size, or use of iterative reconstructive technique. FINDINGS: Soft Tissue: The infratemporal fossa and parapharyngeal spaces are unremarkable. Orbits: Symmetric and unremarkable. Bones: No acute fractures. Temporomandibular Joints: The temporomandibular joints are symmetric and normally located. Sinuses: Right maxillary sinus mucosal retention cyst. Other: None. IMPRESSION: No acute maxillofacial fractures. [facility]
--- NOTE | 2018-11-03 23:53 | CT Report ---
Reason: head injury, BOONE Procedure Date: 11/03/2018 Accession Number: [id number] / [id number] Procedure: CT - HEAD WO CPT Code: FULL RESULT: EXAM: CT HEAD EXAM DATE: 11/03/2018 11:29 PM. CLINICAL HISTORY: Head injury, BOONE. COMPARISON: HEAD W/O 03/16/2017 4:11 PM FACIAL BONES W/O 11/03/2018 11:24 PM. TECHNIQUE: Multiaxial CT images were obtained from the foramen magnum to the vertex. Reformats: Sagittal and coronal. IV contrast: None. In accordance with CT protocol optimization, one or more of the following dose reduction techniques were utilized for this exam: automated exposure control, adjustment of mA and/or KV based on patient size, or use of iterative reconstructive technique. FINDINGS: Parenchyma: No intraparenchymal hemorrhage. No evidence of mass, midline shift or CT findings of acute territorial infarction. Crowley-white differentiation is distinct. Extraaxial Spaces: No subdural or epidural collections identified. Ventricles: No hydrocephalus Sinuses: Imaged paranasal sinuses, orbits, and mastoids show no significant abnormality. Bones: No evidence of acute fracture or calvarial defect. Other: None. IMPRESSION: No acute intracranial abnormalities. [facility]
[2018-11-04] MEDS ORDERED: oxyCODONE/ACET 5/325 Prepack 4 PO STA (01:02)
[2018-11-04 01:19] VITALS: BP 128/74
== END 2018-11-04 01:19 | disposition home or self-care (01) ==
LOC: ED 21:48
DX: S00.83XA Contusion of other part of head, initial encounter (principal); W21.03XA Struck by baseball, initial encounter; Y93.64 Activity, baseball; Y92.830 Public park as the place of occurrence of the external cause
CPT/HCPCS: 70450; 70486; 96372; 99283; A9270; J1170

== ENCOUNTER 2020-02-22 12:18 | Outpatient (CLI) | payer BC, OTHER ==
[2020-02-22 15:31] LABS: BASOPHILS # (AUTO) 0.1 10^3/uL (0.0-0.1); BASOPHILS % (AUTO) 1.1 %; EOSINOPHILS # (AUTO) 0.3 10^3/uL (0.0-0.7); EOSINOPHILS % (AUTO) 3.6 %; HGB - HEMOGLOBIN 12.2 g/dL (12.0-16.0); LYMPHOCYTES # (AUTO) 1.9 10^3/uL (1.5-3.5); LYMPHOCYTES % (AUTO) 25.2 %; MEAN CORPUSCULAR HEMOGLOBIN 31.1 pg (27.0-31.0); MEAN CORPUSCULAR HGB CONC 34.5 g/dL (32.0-36.0); MEAN CORPUSCULAR VOLUME 90.3 fL (81.0-99.0); MEAN PLATELET VOLUME 9.2 fL (7.9-10.8); MONOCYTES # (AUTO) 0.5 10^3/uL (0.0-1.0); MONOCYTES % (AUTO) 6.7 %; NEUTROPHILS # (AUTO) 4.7 10^3/uL (1.5-6.6); PLT - PLATELET COUNT 344 10^3/uL (130-450); RED BLOOD COUNT 3.92 10^6/uL (4.20-5.40); RED CELL DISTRIBUTION WIDTH 12.3 % (12.0-15.0); WHITE BLOOD COUNT 7.5 x10^3/uL (4.8-10.8)
[2020-02-22 15:59] LABS: ALBUMIN 4.1 g/dL (3.2-5.5); ALBUMIN/GLOBULIN RATIO 1.3 (1.0-2.2); ALKALINE PHOSPHATASE 53 IU/L (42-121); ALT ALANINE AMINOTRANSFERASE 29 IU/L (10-60); AST ASPARTATE AMINOTRANSFERASE 22 IU/L (10-42); BILIRUBIN,TOTAL 0.6 mg/dL (0.2-1.0); BUN - BLOOD UREA NITROGEN 14 mg/dL (6-20); CARBON DIOXIDE - CO2 26 mmol/L (21-32); CHLORIDE 106 mmol/L (101-111); CHOL/HDL RATIO 4.5 (<4.4); CHOLESTEROL 207 mg/dL; CREATININE 0.8 mg/dL (0.4-1.0); GLUCOSE 89 mg/dL (70-100); HDL CHOLESTEROL 46 mg/dL; LDL CHOLESTEROL,CALCULATED 133 mg/dL; LDL/HDL RATIO 2.9 (<4.4); SODIUM 140 mmol/L (135-145); TOTAL PROTEIN 7.3 g/dL (6.7-8.2); VLDL CHOLESTEROL 28 mg/dL
[2020-02-22 17:20] LABS: FREE T4 (FREE THYROXINE) 1.01 ng/dL (0.58-1.64)
== END 2020-02-22 12:19 | disposition home or self-care (01) ==
LOC: LAB.S 12:18
PROVIDERS: ATTEND Registered Nurse
DX: K75.81 Nonalcoholic steatohepatitis (NASH) (principal); E88.81 Metabolic syndrome and other insulin resistance; E28.2 Polycystic ovarian syndrome; E03.9 Hypothyroidism, unspecified; R51.9 Headache, unspecified
CPT/HCPCS: 36415; 80053; 80061; 83036; 83721; 84439; 84443; 85025

== ENCOUNTER 2020-06-13 11:00 | Emergency (ER) | payer BC, OTHER ==
[2020-06-13 11:33] LABS: BASOPHILS # (AUTO) 0.1 10^3/uL (0.0-0.1); BASOPHILS % (AUTO) 0.6 %; EOSINOPHILS # (AUTO) 0.3 10^3/uL (0.0-0.7); EOSINOPHILS % (AUTO) 2.2 %; HGB - HEMOGLOBIN 13.1 g/dL (12.0-16.0); LYMPHOCYTES # (AUTO) 2.6 10^3/uL (1.5-3.5); LYMPHOCYTES % (AUTO) 20.4 %; MEAN CORPUSCULAR HEMOGLOBIN 31.3 pg (27.0-31.0); MEAN CORPUSCULAR HGB CONC 34.2 g/dL (32.0-36.0); MEAN CORPUSCULAR VOLUME 91.4 fL (81.0-99.0); MEAN PLATELET VOLUME 8.8 fL (7.9-10.8); MONOCYTES # (AUTO) 0.9 10^3/uL (0.0-1.0); MONOCYTES % (AUTO) 7.2 %; NEUTROPHILS # (AUTO) 8.9 10^3/uL (1.5-6.6); NEUTROPHILS % (AUTO) 69.2 %; PLT - PLATELET COUNT 289 10^3/uL (130-450); RED BLOOD COUNT 4.19 10^6/uL (4.20-5.40); RED CELL DISTRIBUTION WIDTH 12.8 % (12.0-15.0); WHITE BLOOD COUNT 12.9 x10^3/uL (4.8-10.8)
[2020-06-13 11:36] LABS: GLUCOSE, URINE (UA) NEGATIVE (NEGATIVE); KETONES,URINE (UA) NEGATIVE (NEGATIVE); LEUKOCYTE ESTERASE, URINE MODERATE (NEGATIVE); NITRITE,URINE POSITIVE (NEGATIVE); OCCULT BLOOD,URINE LARGE (NEGATIVE); PROTEIN,URINE 100 mg/dL (NEGATIVE); UROBILINOGEN,URINE 0.2 (NORMAL) E.U./dL (NORMAL)
[2020-06-13 11:41] LABS: BILIRUBIN,URINE NEGATIVE (NEGATIVE); CLARITY,URINE CLOUDY (CLEAR); HCG UR QUAL NEGATIVE; ICTOTEST,URINE NEGATIVE
[2020-06-13] MEDS ORDERED: cefTRIAXone 1 GM in SODIUM CHLORIDE 0.9% MINIBAG 100 ML IV STA (11:46)
[2020-06-13 11:47] LABS: BACTERIA,URINE Moderate /HPF (None Seen); RBC,URINE TNTC /HPF (0-5); SQUAMOUS EPITHELIAL CELL,UR FEW Squamous (<= Few); WBC CLUMPS,URINE PRESENT
[2020-06-13 11:50] LABS: ALBUMIN 4.1 g/dL (3.2-5.5); ALBUMIN/GLOBULIN RATIO 1.2 (1.0-2.2); BILIRUBIN,TOTAL 0.4 mg/dL (0.2-1.0); CALCIUM 9.3 mg/dL (8.5-10.3); CREATININE 0.7 mg/dL (0.4-1.0); TOTAL PROTEIN 7.5 g/dL (6.7-8.2)
[2020-06-13] MEDS ORDERED: KETOROLAC 30 MG/ML VIAL IVP STA (12:03)
[2020-06-13] MEDS ORDERED: SODIUM CHLORIDE 0.9% 1,000 ML IV ONE (12:04)
[2020-06-13] MEDS ORDERED: ACETAMINOPHEN 325 MG TABLET PO STA (13:00)
--- NOTE | 2020-06-13 13:07 | CT Report ---
PROCEDURE: Abdomen/Pelvis WO INDICATIONS: r/o stones TECHNIQUE: Noncontrast 5 mm thick sections acquired from the diaphragms to the symphysis. 5 mm coronal and sagi ttal reformats were then performed. For radiation dose reduction, the following was used: automated exposure control, adjustment of mA and/or kV according to patient size. COMPARISON: CT abdomen pelvis 03/14/2017. FINDINGS: Image quality: Excellent. ABDOMEN: Lung bases: Lung bases are clear. Heart size is normal. Solid organs: Liver is enlarged with mild steatosis. The spleen is normal in size. Gallbladder has been removed Pancreas is normal in contours. No adrenal nodules. Kidneys are normal in size, witho ut hydronephrosis or nephrolithiasis. Simple left renal cyst is noted. Peritoneum and bowel: Unenhanced bowel loops demonstrate normal wall thickness and caliber. No free fluid or air. Nodes and vessels: No retroperitoneal or mesenteric adenopathy by size criteria. Aorta and inferior vena cava are normal in caliber. Miscellaneous: Fat-containing ventral hernia is present. PELVIS: Genitourinary: Bladder wall thickness is normal. Miscellaneous: No inguinal hernias or adenopathy. Bones: No suspicious bony lesions. No vertebral body compression fractures. IMPRESSION: 1. No visualized renal, ureteral or bladder calculi. Reviewed by: Fior Bentley MD on 06/13/2020 1:06 PM [facility] Approved by: Fior Bentley MD on 06/13/2020 1:06 PM PST Station ID: [id number]
[2020-06-13] MEDS ORDERED: HYDROmorphone 1 MG/ML CARPUJECT IVP STA (13:16)
--- NOTE | 2020-06-13 13:19 | ED Physician Documentation ---
PD HPI ABD PAIN - Stated complaint Stated Complaint: FEMAL /BACK PX - Chief complaint Chief Complaint: Abd Pain - History obtained from History obtained from: Patient - Additional information Additional information: 40-year-old woman with history of pcos, high blood pressure hypothyroidism and asthma presents with hematuria, associated with suprapubic aching constant pelvic pain, worse with urination and radiating to the left flank worse than the right flank over the past 2 to 3 days. Subjective chills. Denies abdominal pain, nausea vomiting, diarrhea. No prior history of kidney stones. She has had UTIs in the past but this feels worse. Review of Systems Ten Systems: 10 systems reviewed and negative Constitutional: reports: Chills, Myalgias. denies: Fever GI: reports: Other (suprapubic pain) : reports: Dysuria, Frequency, Hematuria Musculoskeletal: reports: Back pain PD PAST MEDICAL HISTORY - Past Medical History Cardiovascular: Atrial fibrillation, Other Respiratory: Asthma Endocrine/Autoimmune: HyPOthyroidism, Other GI: Other TREE PRUNER: Ovarian cysts, Other : None HEENT: Chronic vision loss Psych: None Musculoskeletal: Scoliosis Derm: None - Past Surgical History Past Surgical History: Yes General: Cholecystectomy, Colonoscopy, EGD /TREE PRUNER: section Derm: Other - Present Medications Home Medications: Ambulatory Orders Medication Instructions Recorded Confirmed Albuterol [Ventolin Hfa] 2 puffs INH Q4H PRN 11/27/14 11/03/18 Levothyroxine [Synthroid] 125 mcg PO DAILY 11/27/14 11/03/18 Multivitamin/Iron/Folic Acid 1 each PO DAILY 11/27/14 11/03/18 [Multi-Day Plus Iron Tablet] lisinopriL [Lisinopril] 5 mg PO DAILY 11/27/14 01/11/18 metFORMIN [Glucophage] 500 mg PO BID 11/27/14 11/03/18 Venlafaxine HCl [Venlafaxine HCl 37.5 mg PO DAILY 05/07/17 11/03/18 ER] Oxycodone HCl/Acetaminophen 1 - 2 each PO Q6H PRN #14 tablet 11/04/18 [Percocet 5-325 mg Tablet] Cefpodoxime Proxetil [Vantin] 200 mg PO Q12H 7 Days #14 tab 06/13/20 - Allergies Allergies/Adverse Reactions: Allergies Allergy/AdvReac Type Severity Reaction Status Date / Time ciprofloxacin [From Cipro] Allergy Anaphylaxis Verified 06/13/20 11:12 morphine Allergy Nausea Verified 06/13/20 11:49 Penicillins Allergy Unknown Verified 06/13/20 11:12 Sulfa (Sulfonamide Allergy Unknown Verified 06/13/20 11:12 Antibiotics) tetanus and diphtheria Allergy Anaphylaxis Verified 11/03/18 22:06 toxoids [tetanus & diphtheria toxoids] amoxicillin AdvReac Unknown Rash Verified 11/03/18 22:06 haloperidol [From Haldol] AdvReac Unknown Hallucinati Verified 11/03/18 22:06 ons haloperidol lactate * AdvReac Unknown Hallucinati Verified 11/03/18 22:06 [From Haldol] ons prochlorperazine edisylate * AdvReac Unknown Hallucinati Verified 11/03/18 22:06 [From Compazine] ons prochlorperazine maleate * AdvReac Unknown Hallucinati Verified 11/03/18 22:06 [From Compazine] ons cephalexin monohydrate * AdvReac Edema Verified 11/03/18 22:06 [From Keflex] - Social History Does the pt smoke?: No Smoking Status: Never smoker Does the pt drink ETOH?: No Does the pt have substance abuse?: No - Immunizations Immunizations are current?: Yes - POLST Patient has POLST: No POLST Status: Full Code PD ED PE NORMAL - Vitals Vital signs reviewed: Yes - General General: Alert and oriented X 3, No acute distress, Well developed/nourished - HEENT HEENT: Atraumatic, PERRL, EOMI - Neck Neck: Supple, no meningeal sign - Cardiac Cardiac: RRR - Respiratory Respiratory: No respiratory distress, Clear bilaterally - Abdomen Abdomen: Non tender, Non distended, Other (Discomfort to suprapubic palpation) - Female Female : Deferred - Rectal Rectal: Deferred - Back Back: Other (Bilateral CVA tenderness) - Derm Derm: Normal color - Extremities Extremities: No deformity - Neuro Neuro: Alert and oriented X 3 - Psych Psych: Normal mood, Normal affect Results - Vitals Vitals: Vital Signs - 24 hr 06/13/20 06/13/20 11:07 13:25 Temperature 36.2 C L Heart Rate 82 73 Respiratory 18 16 Rate Blood Pressure 129/82 H 115/71 O2 Saturation 100 99 Oxygen O2 Source Room air - Labs Labs: Laboratory Tests 06/13/20 06/13/20 06/13/20 11:23 11:23 11:23 WBC 12.9 H RBC 4.19 L Hgb 13.1 Hct 38.3 MCV 91.4 MCH 31.3 H MCHC 34.2 RDW 12.8 Plt Count 289 MPV 8.8 Neut # (Auto) 8.9 H Lymph # (Auto) 2.6 [place] # (Auto) 0.9 Eos # (Auto) 0.3 Baso # (Auto) 0.1 Absolute Nucleated RBC 0.00 Nucleated RBC % 0.0 Sodium 140 Potassium 3.9 Chloride 101 Carbon Dioxide 25 Anion Gap 14.0 H BUN 11 Creatinine 0.7 Estimated GFR (MDRD) 93 Glucose 116 H Calcium 9.3 Total Bilirubin 0.4 AST 32 ALT 52 Alkaline Phosphatase 71 Total Protein 7.5 Albumin 4.1 Globulin 3.4 Albumin/Globulin Ratio 1.2 Lipase 26 Urine Color BROWN Urine Clarity CLOUDY Urine pH 6.0 Ur Specific [place] >=1.030 H Urine Protein 100 H Urine Glucose (UA) NEGATIVE Urine Ketones NEGATIVE Urine Occult Blood LARGE H Urine Nitrite POSITIVE H Urine Bilirubin NEGATIVE Urine Urobilinogen 0.2 (NORMAL) Ur Leukocyte Esterase MODERATE H Urine RBC TNTC H Urine WBC >25 H Urine WBC Clumps PRESENT Ur Squamous Epith Cells FEW Squamous Urine Bacteria Moderate H Ur Microscopic Review INDICATED Urine Culture Comments INDICATED Urine HCG, Qual NEGATIVE Procedures - General procedure General procedure: Bedside stjjt-dw-rarj ultrasound performed to evaluate bilateral kidneys with no signs of hydronephrosis or cysts. PD MEDICAL DECISION MAKING - ED course ED course: 40-year-old woman with history of UTI presents with pyelonephritis. Education given about signs and symptoms for return and strict return precautions were understood by the patient. She will follow up with her primary doctor and will take antibiotics as prescribed. Departure - Departure Disposition: 01 Home, Self Care Clinical Impression: Pyelonephritis Condition: Good Instructions: Pyelonephritis Dc Prescriptions: Cefpodoxime Proxetil [Vantin] 200 mg PO Q12H 7 Days #14 tab Comments: You are seen in the emergency department for pyelonephritis. Take your antibiotics as prescribed and return to the emergency department if you have any new or worsening symptoms. Follow-up with your primary care doctor. Discharge Date/Time: 06/13/20 13:30
[2020-06-13 13:26] VITALS: BP 115/71
== END 2020-06-13 13:30 | disposition home or self-care (01) ==
LOC: ED 11:00
DX: N12 Tubulo-interstitial nephritis, not specified as acute or chronic (principal); I10 Essential (primary) hypertension; E03.9 Hypothyroidism, unspecified; J45.909 Unspecified asthma, uncomplicated
CPT/HCPCS: 36415; 74176; 80053; 81001; 81025; 83690; 85025; 87077; 87086; 87181; 96365; 96375; 99284; A9270; J1170; 81003; 84703

== ENCOUNTER 2020-06-19 08:00 | Outpatient (CLI) | payer BC, OTHER ==
[2020-06-19 16:19] LABS: HGB - HEMOGLOBIN 12.3 g/dL (12.0-16.0); MEAN CORPUSCULAR HGB CONC 33.4 g/dL (32.0-36.0); MEAN CORPUSCULAR VOLUME 92.7 fL (81.0-99.0); MEAN PLATELET VOLUME 9.1 fL (7.9-10.8); RED BLOOD COUNT 3.97 10^6/uL (4.20-5.40); RED CELL DISTRIBUTION WIDTH 12.9 % (12.0-15.0); WHITE BLOOD COUNT 8.4 x10^3/uL (4.8-10.8)
[2020-06-19 17:02] LABS: ALBUMIN 4.2 g/dL (3.2-5.5); ALBUMIN/GLOBULIN RATIO 1.4 (1.0-2.2); BILIRUBIN,TOTAL 0.5 mg/dL (0.2-1.0); CALCIUM 9.1 mg/dL (8.5-10.3); CREATININE 0.7 mg/dL (0.4-1.0); TOTAL PROTEIN 7.2 g/dL (6.7-8.2)
== END 2020-06-19 23:59 | disposition home or self-care (01) ==
LOC: LAB.S 08:00
PROVIDERS: ATTEND Physician Assistant
DX: N12 Tubulo-interstitial nephritis, not specified as acute or chronic (principal)
CPT/HCPCS: 36415; 80053; 85025; 85027; 87086

== ENCOUNTER 2020-06-20 12:42 | Outpatient (CLI) | payer BC, OTHER ==
--- NOTE | 2020-06-21 11:06 | Ultrasound Report ---
LIMITED ULTRASOUND OF RIGHT BREAST: 06/20/2020 CLINICAL: Palpable right breast lump. Comparison is made to exams dated: 06/20/2020 mammogram, 05/26/2018 mammogram, 11/05/2011 mammogram, an d 11/05/2011 ultrasound - [facility]. Color flow and real-time ultrasound of the right breast 1 o'clock region were performed on the areas of interest. There is a benign 0.8 cm x 0.6 cm x 0.7 cm oval cyst in the right breast at 1 o'clock middle depth. This oval cyst is anechoic with a well-defined boundary and posterior acoustic shadowing. This corre lates as palpated and with mammography findings. There are related rim calcifications. Color flow i maging demonstrates that there is no vascularity present. IMPRESSION: BENIGN There is no sonographic evidence of malignancy. The 0.8 cm x 0.6 cm x 0.7 cm oval cyst in the right breast is consistent with an oil cyst and is maegan gn. A 1 year screening mammogram is recommended. This exam was interpreted at Station ID: [id number]. Electronically Signed By: Dylan Barger M.D. ddp/:06/20/2020 13:42:26 Ultrasound BI-RADS: 2 Benign BI-RADS CATEGORY: (2) - 2 RECOMMENDATION: (ANNUAL) - Recommend routine annual screening mammography. [id number] 1 year screening LATERALITY: (B)
--- NOTE | 2020-06-21 11:06 | Mammography Report ---
BILATERAL DIGITAL DIAGNOSTIC MAMMOGRAM 3D/2D: 06/20/2020 CLINICAL: Focal right breast pain. Comparison is made to exams dated: 05/26/2018 mammogram, 11/05/2011 mammogram, and 11/05/2011 ultrasoun d - [facility]. There are scattered fibroglandular elements in both breasts. There is a round low density cyst with a circumscribed margin and rim calcifications in the right kateryna ast at 1 o'clock middle depth. This correlates as palpated. No other significant masses, calcifications, or other findings are seen in either breast. IMPRESSION: INCOMPLETE: NEEDS ADDITIONAL IMAGING EVALUATION The round low density cyst in the right breast is suggestie of an oil cyst. An ultrasound is recommen ded. Ultrasound will be performed immediately following the current exam. This exam was interpreted at Station ID: [id number]. NOTE: For mammograms, a report in lay terms will be sent to the patient. Approximately 15% of breast malignancies will not be visualized mammographically. In the management of a palpable breast mass, a negative mammogram must not discourage biopsy of a clinically suspicious lesion. Electronically Signed By: Dylan Barger M.D. ddp/:06/20/2020 13:33:08 ACR BI-RADS Category 0: Incomplete 3340F PARENCHYMAL PATTERN: (A) - The breast(s) demonstrate(s) scattered fibroglandular densities. BI-RADS CATEGORY: (0) - 0 Ultrasound [id number] Immediate follow-up LATERALITY: (B)
== END 2020-06-20 12:43 | disposition home or self-care (01) ==
LOC: DI 12:42
PROVIDERS: ATTEND Registered Nurse
DX: N60.01 Solitary cyst of right breast (principal)

== ENCOUNTER 2020-09-10 12:34 | Outpatient (CLI) | payer BC, OTHER ==
[2020-09-10 12:49] LABS: BASOPHILS # (AUTO) 0.1 10^3/uL (0.0-0.1); BASOPHILS % (AUTO) 0.9 %; EOSINOPHILS # (AUTO) 0.4 10^3/uL (0.0-0.7); EOSINOPHILS % (AUTO) 5.1 %; HCT - HEMATOCRIT 33.3 % (37.0-47.0); HGB - HEMOGLOBIN 11.4 g/dL (12.0-16.0); LYMPHOCYTES % (AUTO) 26.3 %; MEAN CORPUSCULAR HEMOGLOBIN 31.3 pg (27.0-31.0); MEAN CORPUSCULAR HGB CONC 34.2 g/dL (32.0-36.0); MEAN CORPUSCULAR VOLUME 91.5 fL (81.0-99.0); MEAN PLATELET VOLUME 8.8 fL (7.9-10.8); MONOCYTES # (AUTO) 0.5 10^3/uL (0.0-1.0); MONOCYTES % (AUTO) 6.3 %; NEUTROPHILS # (AUTO) 4.7 10^3/uL (1.5-6.6); PLT - PLATELET COUNT 307 10^3/uL (130-450); RED BLOOD COUNT 3.64 10^6/uL (4.20-5.40); WHITE BLOOD COUNT 7.7 x10^3/uL (4.8-10.8)
[2020-09-10 13:13] LABS: % IRON SATURATION 26 % (20-50); IRON 112 ug/dL (28-170); TOTAL IRON BINDING CAPACITY 438 ug/dL (250-450); TRANSFERRIN 313 mg/dL (192-382)
== END 2020-09-10 12:35 | disposition home or self-care (01) ==
LOC: LAB 12:34
PROVIDERS: ATTEND Registered Nurse
DX: N93.9 Abnormal uterine and vaginal bleeding, unspecified (principal); R53.83 Other fatigue
CPT/HCPCS: 36415; 82728; 83540; 84466; 85025

== ENCOUNTER 2020-09-16 12:09 | Outpatient (CLI) | payer BC, OTHER ==
[2020-09-16 13:10] LABS: % IRON SATURATION 16 % (20-50); IRON 79 ug/dL (28-170); TOTAL IRON BINDING CAPACITY 508 ug/dL (250-450); TRANSFERRIN 363 mg/dL (192-382)
== END 2020-09-16 12:10 | disposition home or self-care (01) ==
LOC: LAB 12:09
PROVIDERS: ATTEND Obstetrics & Gynecology
DX: D64.89 Other specified anemias (principal)
CPT/HCPCS: 36415; 83540; 84466; 85014

== ENCOUNTER 2021-07-17 09:07 | Outpatient (CLI) | payer BC, OTHER ==
[2021-07-17 14:35] LABS: BASOPHILS # (AUTO) 0.1 10^3/uL (0.0-0.1); BASOPHILS % (AUTO) 0.9 %; EOSINOPHILS # (AUTO) 0.2 10^3/uL (0.0-0.7); EOSINOPHILS % (AUTO) 2.4 %; HCT - HEMATOCRIT 35.6 % (37.0-47.0); HGB - HEMOGLOBIN 12.1 g/dL (12.0-16.0); LYMPHOCYTES # (AUTO) 1.9 10^3/uL (1.5-3.5); LYMPHOCYTES % (AUTO) 23.8 %; MEAN CORPUSCULAR HEMOGLOBIN 30.9 pg (27.0-31.0); MEAN PLATELET VOLUME 9.4 fL (7.9-10.8); MONOCYTES # (AUTO) 0.6 10^3/uL (0.0-1.0); MONOCYTES % (AUTO) 7.1 %; NEUTROPHILS # (AUTO) 5.3 10^3/uL (1.5-6.6); NEUTROPHILS % (AUTO) 65.6 %; PLT - PLATELET COUNT 309 10^3/uL (130-450); RED BLOOD COUNT 3.91 10^6/uL (4.20-5.40)
[2021-07-17 15:20] LABS: ALBUMIN 3.7 g/dL (3.2-5.5); ALBUMIN/GLOBULIN RATIO 1.2 (1.0-2.2); ALKALINE PHOSPHATASE 51 IU/L (42-121); ALT ALANINE AMINOTRANSFERASE 45 IU/L (10-60); AST ASPARTATE AMINOTRANSFERASE 28 IU/L (10-42); BILIRUBIN,TOTAL 0.5 mg/dL (0.2-1.0); BUN - BLOOD UREA NITROGEN 14 mg/dL (6-20); CALCIUM 9.1 mg/dL (8.5-10.3); CARBON DIOXIDE - CO2 23 mmol/L (21-32); CHLORIDE 103 mmol/L (101-111); CHOL/HDL RATIO 4.3 (<4.4); CHOLESTEROL 169 mg/dL; CREATININE 0.7 mg/dL (0.4-1.0); GFR - MDRD 93 (>89); GLUCOSE 121 mg/dL (70-100); HDL CHOLESTEROL 39 mg/dL; LDL CHOLESTEROL,CALCULATED 99 mg/dL; LDL/HDL RATIO 2.5 (<4.4); SODIUM 135 mmol/L (135-145); TOTAL PROTEIN 6.9 g/dL (6.7-8.2); TRIGLYCERIDES 156 mg/dL; VLDL CHOLESTEROL 31 mg/dL
[2021-07-17 15:40] LABS: THYROID STIMULATING HORMONE 0.04 uIU/mL (0.34-5.60)
[2021-07-17 16:41] LABS: FREE T4 (FREE THYROXINE) 0.91 ng/dL (0.58-1.64)
== END 2021-07-17 09:08 | disposition home or self-care (01) ==
LOC: LAB.S 09:07
PROVIDERS: ATTEND Registered Nurse
DX: E88.81 Metabolic syndrome and other insulin resistance (principal); E03.9 Hypothyroidism, unspecified; E06.3 Autoimmune thyroiditis; D50.9 Iron deficiency anemia, unspecified
CPT/HCPCS: 36415; 80053; 80061; 83721; 84439; 84443; 85025

== ENCOUNTER 2022-10-27 14:12 | Outpatient (CLI) | payer BC, OTHER ==
[2022-10-27 19:33] LABS: BASOPHILS # (AUTO) 0.1 10^3/uL (0.0-0.1); BASOPHILS % (AUTO) 1.1 %; EOSINOPHILS # (AUTO) 0.2 10^3/uL (0.0-0.7); EOSINOPHILS % (AUTO) 1.8 %; HCT - HEMATOCRIT 39.3 % (37.0-47.0); HGB - HEMOGLOBIN 13.5 g/dL (12.0-16.0); LYMPHOCYTES # (AUTO) 2.6 10^3/uL (1.5-3.5); LYMPHOCYTES % (AUTO) 30.7 %; MEAN CORPUSCULAR HEMOGLOBIN 30.8 pg (27.0-31.0); MEAN CORPUSCULAR HGB CONC 34.4 g/dL (32.0-36.0); MEAN CORPUSCULAR VOLUME 89.5 fL (81.0-99.0); MEAN PLATELET VOLUME 9.1 fL (7.9-10.8); MONOCYTES # (AUTO) 0.6 10^3/uL (0.0-1.0); MONOCYTES % (AUTO) 6.7 %; NEUTROPHILS # (AUTO) 4.9 10^3/uL (1.5-6.6); NEUTROPHILS % (AUTO) 59.5 %; PLT - PLATELET COUNT 340 10^3/uL (130-450); RED BLOOD COUNT 4.39 10^6/uL (4.20-5.40); RED CELL DISTRIBUTION WIDTH 12.4 % (12.0-15.0); WHITE BLOOD COUNT 8.3 x10^3/uL (4.8-10.8)
[2022-10-27 20:23] LABS: THYROID STIMULATING HORMONE 0.91 uIU/mL (0.34-5.60)
[2022-10-27 20:29] LABS: ALBUMIN 4.1 g/dL (3.2-5.5); ALBUMIN/GLOBULIN RATIO 1.1 (1.0-2.2); ALKALINE PHOSPHATASE 54 IU/L (42-121); ALT ALANINE AMINOTRANSFERASE 62 IU/L (10-60); AST ASPARTATE AMINOTRANSFERASE 44 IU/L (10-42); BILIRUBIN,TOTAL 0.8 mg/dL (0.2-1.0); BUN - BLOOD UREA NITROGEN 13 mg/dL (6-20); CARBON DIOXIDE - CO2 26 mmol/L (21-32); CHLORIDE 107 mmol/L (101-111); CHOL/HDL RATIO 4.7 (<4.4); CHOLESTEROL 213 mg/dL; CREATININE 0.9 mg/dL (0.4-1.0); GFR - MDRD 69 (>89); GLUCOSE 95 mg/dL (70-100); HDL CHOLESTEROL 45 mg/dL; LDL CHOLESTEROL,CALCULATED 147 mg/dL; LDL/HDL RATIO 3.3 (<4.4); POTASSIUM 3.8 mmol/L (3.5-5.0); SODIUM 140 mmol/L (135-145); TOTAL PROTEIN 7.7 g/dL (6.7-8.2); TRIGLYCERIDES 105 mg/dL; VLDL CHOLESTEROL 21 mg/dL
[2022-10-27 20:58] LABS: ESTIMATED AVERAGE GLUCOSE 108 mg/dL (70-100); HEMOGLOBIN A1c% 5.4 % (4.27-6.07)
== END 2022-10-27 14:13 | disposition home or self-care (01) ==
LOC: LAB.S 14:12
PROVIDERS: ATTEND Registered Nurse
DX: D50.9 Iron deficiency anemia, unspecified (principal); E06.3 Autoimmune thyroiditis; Z13.220 Encounter for screening for lipoid disorders; E88.81 Metabolic syndrome and other insulin resistance; R73.9 Hyperglycemia, unspecified
CPT/HCPCS: 36415; 80053; 80061; 83036; 83721; 84443; 85025

== ENCOUNTER 2023-07-21 21:51 | Emergency (ER) | payer BC, OTHER ==
--- NOTE | 2023-07-21 23:25 | XRAY Report ---
PROCEDURE: Chest 2V INDICATIONS: hemoptysis TECHNIQUE: 2 views of the chest were acquired. COMPARISON: Chest radiograph 05/31/2022. FINDINGS: Surgical changes and devices: None. Lungs and pleura: No pleural effusions or pneumothorax. Lungs are clear. Mediastinum: Mediastinal contours appear normal. Heart size is normal. Bones and chest wall: No suspicious bony lesions. Overlying soft tissues appear unremarkable. IMPRESSION: No acute cardiopulmonary process. Reviewed by: Jamar Waldron MD on 07/21/2023 11:24 PM PDT Approved by: Jamar Waldron MD on 07/21/2023 11:24 PM PDT Station ID: [id number]
--- NOTE | 2023-07-21 23:51 | ED Physician Documentation ---
History of Present Illness - Stated complaint Stated Complaint: COUGHING UP BLOOD - Chief complaint Chief Complaint: Resp - History obtained from History obtained from: Patient - Additonal information Additional information: 43yF with pmh pcos, on antihypertensive, mildly low hdl / borderline high ldl on simvastatin, asthma, hypothyroidism, p/w cp constant over past 5 days, waxing/wanning, with episode of hemoptysis tonight . developed sore throat and burping after. denies SOA, uri symptoms, fever, leg swelling, hx of hormone use. denies smoking, etoh, FH HI. PD PAST MEDICAL HISTORY - Past Medical History Past Medical History: Yes Cardiovascular: Atrial fibrillation, Other Respiratory: Asthma Endocrine/Autoimmune: HyPOthyroidism, Other GI: Other SCIENTIFIC DIRECTOR: Ovarian cysts, Other : None HEENT: Chronic vision loss Psych: None Musculoskeletal: Scoliosis Derm: None - Past Surgical History Past Surgical History: Yes General: Cholecystectomy, Colonoscopy, EGD /SCIENTIFIC DIRECTOR: section Derm: Other - Present Medications Home Medications: Ambulatory Orders Medication Instructions Recorded Confirmed Albuterol [Ventolin Hfa] 2 puffs INH Q4H PRN 11/27/14 07/21/23 Multivitamin/Iron/Folic Acid 1 each PO DAILY 11/27/14 07/21/23 [Multi-Day Plus Iron Tablet] lisinopriL [Lisinopril] 5 mg PO DAILY 11/27/14 07/21/23 metFORMIN [Glucophage] 500 mg PO BID 11/27/14 07/21/23 Cranberry Fruit Extract [Cranberry] 1 tab PO DAILY 07/21/23 07/21/23 Levothyroxine Sodium [Synthroid] 137 mcg PO DAILY 07/21/23 07/21/23 Propranolol ER [Inderal LA] 60 mg PO DAILY 07/21/23 07/21/23 Rizatriptan Benzoate [Rizatriptan] 10 mg PO PRN PRN 07/21/23 07/21/23 Simvastatin [Zocor] 20 mg PO DAILY 07/21/23 07/21/23 Venlafaxine HCl [Effexor Xr] 150 mg PO DAILY 07/21/23 07/21/23 - Allergies Allergies/Adverse Reactions: Allergies Allergy/AdvReac Type Severity Reaction Status Date / Time ciprofloxacin [From Cipro] Allergy Anaphylaxis Verified 07/21/23 22:11 morphine Allergy Nausea Verified 07/21/23 22:11 Penicillins Allergy Unknown Verified 07/21/23 22:11 Sulfa (Sulfonamide Allergy Unknown Verified 07/21/23 22:11 Antibiotics) tetanus and diphtheria Allergy Anaphylaxis Verified 07/21/23 22:11 toxoids [tetanus & diphtheria toxoids] amoxicillin AdvReac Unknown Rash Verified 07/21/23 22:11 haloperidol [From Haldol] AdvReac Unknown Hallucinati Verified 07/21/23 22:11 ons haloperidol lactate * AdvReac Unknown Hallucinati Verified 07/21/23 22:11 [From Haldol] ons prochlorperazine edisylate * AdvReac Unknown Hallucinati Verified 07/21/23 22:11 [From Compazine] ons prochlorperazine maleate * AdvReac Unknown Hallucinati Verified 07/21/23 22:11 [From Compazine] ons cephalexin monohydrate * AdvReac Edema Verified 07/21/23 22:11 [From Keflex] - Social History Does the pt smoke?: No Smoking Status: Never smoker Does the pt drink ETOH?: No Does the pt have substance abuse?: No - Immunizations Immunizations are current?: Yes - POLST Patient has POLST: No POLST Status: Full Code PD ED PE NORMAL - Vitals Vital signs reviewed: Yes - General General: Alert and oriented X 3, No acute distress, Well developed/nourished - HEENT HEENT: Atraumatic, PERRL, EOMI, Moist mucous membranes, Pharynx benign - Neck Neck: Supple, no meningeal sign - Cardiac Cardiac: RRR - Respiratory Respiratory: No respiratory distress, Clear bilaterally - Abdomen Abdomen: Non tender, Non distended - Neuro Neuro: Alert and oriented X 3, cold rolling machine setter 2-12 intact, No motor deficit, No sensory deficit, Normal speech Results - Vitals Vitals: Vital Signs - 24 hr 07/21/23 22:06 Temperature 36.4 C L Heart Rate 78 Respiratory 16 Rate Blood Pressure 139/84 H O2 Saturation 100 Oxygen O2 Source Room air - EKG (time done) 0012 EKG releavant findings:: EKG personally interpreted by author of this note. Relevant findings are: Rate: Rate (enter#) (65) Rhythm: NSR [place]: Normal Intervals: Prolonged MT QRS: Normal Ischemia: Normal ST segments - Labs Labs: Laboratory Tests 07/21/23 07/22/23 07/22/23 23:45 00:05 00:28 WBC 9.0 RBC 4.06 L Hgb 12.7 Hct 37.7 MCV 92.9 MCH 31.3 H MCHC 33.7 RDW 12.8 Plt Count 312 MPV 9.6 Neut # (Auto) 5.3 Lymph # (Auto) 2.7 [place] # (Auto) 0.7 Eos # (Auto) 0.2 Baso # (Auto) 0.1 Absolute Nucleated RBC 0.00 Nucleated RBC % 0.0 D-Dimer 235.9 Sodium Potassium Chloride BUN Creatinine Estimated GFR (MDRD) Glucose Calcium Total Bilirubin AST ALT Alkaline Phosphatase Troponin I High Sens Total Protein Albumin Globulin Albumin/Globulin Ratio Lipase Nasal Adenovirus (PCR) NOT DETECTED Nasal B. parapertussis DNA (PCR) NOT DETECTED Nasal Coronavir 229E PCR NOT DETECTED Nasal Coronavir HKU1 PCR NOT DETECTED Nasal Coronavir NL63 PCR NOT DETECTED Nasal Coronavir OC43 PCR NOT DETECTED Nasal Enterovir/Rhinovir PCR NOT DETECTED Nasal Influenza B PCR NOT DETECTED Nasal Influenza A PCR NOT DETECTED Nasal Parainfluen 1 PCR NOT DETECTED Nasal Parainfluen 2 PCR NOT DETECTED Nasal Parainfluen 3 PCR NOT DETECTED Nasal Parainfluen 4 PCR NOT DETECTED Nasal RSV (PCR) NOT DETECTED Nasal B.pertussis DNA PCR NOT DETECTED Nasal C.pneumoniae (PCR) NOT DETECTED [place] Human Metapneumo PCR NOT DETECTED Nasal M.pneumoniae (PCR) NOT DETECTED Nasal SARS-CoV-2 (PCR) NOT DETECTED 07/22/23 00:28 WBC RBC Hgb Hct MCV MCH MCHC RDW Plt Count MPV Neut # (Auto) Lymph # (Auto) [place] # (Auto) Eos # (Auto) Baso # (Auto) Absolute Nucleated RBC Nucleated RBC % D-Dimer Sodium 139 Potassium 3.5 Chloride 104 BUN 14 Creatinine 0.8 Estimated GFR (MDRD) 79 L Glucose 131 H Calcium 9.4 Total Bilirubin 0.3 AST 74 H ALT 111 H Alkaline Phosphatase 57 Troponin I High Sens 2.3 Total Protein 6.7 Albumin 4.0 Globulin 2.7 Albumin/Globulin Ratio 1.5 Lipase 12 Nasal Adenovirus (PCR) Nasal B. parapertussis DNA (PCR) Nasal Coronavir 229E PCR Nasal Coronavir HKU1 PCR Nasal Coronavir NL63 PCR Nasal Coronavir OC43 PCR Nasal Enterovir/Rhinovir PCR Nasal Influenza B PCR Nasal Influenza A PCR Nasal Parainfluen 1 PCR Nasal Parainfluen 2 PCR Nasal Parainfluen 3 PCR Nasal Parainfluen 4 PCR Nasal RSV (PCR) Nasal B.pertussis DNA PCR Nasal C.pneumoniae (PCR) [place]ector Human Metapneumo PCR Nasal M.pneumoniae (PCR) Nasal SARS-CoV-2 (PCR) PD Medical Decision Making - ED course ED course: 43-year-old woman with history of hypothyroid, PCOS, on blood pressure meds and simvastatin p/w isolated hemoptysis tonight along with 5 days of dull constant cp. ekg shows first degree avb (MT 242) but otherwise benign. cxr No cardiopulmonary disease per my wet read and outside radiologist interpretation. cbc, abdominal panel, trop, d dimer ordered. Everything was normal aside from mild azotemia, which can be rechecked routinely. d/w patient and return precautions given. plan to f/u with pcp. Departure - Departure Disposition: 01 Home, Self Care Clinical Impression: Hemoptysis Condition: Stable Instructions: ED Hemoptysis Comments: You were seen in the emergency department for coughing up blood. Your chest xray and labwork was all normal. Your nose swab did not detect any viruses. Your d dimer was normal, meaning you do not have a pulmonary embolism. Please follow-up with your primary care provider and return to the emergency department if you have any new or worsening symptoms or other concerns. Forms: PCP List
[2023-07-22 00:15] LABS: BASOPHILS # (AUTO) 0.1 10^3/uL (0.0-0.1); BASOPHILS % (AUTO) 0.9 %; EOSINOPHILS # (AUTO) 0.2 10^3/uL (0.0-0.7); EOSINOPHILS % (AUTO) 2.6 %; HCT - HEMATOCRIT 37.7 % (37.0-47.0); HGB - HEMOGLOBIN 12.7 g/dL (12.0-16.0); LYMPHOCYTES # (AUTO) 2.7 10^3/uL (1.5-3.5); LYMPHOCYTES % (AUTO) 30.3 %; MEAN CORPUSCULAR HEMOGLOBIN 31.3 pg (27.0-31.0); MEAN CORPUSCULAR HGB CONC 33.7 g/dL (32.0-36.0); MEAN CORPUSCULAR VOLUME 92.9 fL (81.0-99.0); MEAN PLATELET VOLUME 9.6 fL (7.9-10.8); MONOCYTES # (AUTO) 0.7 10^3/uL (0.0-1.0); MONOCYTES % (AUTO) 7.6 %; NEUTROPHILS # (AUTO) 5.3 10^3/uL (1.5-6.6); NEUTROPHILS % (AUTO) 58.3 %; PLT - PLATELET COUNT 312 10^3/uL (130-450); RED BLOOD COUNT 4.06 10^6/uL (4.20-5.40); RED CELL DISTRIBUTION WIDTH 12.8 % (12.0-15.0)
[2023-07-22 00:51] LABS: TROPONIN I HIGH SENSITIVITY 2.3 ng/L (2.3-14.8)
[2023-07-22 00:56] LABS: ALBUMIN/GLOBULIN RATIO 1.5 (1.0-2.2); BILIRUBIN,TOTAL 0.3 mg/dL (0.2-1.0); CALCIUM 9.4 mg/dL (8.5-10.3); POTASSIUM 3.5 mmol/L (3.5-4.5); TOTAL PROTEIN 6.7 g/dL (6.4-8.9)
[2023-07-22 00:59] LABS: B. PARAPERTUSSIS- RESP PCR PAN NOT DETECTED; B. PERTUSSIS- RESP PCR PANEL NOT DETECTED; C. PNEUMONIAE- RESP PCR PANEL NOT DETECTED; CORONAVIRUS 229E-RESP PCR NOT DETECTED; CORONAVIRUS HKU1-RESP PCR NOT DETECTED; CORONAVIRUS NL63-RESP PCR NOT DETECTED; CORONAVIRUS OC43-RESP PCR NOT DETECTED; HUMAN METAPNEUMOVIRUS NOT DETECTED; INFLUENZA A- RESP PCR PANEL NOT DETECTED; INFLUENZA B - RESP PCR PANEL NOT DETECTED; M. PNEUMONIAE- RESP PCR PANEL NOT DETECTED; PARAINFLUENZA VIRUS 1 NOT DETECTED; PARAINFLUENZA VIRUS 2 NOT DETECTED; PARAINFLUENZA VIRUS 3 NOT DETECTED; PARAINFLUENZA VIRUS 4 NOT DETECTED; RHINOVIRUS/ENTEROVIRUS NOT DETECTED; RSV- RESP PCR PANEL NOT DETECTED; SARS-CoV-2 -RESP PCR PANEL NOT DETECTED
[2023-07-22 02:02] LABS: CREATININE 0.8 mg/dL (0.6-1.3)
[2023-07-22 02:18] VITALS: BP 105/62; O2SAT 98
== END 2023-07-22 02:16 | disposition home or self-care (01) ==
LOC: ED 21:51
DX: R04.2 Hemoptysis (principal); R79.89 Other specified abnormal findings of blood chemistry; I48.91 Unspecified atrial fibrillation; E03.9 Hypothyroidism, unspecified; Z79.899 Other long term (current) drug therapy; Z79.84 Long term (current) use of oral hypoglycemic drugs
CPT/HCPCS: 36415; 80053; 83690; 84484; 85025; 85379; 87633; 93005; 99283; 99284

== ENCOUNTER 2023-11-07 08:00 | Outpatient (CLI) | payer BC, OTHER ==
[2023-11-07 07:46] LABS: BASOPHILS # (AUTO) 0.1 10^3/uL (0.0-0.1); EOSINOPHILS # (AUTO) 0.2 10^3/uL (0.0-0.7); EOSINOPHILS % (AUTO) 1.8 %; HCT - HEMATOCRIT 39.2 % (37.0-47.0); HGB - HEMOGLOBIN 13.6 g/dL (12.0-16.0); LYMPHOCYTES % (AUTO) 26.6 %; MEAN CORPUSCULAR HEMOGLOBIN 31.6 pg (27.0-31.0); MEAN CORPUSCULAR HGB CONC 34.7 g/dL (32.0-36.0); MEAN PLATELET VOLUME 9.3 fL (7.9-10.8); MONOCYTES # (AUTO) 0.8 10^3/uL (0.0-1.0); MONOCYTES % (AUTO) 6.7 %; NEUTROPHILS # (AUTO) 7.1 10^3/uL (1.5-6.6); NEUTROPHILS % (AUTO) 63.4 %; PLT - PLATELET COUNT 368 10^3/uL (130-450); RED BLOOD COUNT 4.31 10^6/uL (4.20-5.40); RED CELL DISTRIBUTION WIDTH 12.3 % (12.0-15.0); WHITE BLOOD COUNT 11.2 x10^3/uL (4.8-10.8)
[2023-11-07 08:14] LABS: ALBUMIN 4.6 g/dL (3.2-5.5); ALBUMIN/GLOBULIN RATIO 1.4 (1.0-2.2); ALKALINE PHOSPHATASE 79 IU/L (42-121); ALT ALANINE AMINOTRANSFERASE 124 IU/L (10-60); AST ASPARTATE AMINOTRANSFERASE 80 IU/L (10-42); BILIRUBIN,TOTAL 0.3 mg/dL (0.2-1.0); BUN - BLOOD UREA NITROGEN 16 mg/dL (6-20); CALCIUM 9.6 mg/dL (8.5-10.3); CARBON DIOXIDE - CO2 25 mmol/L (21-32); CHLORIDE 103 mmol/L (101-111); CHOL/HDL RATIO 3.7 (<4.4); CHOLESTEROL 165 mg/dL; CREATININE 0.9 mg/dL (0.6-1.3); GFR - MDRD 69 (>89); GLUCOSE 122 mg/dL (74-104); HDL CHOLESTEROL 45 mg/dL; LDL CHOLESTEROL,CALCULATED 76 mg/dL; LDL/HDL RATIO 1.7 (<4.4); POTASSIUM 4.4 mmol/L (3.5-4.5); SODIUM 136 mmol/L (135-145); TOTAL PROTEIN 7.8 g/dL (6.4-8.9); TRIGLYCERIDES 218 mg/dL (48-352); VLDL CHOLESTEROL 44 mg/dL
[2023-11-07 08:28] LABS: THYROID STIMULATING HORMONE 0.26 uIU/mL (0.34-5.60)
[2023-11-07 09:24] LABS: ESTIMATED AVERAGE GLUCOSE 117 mg/dL (70-100); HEMOGLOBIN A1c% 5.7 % (4.27-6.07)
== END 2023-11-07 23:59 | disposition home or self-care (01) ==
LOC: LAB 08:00
PROVIDERS: ATTEND Registered Nurse
DX: R73.9 Hyperglycemia, unspecified (principal); Z13.220 Encounter for screening for lipoid disorders; Z13.29 Encounter for screening for other suspected endocrine disorder; Z13.228 Encounter for screening for other metabolic disorders; Z13.0 Encounter for screening for diseases of the blood and blood-forming organs and certain disorders involving the immune mechanism
CPT/HCPCS: 36415; 80053; 80061; 83036; 83721; 84443; 85025

== ENCOUNTER 2023-11-08 07:00 | Outpatient (CLI) | payer BC, OTHER ==
[2023-11-08 20:03] LABS: BILIRUBIN,URINE NEGATIVE (NEGATIVE); GLUCOSE, URINE (UA) NEGATIVE (NEGATIVE); KETONES,URINE (UA) NEGATIVE (NEGATIVE); LEUKOCYTE ESTERASE, URINE NEGATIVE (NEGATIVE); NITRITE,URINE NEGATIVE (NEGATIVE); OCCULT BLOOD,URINE NEGATIVE (NEGATIVE); PROTEIN,URINE NEGATIVE (NEGATIVE); UROBILINOGEN,URINE 1 (NORMAL) E.U./dL (NORMAL)
[2023-11-08 20:17] LABS: AMORPHOUS SEDIMENT,UR Marked /LPF; BACTERIA,URINE None Seen /HPF (None Seen); CLARITY,URINE TURBID (CLEAR); RBC,URINE None Seen /HPF (0-5); SQUAMOUS EPITHELIAL CELL,UR RARE Squamous (<= Few); WBC,URINE 0-3 /HPF (0-5)
== END 2023-11-08 23:59 | disposition home or self-care (01) ==
LOC: LAB.S 07:00
PROVIDERS: ATTEND Registered Nurse
DX: D72.829 Elevated white blood cell count, unspecified (principal)
CPT/HCPCS: 81001; 87086

== ENCOUNTER 2023-11-26 07:03 | Outpatient (CLI) | payer BC, OTHER ==
[2023-11-26] MEDS ORDERED: DIATRIZOATE MEGLU/DIATRIZO SOD 30 ML BOTTLE PO ONE (07:12)
[2023-11-26] MEDS ORDERED: iohexoL-300 100 ML VIAL ONE (07:12)
[2023-11-26] MEDS: iohexoL-300 100 ML VIAL IVP ONE (09:11)
[2023-11-26] MEDS: DIATRIZOATE MEGLU/DIATRIZO SOD 30 ML BOTTLE PO ONE (09:11)
--- NOTE | 2023-11-26 13:37 | CT Report ---
PROCEDURE: Abdomen W INDICATIONS: Abdominal pain. CONTRAST: 100ml omni 300 TECHNIQUE: CT scan of the abdomen was performed. Intravenous contrast media was administered. Images recorded an d evaluated at appropriate window settings. Reformats: coronal and sagittal. For radiation dose reduc tion, the following was used: automated exposure control, adjustment of mA and/or kV according to pat ient size. COMPARISON: 06/13/2020 FINDINGS: Image quality: Diagnostic. Lower chest: Unremarkable. Liver: Hepatic steatosis. Gallbladder: Surgically absent. Biliary tree: No intrahepatic or extrahepatic dilation, accounting for age. Spleen: No splenomegaly. Pancreas: No pancreatic ductal dilation. Adrenals: No adrenal nodule. Kidneys and ureters: No hydronephrosis. No renal cystic lesion which requires follow up. No solid mas s. Benign left renal cyst measuring 1 cm. Stomach, bowel and peritoneum: No gastric or small bowel dilation. No abnormal wall thickening. No pa thologic free fluid. Normal appendix. Lymph nodes: No central or retroperitoneal adenopathy. Vessels: No infrarenal aortic aneurysm. Patent portal vein. Bones: No aggressive osseous abnormality. Other: Small focal hernia containing fat. IMPRESSION: No acute abnormality. Hepatic steatosis. Small umbilical hernia containing fat. Reviewed by: Zaire Owens MD on 11/26/2023 12:36 PM [id number] Approved by: Zaire Owens MD on 11/26/2023 12:36 PM [facility] Station ID: [id number]
== END 2023-11-26 07:04 | disposition home or self-care (01) ==
LOC: DI 07:03
PROVIDERS: ATTEND Registered Nurse
DX: R14.0 Abdominal distension (gaseous) (principal); R10.9 Unspecified abdominal pain; K76.0 Fatty (change of) liver, not elsewhere classified; K42.9 Umbilical hernia without obstruction or gangrene
CPT/HCPCS: 74160; Q9963; Q9967

== ENCOUNTER 2023-12-01 06:48 | Outpatient (CLI) | payer BC, OTHER ==
--- NOTE | 2023-12-01 18:36 | Ultrasound Report ---
PROCEDURE: Abdomen Complete INDICATIONS: ABD PAIN TECHNIQUE: Real-time scanning was performed of the abdominal and retroperitoneal organs, with image documentatio n. COMPARISON: 11/26/2023. FINDINGS: Liver: The liver is enlarged measuring 19.8 cm. The liver is increased in echogenicity, most consist ent with hepatic steatosis. Doppler: Main portal vein is patent, with luminal diameter of 12 mm (normal of 13-16 mm). On pulse Doppler interrogation, portal vein flow direction is hepatopedal. Hepatic artery Doppler waveforms d emonstrate normal systolic upstrokes. Normal hepatic artery velocities of 92 cm/s. Hepatic veins are all patent, with expected triphasic Doppler waveforms. Gallbladder: Surgically absent. Biliary ducts: Intrahepatic bile ducts are non-dilated. Extrahepatic bile duct caliber measures 5 m m. Normal is 6-7 mm or less in diameter, or 10 mm or less post-cholecystectomy. Pancreas: Visualized portions of the pancreas are sonographically normal. Tail was not well-seen sec ondary to overlying bowel gas. Spleen: Spleen is normal in size and homogeneous in echotexture. Kidneys: Kidneys are normal in size and echotexture. Right kidney measures 12.2 cm long; left kidne y measures 12.4 cm long. No hydronephrosis or nephrolithiasis. No solid masses. No complex renal cy stic lesions which require follow-up. Left simple renal cyst measuring 1.9 cm. Aorta: Visualized aorta is normal in caliber at less than 3 cm. Iliacs: Not seen IVC: Intrahepatic inferior vena cava is patent. Miscellaneous: No free abdominal fluid. IMPRESSION: 1.Liver is enlarged and increased in echogenicity, consistent with hepatic steatosis. Normal Doppler interrogation of the liver. 2.Status post cholecystectomy. Reviewed by: Brad Sharma MD on 12/01/2023 6:35 PM PDT Approved by: Brad Sharma MD on 12/01/2023 6:35 PM PDT Station ID: [id number]
--- NOTE | 2023-12-01 18:38 | Ultrasound Report ---
PROCEDURE: Doppler Complete INDICATIONS: ELEVATED LFTS, HEMATEMESIS, STEATOSIS OF LIVER TECHNIQUE: Real-time scanning was performed of the abdominal and retroperitoneal organs with Doppler interrogati on, with image documentation. COMPARISON: 11/26/2023. FINDINGS: Please note, images are under ultrasound abdomen accession from the same day. Liver: The liver is enlarged measuring 19.8 cm. The liver is increased in echogenicity, most consist ent with hepatic steatosis. Doppler: Main portal vein is patent, with luminal diameter of 12 mm (normal of 13-16 mm). On pulse Doppler interrogation, portal vein flow direction is hepatopedal. Hepatic artery Doppler waveforms d emonstrate normal systolic upstrokes. Normal hepatic artery velocities of 92 cm/s. Hepatic veins are all patent, with expected triphasic Doppler waveforms. Gallbladder: Surgically absent. Biliary ducts: Intrahepatic bile ducts are non-dilated. Extrahepatic bile duct caliber measures 5 m m. Normal is 6-7 mm or less in diameter, or 10 mm or less post-cholecystectomy. Pancreas: Visualized portions of the pancreas are sonographically normal. Tail was not well-seen sec ondary to overlying bowel gas. Spleen: Spleen is normal in size and homogeneous in echotexture. Kidneys: Kidneys are normal in size and echotexture. Right kidney measures 12.2 cm long; left kidne y measures 12.4 cm long. No hydronephrosis or nephrolithiasis. No solid masses. No complex renal cy stic lesions which require follow-up. Left simple renal cyst measuring 1.9 cm. Aorta: Visualized aorta is normal in caliber at less than 3 cm. Iliacs: Not seen IVC: Intrahepatic inferior vena cava is patent. Miscellaneous: No free abdominal fluid. IMPRESSION: 1.Liver is enlarged and increased in echogenicity, consistent with hepatic steatosis. Normal Doppler interrogation of the liver. 2.Status post cholecystectomy. Reviewed by: Brad Sharma MD on 12/01/2023 6:37 PM PDT Approved by: Brad Sharma MD on 12/01/2023 6:37 PM PDT Station ID: [id number]
== END 2023-12-01 06:49 | disposition home or self-care (01) ==
LOC: DI 06:48
PROVIDERS: ATTEND Registered Nurse
DX: R74.01 Elevation of levels of liver transaminase levels (principal); K92.0 Hematemesis; R53.83 Other fatigue; D72.829 Elevated white blood cell count, unspecified; K76.0 Fatty (change of) liver, not elsewhere classified; R16.0 Hepatomegaly, not elsewhere classified; Z90.49 Acquired absence of other specified parts of digestive tract
CPT/HCPCS: 93975

== ENCOUNTER 2023-12-03 07:18 | Outpatient (CLI) | payer BC, OTHER ==
--- NOTE | 2023-12-03 14:49 | MRI Report ---
PROCEDURE: Lumbar Spine WO INDICATIONS: LUMBAR AND THORACIC BACK PAIN TECHNIQUE: Multiplanar multisequential MRI images of the lumbar spine were obtained without intraven ous contrast. COMPARISON: None. FINDINGS: Alignment and Curvature: There is normal bony alignment. Bone Marrow: Marrow is of normal overall signal. No acute vertebral body compression fractures. No sacral fractures. Spinal Cord: Conus medullaris terminates at the L1 level. Visualized cord demonstrates normal signa l and size. Paraspinal Soft Tissues: Left renal cyst, cortical cyst. T12-L1: Normal in appearance. L1-L2: Normal in appearance. L2-L3: Normal in appearance. L3-L4: Normal in appearance. L4-L5: Disc spaces maintained. No disc bulge or protrusion. Mild facet arthropathy. No central or f oraminal stenosis L5-S1: Disc spaces maintained. Mild disc bulge without central or foraminal stenosis. Mild bilatera l facet arthropathy. No foraminal stenosis IMPRESSION: Mild degenerative changes without central or foraminal stenosis throughout the exam Reviewed by: Michael Vilchis MD on 12/03/2023 1:47 PM [facility] Approved by: Michael Vilchis MD on 12/03/2023 1:47 PM [email or web address] Station ID: [id number]
--- NOTE | 2023-12-03 16:18 | MRI Report ---
PROCEDURE: Thoracic Spine WO INDICATIONS: LUMBAR AND THORACIC BACK PAIN TECHNIQUE: Multiplanar multisequence MR images of the thoracic spine was obtained without contrast COMPARISON: None FINDINGS: Alignment and Curvature: There is normal bony alignment. Bone Marrow: Marrow is of normal overall signal. No acute vertebral body compression fractures. Spinal Cord: At the T4 level, the thoracic cord is displaced anteriorly within the thecal sac. Normal -appearing CSF is noted dorsally. No cord edema. Cord is otherwise unremarkable throughout the exam. Paraspinal Soft Tissues: No paravertebral masses. Miscellaneous: On axial images, central canal and foramina appear widely patent at all scanned level s. 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 No cord edema. Consider follow-up CT myelogram Reviewed by: Michael Vilchis MD on 12/03/2023 3:17 PM [facility] Approved by: Michael Vilchis MD on 12/03/2023 3:17 PM [place] Station ID: [id number]
== END 2023-12-03 07:19 | disposition home or self-care (01) ==
LOC: DI 07:18
PROVIDERS: ATTEND Registered Nurse
DX: M54.6 Pain in thoracic spine (principal); M47.816 Spondylosis without myelopathy or radiculopathy, lumbar region; M47.817 Spondylosis without myelopathy or radiculopathy, lumbosacral region